=== PATIENT | male | born 1955 | race Two or more races ===

== ENCOUNTER 2020-05-22 06:53 | Outpatient (REF) | payer OTHER, SELFPAY ==
[2020-05-22 09:34] LABS: Alanine Aminotransferase 13 U/L (0-40); Alkaline Phosphatase 77 U/L (39-117); Anion Gap 13 (12-20); Aspartate Amino Transferase 16 U/L (5-37); Bilirubin Total 0.5 mg/dL (0.0-1.0); Blood Urea Nitrogen 16 mg/dL (9-16); Calcium 8.8 mg/dL (8.4-10.2); Carbon Dioxide 27 mmol/L (22-29); Chloride 103 mmol/L (96-108); Cholesterol 140 mg/dL; Estimated Glomerular Filt Rate > 60; Glucose Fasting 92 mg/dL (60-99); HDL Cholesterol 42 mg/dL; LDL Cholesterol Calculated 76 mg/dl; Potassium 4.1 mmol/l (3.3-5.1); Sodium 139 mmol/L (135-145); Total Protein 7.3 g/dL (6.5-8.0); Triglycerides 114 mg/dL
[2020-05-22 10:14] LABS: PSA,Total (Free>4and<10) 0.62 ng/mL (0.00-4.00)
== END 2020-05-22 06:54 | disposition home or self-care (01) ==
LOC: HO.LAB 06:53
PROVIDERS: Visit Provider Internal Medicine
DX: I10 Essential (primary) hypertension (principal); F52.4 Premature ejaculation
CPT/HCPCS: 80053; 80061; 84153

== ENCOUNTER → 2020-05-24 08:36 | Outpatient (BNVA) | payer OTHER, SELFPAY | PROVIDERS: PCP Internal Medicine; Referring Provider Internal Medicine; Visit Provider Nurse Practitioner | DX: K59.04 Chronic idiopathic constipation (principal); K58.0 Irritable bowel syndrome with diarrhea; K21.9 Gastro-esophageal reflux disease without esophagitis; K27.9 Peptic ulcer, site unspecified, unspecified as acute or chronic, without hemorrhage or perforation; Z79.899 Other long term (current) drug therapy; Z90.49 Acquired absence of other specified parts of digestive tract | CPT/HCPCS: 99212 ==

== ENCOUNTER → 2020-07-04 15:22 | Outpatient (BNVA) | payer OTHER, SELFPAY | PROVIDERS: PCP Internal Medicine; Visit Provider Student in an Organized Health Care Education/Training Program | DX: Z76.89 Persons encountering health services in other specified circumstances (principal) ==

== ENCOUNTER → 2020-07-25 13:34 | Outpatient (BNVA) | payer OTHER, SELFPAY | PROVIDERS: PCP Internal Medicine; Visit Provider Internal Medicine Cardiovascular Disease | DX: I48.0 Paroxysmal atrial fibrillation (principal); Z86.79 Personal history of other diseases of the circulatory system | CPT/HCPCS: 93005; 99212 ==

== ENCOUNTER → 2020-08-01 09:05 | Outpatient (BNVA) | payer OTHER, SELFPAY | PROVIDERS: PCP Internal Medicine; Visit Provider Nurse Practitioner ==

== ENCOUNTER 2020-10-02 09:25 | Outpatient (REF) | payer OTHER, SELFPAY | END 2020-10-02 09:26 | disposition home or self-care (01) | LOC: HO.LAB 09:25 | PROVIDERS: Visit Provider Internal Medicine | DX: Z20.822 Contact with and (suspected) exposure to COVID-19 (principal) | CPT/HCPCS: 36415; C9803; U0003; U0005 ==

== ENCOUNTER → 2020-10-31 09:43 | Outpatient (BNVA) | payer OTHER, SELFPAY | PROVIDERS: PCP Internal Medicine; Visit Provider Nurse Practitioner | DX: K58.9 Irritable bowel syndrome, unspecified (principal); K21.9 Gastro-esophageal reflux disease without esophagitis; K59.04 Chronic idiopathic constipation; K27.9 Peptic ulcer, site unspecified, unspecified as acute or chronic, without hemorrhage or perforation ==

== ENCOUNTER → 2020-11-29 10:20 | Outpatient (REF) | payer MEDICARE, MEDICAID, SELFPAY ==
--- NOTE | 2020-11-29 10:25 | CA_ITS ---
Transthoracic Echocardiogram Patient (Last, First, Middle): Vaughn Antonio, Gender: Male Date of : 1955 Age: 65 Procedure Date: 11/29/2020 Procedure Type: Transthoracic Echocardiogram Location: OP Height: 180.34 cm Weight: 156.95 kg BSA: 2.66 m2 Heart Rate: bpm BP: 130 / 71 mmHg Customer Engagement Representative: WALLACE Referring MD: Christiano Reyes MD Lan Analyst: Christiano Reyes MD Symptoms: I48.0 - Paroxysmal atrial fibrillation Study Quality: Fair ECG Rhythm: Sinus Conclusions: - 1. Normal LV systolic function with mild LVH with impaired relaxation filling pattern 2. Mildly dilated left atrium 3. Normal cardiac valvular Doppler 4. Normal RV systolic pressure 5. No pericardial effusion Findings Procedure Information Contrast agent, definity, is being given per protocol without apparent complications. Left Ventricle Normal left ventricular size and systolic function. There is mildly increased left ventricular wall thickness. The visually estimated ejection fraction is between 60-65%. Spectral Doppler is indicative of an impaired relaxation filling pattern. E/E prime ratio is between 8 and 15 consistent with indeterminate filling pressures. Right Ventricle Normal right ventricular cavity size and systolic function. Atria The left atrium is mildly dilated. Interatrial shunt cannot be excluded. The right atrium is normal in size. Aortic Valve The aortic valve structure and function is likely normal. There is no aortic valve stenosis. There is no aortic valve regurgitation. Mitral Valve Likely normal mitral valve structure and function. There is trace mitral valve regurgitation. There is no mitral valve stenosis. Pulmonic Valve The pulmonic valve was not well visualized. Tricuspid Valve Likely normal tricuspid valve structure and function. There is trace tricuspid valve regurgitation. The right ventricular systolic pressure is normal. The right ventricular systolic pressure is 32 mmHg. There is no evidence of pulmonary hypertension. Great Vessels All visible segments of the aorta are normal in size. The pulmonary artery was not well visualized. Venous The inferior vena cava is normal in size and collapses greater than 50% with inspiration. Pericardium/Pleural There is no evidence of pericardial effusion. Prior Study Comparison No significant change compared to prior study dated: 01/04/2020. Measurements 2D Linear Measurements IVSd: 1.23 0.6-0.9/0.6-1.0 cm LVIDd: 6.20 3.9-5.3/4.2-5.9 cm LVIDd Index: 2.33 2.4-3.2/2.2-3.1 cm/m2 LVIDs: 4.53 2.0-3.6 cm LVPWd: 1.12 0.7-1.1 cm Ao Root: 2.80 2.1-3.5 cm LA Diam: 4.10 2.7-3.8/3.0-4.0 cm LAIDs Index: 1.54 1.5-2.3 cm/m2 LV Mass: 402.17 67-162/88-224 g LV Mass Index: 151.19 43-95/49-115 g/m2 LVOT Diam: 2.20 3.0+(-)1.3 cm 2D Systolic Function EF 4C: 67.80 >55% EF 2C: 59.60 >55% EF BiP: 63.80 >55% Mitral Valve MV Pk E: 0.78 MV PK A: 0.93 MV Decel Time: 294.00 E/A: 0.80 E'Lateral: 5.66 E'Medial: 5.44 E/E' Med: 14.40 E/E' Lat: 13.80 PHT: 86.00 MVA PHT: 2.56 Decel [place]: 2.67 Aortic Valve AoV Pk Niko: 1.79 AoV Pk Grad: 13.00 LVOT LVOT Pk Niko: 1.12 LVOT Mn Niko: 0.75 LVOT VTI: 0.26 LVOT Pk Grad: 5.00 LVOT Mn Grad: 3.00 LVOT Diam: 2.20 LVOT Area: 3.80 Diastolic Function MV Pk E: 0.78 MV Pk A: 0.93 E/A: 0.80 E'Medial: 5.44 E/E' Med: 14.40 E' Laterial: 5.66 E/E' Lat: 13.80 Tricuspid Valve TR Pk Niko: 2.67 TR Pk Grad: 29.00 RA Press: 3.00 RVSP: 32.00 Great Vessels Aorta Ao Root-2D: 2.80 2.0-3.7 cm Ao Asc: 3.30 2.1-3.4 cm Updated in Other Vendor System with Status of Final Christiano Reyes MD electronically signed on 12/01/2020 12:45:08 PM with status of Final
== END ==
LOC: HO.CARD 10:20
PROVIDERS: Visit Provider Internal Medicine Cardiovascular Disease
DX: I10 Essential (primary) hypertension (principal); I48.0 Paroxysmal atrial fibrillation; Z86.79 Personal history of other diseases of the circulatory system
CPT/HCPCS: 93306; Q9957

== ENCOUNTER → 2021-01-11 10:41 | Outpatient (BNVA) | payer MEDICARE, MEDICAID, SELFPAY | PROVIDERS: PCP Internal Medicine; Visit Provider Student in an Organized Health Care Education/Training Program | DX: M89.49 Other hypertrophic osteoarthropathy, multiple sites (principal) | CPT/HCPCS: 99212 ==

== ENCOUNTER → 2021-02-06 08:46 | Outpatient (BNVA) | payer MEDICARE, MEDICAID, SELFPAY | PROVIDERS: PCP Internal Medicine; Referring Provider Internal Medicine; Visit Provider Internal Medicine Cardiovascular Disease | DX: I48.0 Paroxysmal atrial fibrillation (principal); Z86.79 Personal history of other diseases of the circulatory system | CPT/HCPCS: 99212 ==

== ENCOUNTER → 2021-02-13 11:05 | Outpatient (BNVA) | payer MEDICARE, MEDICAID, SELFPAY | PROVIDERS: PCP Internal Medicine; Visit Provider Nurse Practitioner Family | DX: Z13.89 Encounter for screening for other disorder (principal) | CPT/HCPCS: Q3014 ==

== ENCOUNTER → 2021-04-17 15:33 | Outpatient (BNVA) | payer MEDICARE, MEDICAID, SELFPAY | PROVIDERS: PCP Internal Medicine; Visit Provider Nurse Practitioner | DX: Z12.11 Encounter for screening for malignant neoplasm of colon (principal); K27.9 Peptic ulcer, site unspecified, unspecified as acute or chronic, without hemorrhage or perforation; K21.9 Gastro-esophageal reflux disease without esophagitis; K59.04 Chronic idiopathic constipation; I48.0 Paroxysmal atrial fibrillation; G47.33 Obstructive sleep apnea (adult) (pediatric); E66.01 Morbid (severe) obesity due to excess calories; Z79.01 Long term (current) use of anticoagulants | CPT/HCPCS: Q3014 ==

== ENCOUNTER 2021-05-25 13:30 | Outpatient (REF) | payer MEDICARE, MEDICAID, SELFPAY | END 2021-05-25 13:31 | disposition home or self-care (01) | LOC: HO.LAB 13:30 | PROVIDERS: Visit Provider Internal Medicine | DX: Z20.822 Contact with and (suspected) exposure to COVID-19 (principal) | CPT/HCPCS: C9803; U0003; U0005 ==

== ENCOUNTER 2021-08-02 09:35 | Outpatient (REF) | payer MEDICARE, MEDICAID, SELFPAY ==
[2021-08-02 11:53] LABS: Anion Gap 13 (12-20); Blood Urea Nitrogen 13 mg/dL (9-16); Calcium 9.6 mg/dL (8.4-10.2); Carbon Dioxide 23 mmol/L (22-29); Chloride 106 mmol/L (96-108); Estimated Glomerular Filt Rate 59; Glucose Random 154 mg/dL (60-115); Potassium 3.9 mmol/L (3.3-5.1); Sodium 138 mmol/L (135-145)
== END 2021-08-02 09:36 | disposition home or self-care (01) ==
LOC: HO.LAB 09:35
PROVIDERS: PCP Internal Medicine; Referring Provider Internal Medicine; Visit Provider Internal Medicine Cardiovascular Disease
DX: I48.0 Paroxysmal atrial fibrillation (principal); Z86.79 Personal history of other diseases of the circulatory system
CPT/HCPCS: 36415; 80048; 93005; 99212

== ENCOUNTER → 2021-10-23 09:16 | Outpatient (BNVA) | payer MEDICARE, MEDICAID, SELFPAY | PROVIDERS: PCP Internal Medicine; Visit Provider Nurse Practitioner Family | DX: G47.33 Obstructive sleep apnea (adult) (pediatric) (principal); Z99.89 Dependence on other enabling machines and devices | CPT/HCPCS: 99212 ==

== ENCOUNTER → 2021-11-22 10:07 | Outpatient (BNVA) | payer MEDICARE, MEDICAID, SELFPAY | PROVIDERS: PCP Internal Medicine; Referring Provider Internal Medicine; Visit Provider Nurse Practitioner | DX: Z12.11 Encounter for screening for malignant neoplasm of colon (principal); K21.9 Gastro-esophageal reflux disease without esophagitis; K59.04 Chronic idiopathic constipation | CPT/HCPCS: 99212 ==

== ENCOUNTER → 2022-01-11 08:39 | Outpatient (REF) | payer MEDICARE, MEDICAID, SELFPAY ==
--- NOTE | 2022-01-11 08:42 | CA_ITS ---
Transthoracic Echocardiogram Patient (Last, First, Middle): Vaughn Antonio, Gender: Male Date of : 1955 Age: 66 Procedure Date: 01/11/2022 Procedure Type: Transthoracic Echocardiogram Location: OP Height: 180.34 cm Weight: 156.49 kg BSA: 2.66 m2 Heart Rate: bpm BP: 139 / 75 mmHg International Marketing Specialist: TO Referring MD: Christiano Reyes MD Symptoms: Z86.79 - Personal history of other diseases of the circul... Study Quality: Technically Difficult/Contrast ECG Rhythm: Sinus Conclusions: - The left ventricular systolic function is normal. The calculated ejection fraction is 60% by biplane method. - No obvious valvular pathology seen on this study. Findings Procedure Information Contrast agent, definity, is being given per protocol without apparent complications. Left Ventricle Normal left ventricular cavity size. There is mildly increased left ventricular wall thickness. The left ventricular systolic function is normal. The calculated ejection fraction is 60% by biplane method. There is no evidence of regional wall motion abnormalities. Diastolic function is normal for age. Right Ventricle Normal right ventricular cavity size and systolic function. Atria The left atrium is mildly dilated. The right atrium is normal in size. Aortic Valve There is a normal trileaflet aortic valve. There is no aortic valve stenosis. There is no aortic valve regurgitation. Mitral Valve The mitral valve appears normal. There is mild mitral annular calcification. There is no mitral valve regurgitation. There is no mitral valve stenosis. Pulmonic Valve There is trace pulmonic valve regurgitation. Tricuspid Valve There is trace tricuspid valve regurgitation. The pulmonary artery systolic pressure is normal. Great Vessels The aortic annulus, sinuses of valsalva, and asc aorta are normal in size. Small plaque is seen in the sino tubular ridge. Venous The inferior vena cava was not well visualized. Pericardium/Pleural There is no evidence of pericardial effusion. Prior Study Comparison No significant change compared to prior study dated: 11/29/2020. Recommendations, Care & Conclusions No obvious valvular pathology seen on this study. Measurements 2D Linear Measurements IVSd: 1.17 0.6-0.9/0.6-1.0 cm LVIDd: 6.31 3.9-5.3/4.2-5.9 cm LVIDd Index: 2.37 2.4-3.2/2.2-3.1 cm/m2 LVIDs: 4.16 2.0-3.6 cm LVPWd: 1.15 0.7-1.1 cm LA Diam: 4.30 2.7-3.8/3.0-4.0 cm LAIDs Index: 1.62 1.5-2.3 cm/m2 LV Mass: 407.16 67-162/88-224 g LV Mass Index: 153.07 43-95/49-115 g/m2 LVOT Diam: 2.10 3.0+(-)1.3 cm 2D Systolic Function EF 4C: 57.90 >55% EF 2C: 62.00 >55% EF BiP: 59.80 >55% Mitral Valve MV Pk E: 0.89 MV PK A: 0.93 MV Decel Time: 269.00 E/A: 1.00 E'Lateral: 7.29 E'Medial: 5.11 E/E' Med: 17.40 E/E' Lat: 12.20 PHT: 79.00 MVA PHT: 2.78 Decel [place]: 3.31 Aortic Valve AoV Pk Niko: 1.94 AoV Mn Niko: 1.33 AoV VTI: 0.46 AoV Pk Grad: 15.00 Aov Mn Grad: 8.00 DARNELL Cont.VTI: 2.16 LVOT LVOT Pk Niko: 1.20 LVOT Mn Niko: 0.73 LVOT VTI: 0.29 LVOT Pk Grad: 6.00 LVOT Mn Grad: 3.00 LVOT Diam: 2.10 LVOT Area: 3.46 Diastolic Function MV Pk E: 0.89 MV Pk A: 0.93 E/A: 1.00 E'Medial: 5.11 E/E' Med: 17.40 E' Laterial: 7.29 E/E' Lat: 12.20 Right Ventricle TAPSE (mm): 28.70 TVS' Niko: 15.20 Tricuspid Valve TR Pk Niko: 2.85 TR Pk Grad: 33.00 Great Vessels Aorta Sinus of Valsalva: 3.28 2.0-3.[address] [place]: 2.28 1.7-3.4 cm Ao Asc: 3.60 2.1-3.4 cm Updated in Other Vendor System with Status of Final Gamal Elizabeth MD electronically signed on 01/13/2022 12:43:04 PM with status of Final
== END ==
LOC: HO.CARD 08:39
PROVIDERS: PCP Internal Medicine; Visit Provider Internal Medicine Cardiovascular Disease
DX: M89.49 Other hypertrophic osteoarthropathy, multiple sites (principal); M25.561 Pain in right knee; M25.562 Pain in left knee; M54.50 Low back pain, unspecified; Z79.899 Other long term (current) drug therapy; Z86.79 Personal history of other diseases of the circulatory system
CPT/HCPCS: 93306; 99212; Q9957

== ENCOUNTER → 2022-02-04 09:26 | Outpatient (BNVA) | payer MEDICARE, MEDICAID, SELFPAY | PROVIDERS: PCP Internal Medicine; Referring Provider Internal Medicine; Visit Provider Internal Medicine Cardiovascular Disease | DX: I48.0 Paroxysmal atrial fibrillation (principal); I10 Essential (primary) hypertension; Z86.79 Personal history of other diseases of the circulatory system; Z79.01 Long term (current) use of anticoagulants | CPT/HCPCS: 99212 ==

== ENCOUNTER 2022-03-21 06:40 | Outpatient (REF) | payer MEDICARE, MEDICAID, SELFPAY ==
[2022-03-21 06:56] LABS: MANUAL DIFF FLAG NO
[2022-03-21 07:41] LABS: Basophils Absolute Auto 0.1 X10*3/uL (0.0-0.2); Basophils Percent Auto 0.7 % (0-2); Eosinophils Absolute Auto 0.2 X10*3/uL (0.0-0.4); Eosinophils Percent Auto 1.9 % (0-4); Hematocrit 43.8 % (42.0-52.0); Hemoglobin 14.2 g/dl (14.0-18.0); Imm Gran Abs Auto 0.03 X10*3/uL (0.00-0.03); Imm Gran Pct Auto 0.3 % (0.0-0.4); Lymphocytes Absolute Auto 3.2 X10*3/uL (1.2-4.9); Lymphocytes Percent Auto 35.6 % (20-40); Mean Corpuscular HGB Conc 32.4 g/dl (31.0-36.0); Mean Corpuscular Hemoglobin 28.6 pg (27.0-33.0); Mean Corpuscular Volume 88.3 fL (80.0-98.0); Mean Platelet Volume 10.4 fL (9.4-12.4); Monocytes Absolute Auto 0.6 X10*3/uL (0.1-1.2); Monocytes Percent Auto 6.8 % (2-11); Neutrophils Absolute Auto 4.9 x10*3/uL (2.0-8.3); Neutrophils Percent Auto 54.7 % (45-73); Platelet Count 172 X10*3/uL (160-400); Red Blood Count 4.96 X10*6/uL (4.60-5.80); Red Cell Distribution Width 13.2 % (11.0-16.0); White Blood Count 8.9 X10*3/uL (4.8-10.8)
[2022-03-21 08:14] LABS: Alanine Aminotransferase 11 U/L (0-40); Albumin Level 4.1 g/dL (3.5-5.0); Alkaline Phosphatase 79 U/L (39-117); Anion Gap 16 (12-20); Aspartate Amino Transferase 15 U/L (5-37); Bilirubin Total 0.7 mg/dL (0.0-1.0); Blood Urea Nitrogen 11 mg/dL (9-16); Calcium 9.2 mg/dL (8.4-10.2); Carbon Dioxide 24 mmol/L (22-29); Chloride 104 mmol/L (96-108); Cholesterol 138 mg/dL; Estimated Glomerular Filt Rate > 60; Glucose Fasting 90 mg/dL (60-99); HDL Cholesterol 43 mg/dL; LDL Cholesterol Calculated 78 mg/dl; Potassium 4.1 mmol/L (3.3-5.1); Sodium 140 mmol/L (135-145); Total Protein 7.4 g/dL (6.5-8.0); Triglycerides 88 mg/dL
[2022-03-21 08:45] LABS: Thyroid Stimulating Hormone 2.42 uIU/mL (0.32-4.0); Vitamin D 25-OH Total 18.3 ng/mL (>30)
== END 2022-03-21 06:41 | disposition home or self-care (01) ==
LOC: HO.LAB 06:40
PROVIDERS: PCP Internal Medicine; Visit Provider Internal Medicine
DX: Z00.00 Encounter for general adult medical examination without abnormal findings (principal); E66.01 Morbid (severe) obesity due to excess calories; E55.9 Vitamin D deficiency, unspecified; M89.49 Other hypertrophic osteoarthropathy, multiple sites
CPT/HCPCS: 36415; 80053; 80061; 82306; 84443; 85025

== ENCOUNTER → 2022-04-23 09:10 | Outpatient (BNVA) | payer MEDICARE, MEDICAID, SELFPAY | PROVIDERS: PCP Internal Medicine; Visit Provider Nurse Practitioner Family | DX: G47.33 Obstructive sleep apnea (adult) (pediatric) (principal) | CPT/HCPCS: 99212 ==

== ENCOUNTER → 2022-06-12 09:52 | Outpatient (BNVA) | payer MEDICARE, MEDICAID, SELFPAY | PROVIDERS: PCP Internal Medicine; Visit Provider Nurse Practitioner | DX: K21.9 Gastro-esophageal reflux disease without esophagitis (principal); K58.9 Irritable bowel syndrome, unspecified; K27.9 Peptic ulcer, site unspecified, unspecified as acute or chronic, without hemorrhage or perforation | CPT/HCPCS: 99212 ==

== ENCOUNTER 2022-09-02 07:30 | Outpatient (REF) | payer OTHER, SELFPAY | END 2022-09-02 07:31 | disposition home or self-care (01) | LOC: HO.LAB 07:30 | PROVIDERS: PCP Internal Medicine; Visit Provider Internal Medicine | DX: Z13.89 Encounter for screening for other disorder (principal) ==

== ENCOUNTER 2022-09-04 07:42 | Outpatient (REF) | payer MEDICARE, SELFPAY ==
--- NOTE | ~2022-09-04 | US_ITS ---
EXAMINATION: US RETROPERITONEAL LIMITED (AORTA) CLINICAL INFORMATION: Personal history of nicotine dependence. COMPARISON: None TECHNIQUE: Varghese-scale, color Doppler and spectral Doppler evaluation of the abdominal aorta. FINDINGS: The aorta is normal. The measurements of the aorta in maximum AP and transverse dimensions respectively are as follows: Proximal: 2.7 x 3.0 cm. Mid: 2.2 x 3.0 cm. Distal: 2.4 x 3.1 cm. PSV: 68.1 cm/s. The measurements of the common iliac arteries in maximum AP and TRV dimensions are as follows: Right Common Iliac Artery: 1.6 x 1.7 cm. Left Common Iliac Artery: 1.4 x 1.6 cm. US/US abdominal aortic aneurysm IMPRESSION: There is mild aneurysmal dilatation of the abdominal aorta and bilateral iliac arteries. Continued ultrasound surveillance is recommended. Elective VASCULAR SURGERY evaluation and management is considered.
== END 2022-09-04 07:43 | disposition home or self-care (01) ==
LOC: HO.US 07:42
PROVIDERS: Visit Provider Internal Medicine
DX: Z87.891 Personal history of nicotine dependence (principal)
CPT/HCPCS: 76706

== ENCOUNTER 2022-09-04 07:52 | Outpatient (REF) | payer MEDICARE, SELFPAY ==
[2022-09-04 08:08] LABS: Appearance Urine Clear; Color Urine Yellow; Glucose Urine UA Negative (Negative); Leukocyte Esterase Urine Small (1+) (Negative); Nitrite Urine Negative (Negative); Specific Gravity - Urine 1.025 (1.005-1.025); UMIC TRIGGER UACC YES; Urine Blood Negative (Negative); Urine Ketones Negative (Negative); Urine Protein Negative (Neg-Trace)
[2022-09-04 08:13] LABS: Bacteria Urine None Seen (None Seen); Hyaline Casts Urine 0-2 /LPF (0-2); RBC Urine 0-2 /HPF (0-2); Squamous Epithelial Cell Urine 0-2 /HPF (0-2); UACC Culture Trigger YES; WBC Urine 21-50 /HPF (0-5)
== END 2022-09-04 07:53 | disposition home or self-care (01) ==
LOC: HO.LNP 07:52
PROVIDERS: Visit Provider Internal Medicine
DX: R30.0 Dysuria (principal)
CPT/HCPCS: 81001; 81003; 87086

== ENCOUNTER 2022-10-09 07:33 | Outpatient (REF) | payer OTHER, MEDICAID, SELFPAY ==
--- NOTE | ~2022-10-09 | XR_ITS ---
EXAMINATION: Knee x-ray CLINICAL INFORMATION: Bilateral knee pain COMPARISON: Previous exam February 2016 TECHNIQUE: 4 views of each knee FINDINGS: Right: Bone alignment is normal. No fracture or dislocation. Arthritis at the medial femoral tibial and patellofemoral joints with joint space narrowing and osteophyte formation. Lateral tilt of the patella on the sunrise view. Small joint effusion. Question ossified intra-articular loose body. Left: Bone alignment is normal. No fracture or dislocation. Arthritis at the patellofemoral and medial femoral tibial joints. Lateral tilt of the patella on the sunrise view. Small joint effusion. XR/XR knee LT 3V IMPRESSION: Bilateral degenerative changes, right greater than left.
--- NOTE | ~2022-10-09 | XR_ITS ---
EXAMINATION: Knee x-ray CLINICAL INFORMATION: Bilateral knee pain COMPARISON: Previous exam February 2016 TECHNIQUE: 4 views of each knee FINDINGS: Right: Bone alignment is normal. No fracture or dislocation. Arthritis at the medial femoral tibial and patellofemoral joints with joint space narrowing and osteophyte formation. Lateral tilt of the patella on the sunrise view. Small joint effusion. Question ossified intra-articular loose body. Left: Bone alignment is normal. No fracture or dislocation. Arthritis at the patellofemoral and medial femoral tibial joints. Lateral tilt of the patella on the sunrise view. Small joint effusion. XR/XR knee RT 3V IMPRESSION: Bilateral degenerative changes, right greater than left.
[2022-10-09 08:24] LABS: Appearance Urine Clear; Color Urine Yellow; Glucose Urine UA Negative (Negative); Leukocyte Esterase Urine Small (1+) (Negative); Nitrite Urine Negative (Negative); PH 5.5 (5.0-9.0); Specific Gravity - Urine 1.025 (1.005-1.025); UMIC TRIGGER UACC YES; Urine Blood Negative (Negative); Urine Ketones Negative (Negative); Urine Protein 30 (1+) mg/dL (Neg-Trace)
[2022-10-09 08:29] LABS: Bacteria Urine None Seen (None Seen); Hyaline Casts Urine 0-2 /LPF (0-2); RBC Urine 0-2 /HPF (0-2); UACC Culture Trigger YES
[2022-10-09 08:43] LABS: Alanine Aminotransferase 18 U/L (0-40); Albumin Level 4.2 g/dL (3.5-5.0); Alkaline Phosphatase 81 U/L (39-117); Anion Gap 16 (12-20); Aspartate Amino Transferase 16 U/L (5-37); Bilirubin Total 0.7 mg/dL (0.0-1.0); Blood Urea Nitrogen 26 mg/dL (9-16); Calcium 9.5 mg/dL (8.4-10.2); Carbon Dioxide 22 mmol/L (22-29); Chloride 107 mmol/L (96-108); Cholesterol 154 mg/dL; Estimated Glomerular Filt Rate 56; Glucose Fasting 117 mg/dL (60-99); HDL Cholesterol 45 mg/dL; LDL Cholesterol Calculated 82 mg/dl; Sodium 141 mmol/L (135-145); Total Protein 7.3 g/dL (6.5-8.0); Triglycerides 136 mg/dL
[2022-10-09 09:04] LABS: Folate 5.7 ng/mL (> or = 4.0); Vitamin B12 213 pg/mL (200-900); Vitamin D 25-OH Total 35.1 ng/mL (>30)
== END 2022-10-09 07:34 | disposition home or self-care (01) ==
LOC: HO.XRAY 07:33
PROVIDERS: Absent Provider Nurse Practitioner Family; PCP Internal Medicine; Visit Provider Internal Medicine
DX: E53.8 Deficiency of other specified B group vitamins (principal); I48.0 Paroxysmal atrial fibrillation; E55.9 Vitamin D deficiency, unspecified; E78.5 Hyperlipidemia, unspecified; M25.561 Pain in right knee; M25.562 Pain in left knee; K21.9 Gastro-esophageal reflux disease without esophagitis; K58.9 Irritable bowel syndrome, unspecified; R82.90 Unspecified abnormal findings in urine
CPT/HCPCS: 36415; 73562; 80053; 80061; 81001; 81003; 82306; 82607; 82746; 87086; 99212

== ENCOUNTER → 2022-10-22 13:04 | Outpatient (BNVA) | payer OTHER, MEDICAID, SELFPAY | PROVIDERS: PCP Internal Medicine; Visit Provider Surgery Vascular Surgery | DX: I71.40 Abdominal aortic aneurysm, without rupture, unspecified (principal) | CPT/HCPCS: 99212 ==

== ENCOUNTER → 2022-11-01 09:14 | Outpatient (BNVA) | payer MEDICARE, MEDICAID, SELFPAY | PROVIDERS: PCP Internal Medicine; Visit Provider Nurse Practitioner Family | DX: M17.0 Bilateral primary osteoarthritis of knee (principal); M54.50 Low back pain, unspecified; M25.511 Pain in right shoulder; M25.512 Pain in left shoulder; R20.0 Anesthesia of skin; R20.2 Paresthesia of skin | CPT/HCPCS: 99212 ==

== ENCOUNTER 2022-11-13 12:05 | Outpatient (REF) | payer OTHER, MEDICAID, SELFPAY ==
--- NOTE | 2022-11-13 09:45 | EMG_ITS ---
Please see scanned EMG / Nerve Conduction Report. MTDD
== END 2022-11-13 12:06 | disposition home or self-care (01) ==
LOC: HO.NEURO 12:05
PROVIDERS: PCP Internal Medicine; Visit Provider Nurse Practitioner Family
DX: R20.0 Anesthesia of skin (principal); R20.2 Paresthesia of skin
CPT/HCPCS: 95885; 95910

== ENCOUNTER 2023-01-24 09:22 | Outpatient (AMB) | payer OTHER, MEDICAID, SELFPAY ==
--- NOTE | 2023-01-24 09:42 | A.OFFVIS_ITS ---
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 States this started about 2-3 months and worsens at night time. Vaughn states he has on and off numbness through out the day. At times he has pain by his elbow and feels like a cold radiating pain down his arm. States he was seen by his neurologist who RX' him b/l hand wrist but was unable to obtain them due to miscommunication between providers. EMG done. 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 He complains of numbness in the median nerve distribution of his right hand, along with some numbness & coldness radiating down from his elbow. His symptoms are intermittent, but daily, and worse at night or in cold weather or air conditioning indoors. He says his numbness has been present for ~3 months. He also complains of pain in his right elbow. He follows with Rheumatology for generalized pain, but there is no diagnosis of inflammatory arthritis. He used to take Tramadol but stopped due to GI upset, and now he just uses Tylenol for pain relief. He says he was given bilateral cock-up splints to wear at night. He says he has an MRI scheduled on 01/27/23 to view his C-spine due to radic ulopathy. He has a Hx of aortic aneurysm & afib and is taking Xarelto [facility] Medical History Chronic idiopathic constipation History of cardiomyopathy HTN (hypertension) Mild asthma Obstructive sleep apnea Paroxysmal atrial fibrillation Physical exam Primary osteoarthritis involving multiple joints Shortness of breath Surgical History History of cholecystectomy History of esophagogastroduodenoscopy (EGD) Family History Mother Diabetes High blood pressure Heart attack Heart problem Father Diabetes Stomach problems Brother Diabetes High blood pressure Stomach problems Paternal Grandmother Lung cancer Sister Cancer Stomach problems Maternal Grandfather Heart problem Maternal Grandmother Heart problem Family/Other Substance use disorder Social History Household Members: Children Housing: Apartment Alcohol intake: former Patient Tobacco Use Status: Former Tobacco user Tobacco use type: Cigarette Cigarettes Per Day: 4 Years Smoked: 10 e-Cigarette/Vaping Use: Never Used Second Hand Smoke Exposure: No service: No Current occupational status: disabled Cognitive needs: Yes Hearing needs: No Vision needs: Yes Review of Systems Const All systems reviewed & are unremarkable except as noted in HPI and below Physical Exam Vital Signs: BMI result Body Mass Index 45.5 Const General: cooperative, healthy appearing and no acute distress Orientation/consciousness: patient oriented x3 HEENT Head: Yes normocephalic and Yes atraumatic Eyes EOM: EOMs intact bilaterally Resp Effort & Inspection: normal respiratory effort and able to speak in complete sentences Cardio Jugular venous distension: no JVD Skin General skin exam: turgor normal Rashes: no rashes Neuro General: patient oriented x3 Extrem Other: Evaluation of Right Upper Extremity: The patient is alert, oriented, and in no acute distress Neuro: Median, Ulnar, Radial nerves motor and sensory intact and sensation is normal to the tips of all digits today in clinic No thenar wasting but some early intrinsic wasting Good APB muscle belly firing and good finger cross Vascular: Cap refill brisk ROM: He can make a fist and extend all his digits Skin: No lacerations or abrasions. General: No Ecchymosis. No Erythema or evidence of infection. Generalized arthritic changes in his hand Nerve Conduction Study: Impression: Mild right carpal tunnel syndrome EMG of the right C5-T1 innervated muscles consistent with right C6 & C8-T1 radiculopathy Dr. Maurice 11/13/22 Psych Appearance: grossly normal Affect: normal affect Attitude: cooperative Assessment & Plan Assessment & Plan (1) Carpal tunnel syndrome of right wrist: Comment: EMG nerve conduction study 11/2022: Mild compression palsy of the right median nerve at the wrist consistent with mild carpal tunnel syndrome. Code(s): G56.01 - Carpal tunnel syndrome, right upper limb (2) Right cervical radiculopathy: Code(s): M54.12 - Radiculopathy, cervical region Plan Assessment & Plan: 1. Right Carpal tunnel syndrome, mild Symptoms intermittent, but daily, worse at night Possible double-crush injury with regards to cervical radiculopathy I educated him about this condition I discussed operative and non-operative treatment options The patient would like to proceed with surgery The risks and benefits of operative treatment were discussed with the patient and the patient wishes to proceed with surgery. These risks include, but are not limited to risk of damage to blood vessels, nerves, tendons, infection, recurrence, incomplete relief of preoperative symptoms, persistent pain, possible need for further surgery and the risks associated with regional blocks and anesthesia. The plan is to take the patient to the operating room sometime in the next few weeks for the following procedures: 1. Right carpal tunnel release, under local All of the preoperative paperwork including the consent was filled out today. All the patient's questions were answered. The patient understands that they will be contacted by our care team coordinator scheduler soon to schedule this procedure He denies Diabetes, asthma, heart, lung, kidney issues He is on Xarelto with a hx of aortic aneurysm and afib 2. Right-sided cervical radiculopathy Patient reports an MRI was ordered by Rheumatology and is scheduled for 01/27/23 I think he will likely need a referral to Pain Management for further work-up, but Rheumatology appears to be following this No intervention warranted at this time. Scribed for Maki Desai MD by Kaden Cary, medical dosimetrist, on 01/24/23 at 10:30 AM, EST. Coding Level of Care Code New Pt Level 4 (55042) Diagnoses Carpal tunnel syndrome of right wrist G56.01 Right cervical radiculopathy M54.12
[2023-01-24 09:43] VITALS: BMI 45.5
== END 2023-01-24 11:21 | disposition home or self-care (01) ==
PROVIDERS: PCP Internal Medicine; Visit Provider Orthopaedic Surgery
DX: G56.01 Carpal tunnel syndrome, right upper limb (principal); M54.12 Radiculopathy, cervical region
CPT/HCPCS: 99204

== ENCOUNTER → 2023-01-24 09:22 | Outpatient (BNVA) | payer OTHER, MEDICAID, SELFPAY | PROVIDERS: PCP Internal Medicine; Visit Provider Orthopaedic Surgery | DX: G56.01 Carpal tunnel syndrome, right upper limb (principal); M54.12 Radiculopathy, cervical region | CPT/HCPCS: 99202 ==

== ENCOUNTER → 2023-02-06 08:58 | Outpatient (REF) | payer MEDICARE, MEDICAID, SELFPAY | LOC: HO.CARD 08:58 | PROVIDERS: PCP Internal Medicine; Visit Provider Internal Medicine Cardiovascular Disease | DX: Z13.89 Encounter for screening for other disorder (principal) ==

== ENCOUNTER 2023-02-06 09:42 | Emergency (ER) | payer OTHER, MEDICAID, SELFPAY ==
[2023-02-06 09:47] VITALS: BP 141/76; PULSE 107; RESP 22; TEMP 36.8; O2SAT 97; BMI 48.6
--- NOTE | 2023-02-06 09:50 | ECG_ITS ---
Test Reason : cp Blood Pressure : / mmHG Vent. Rate : 117 BPM Atrial Rate : 000 BPM P-R Int : 000 ms QRS Dur : 100 ms QT Int : 312 ms P-R-T Axes : 000 044 244 degrees QTc Int : 435 ms Atrial fibrillation with rapid ventricular response T wave abnormality, consider inferior ischemia Abnormal ECG When compared with ECG of 23-DEC-2018 14:36, Atrial fibrillation has replaced Sinus rhythm Vent. rate has increased BY 41 BPM Referred By: Generic ED Physician Electronically Signed By:LETY MADDOX MD
--- NOTE | 2023-02-06 10:30 | ED_ITS ---
HPI - Arrhythmia/Palpitations General Chief Complaint: Arrhythmia/Palpitations Stated Complaint: Afib Time Seen by Provider: 02/06/23 10:02 Source: patient and other (Hydrotherapist, Dr. Reyes) Mode of arrival: wheelchair Limitations: no limitations History of Present Illness HPI narrative: 67-year-old male with a history of paroxysmal atrial fibrillation who was sent to emergency department from the cardiology lab for evaluation of atrial fibrillation with rapid ventricular rate of 150. The patient states that he was feeling well. He came to the hospital today for a routine echocardiogram. He denied chest pain, shortness of breath, dyspnea on exertion, palpitations. He states that he has not noticed any pain or swelling in his lower extremities. The patient had a echocardiogram our commodity merchant, Dr. Reyes and referred to the emergency department for rate control and further management. I did speak to Dr. Reyes in the emergency who recommended rate control with diltiazem as need, if the patient does not spontaneously cardiovert then he wants the patient admitted, kept NPO after midnight for observation and electric cardioversion in the morning. Related Data Home Medications Medication Instructions Recorded Confirmed CPAP (CPAP Machine/Device) #1 ea 10/31/20 11/05/22 Previous Rx's Medication Instructions Recorded azelastine 137 mcg (0.1 %) nasal 2 spray intranasal BID 30 days #30 02/13/21 spray aerosol mL fluticasone propionate 44 1 - 2 puff PO BID #31.8 caps 02/13/21 mcg/actuation HFA aerosol inhaler (Flovent HFA) trazodone 50 mg tablet 50 mg PO BEDTIME PRN sleep 90 days 06/04/21 #90 tabs blood pressure monitor (Blood #1 ea 05/09/22 Pressure Kit) losartan 100 mg tablet 100 mg PO DAILY 90 days #90 caps 06/13/22 metoprolol tartrate 50 mg tablet 50 mg PO BID 90 days #180 caps 06/13/22 rivaroxaban 20 mg tablet (Xarelto) 20 mg PO DAILY 90 days #90 caps 06/13/22 cholecalciferol (vitamin D3) 50 50 mcg PO DAILY 90 days #90 caps 09/10/22 mcg (2,000 unit) capsule famotidine 40 mg tablet (Pepcid) 40 mg PO BEDTIME 30 days #30 tabs 03/29/23 omeprazole 40 mg capsule,delayed 40 mg PO DAILY 30 days #30 caps 10/09/22 release sennosides 8.6 mg tablet (senna) 17.2 mg PO BEDTIME PRN for 10/09/22 constipation #60 tabs docusate sodium 100 mg capsule 100 mg PO DAILY PRN for 10/11/22 constipation #30 caps cock up slint #2 ea 11/01/22 rosuvastatin 5 mg tablet 5 mg PO DAILY 90 days #90 tabs 11/05/22 Allergies Allergy/AdvReac Type Severity Reaction Status Date / Time No Known Allergies Allergy Verified 01/24/23 09:49 Review of Systems Review of Systems: Yes all other systems are reviewed and are negative [facility] Past Medical History [facility] Narrative: Social history: Patient denies tobacco, alcohol and drug use Medical History Chronic idiopathic constipation History of cardiomyopathy HTN (hypertension) Mild asthma Obstructive sleep apnea Paroxysmal atrial fibrillation Physical exam Primary osteoarthritis involving multiple joints Shortness of breath Surgical History History of cholecystectomy History of esophagogastroduodenoscopy (EGD) Family History Family History Mother Diabetes High blood pressure Heart attack Heart problem Father Diabetes Stomach problems Brother Diabetes High blood pressure Stomach problems Paternal Grandmother Lung cancer Sister Cancer Stomach problems Maternal Grandfather Heart problem Maternal Grandmother Heart problem Family/Other Substance use disorder Social History Social History Household Members: Children Housing: Apartment Alcohol intake: never Patient Tobacco Use Status: Former Tobacco user Tobacco use type: Cigarette Cigarettes Per Day: 4 Years Smoked: 10 Smoked in Last 30 Days: No e-Cigarette/Vaping Use: Never Used Second Hand Smoke Exposure: No Use of substances other than those prescribed or required for medical reasons: No Advance Directives: No Advance Directives Information Provided: Yes service: No Current occupational status: disabled Cognitive needs: Yes Hearing needs: No Vision needs: Yes Physical Exam Vital Signs: Vital Signs: Last Vital Signs Temp 98.2 F 02/06/23 09:47 Pulse 94 02/06/23 14:02 Resp 22 H 02/06/23 14:02 BP 128/76 02/06/23 14:02 Pulse Ox 97 02/06/23 14:02 O2 Del Method Room Air 02/06/23 14:02 BMI result Body Mass Index 48.6 Const: General: cooperative and no acute distress Or ientation/consciousness: oriented to person and oriented to place Limitat ions: no limitations HEENT: Head: Yes normal to inspection, Yes normocephalic and Yes atraumatic Ears: external ears normal General nose exam: Normal external nose present Face and sinus: Yes normal facial exam Mouth: Normal oral and palatal mucosa present Throat: Yes posterior oropharynx normal Eyes: General: appearance normal, both eyes and all related structures Pupils: Equal, round and reactive pupils present Neck: Neck: Yes normal visual inspection, Yes no lymphadenopathy, Yes trachea midline and Yes supple Chest: Chest palpation & inspection: normal inspection of the chest and normal palpation of entire chest wall Resp: Effort & Inspection: normal respiratory effort and able to speak in complete sentences Auscultation: clear to auscultation bilaterally Cardio: Other: Irregularly irregular rhythm, normal S1-S2 GI: Inspection: Yes normal to inspection Palpation (GI): Soft to palpation, nontender and no guarding Auscultation: normal bowel sounds : General: Yes no CVA tenderness Back/Spine/Pelvis: Back: no CVA tenderness Skin: General skin exam: no rashes or lesions noted Neuro: General: oriented to person and oriented to place Cranial nerves: Yes CN's II-XII intact bilaterally and Yes Equal, round and reactive pupils present Cognition (Neuro): normal cognition Motor exam (neuro): 5/5 motor strength present throughout Extrem: General: Yes normal to inspection Psych: Appearance: grossly normal Speech and movement: Normal speech and movement present Affect: normal affect Attitude: cooperative Thought process: Normal thought process present Thought content: Normal thought co ntent present Medical Decision Making Medical Decision Making MDM Narrative: 67-year-old male with a history of hypertension, obstructive sleep apnea, asthma, GERD, irritable bowel syndrome, abdominal aortic aneurysm, paroxysmal atrial fibrillation on Xarelto who came to the hospital today for routine echoca rdiogram was found to be in atrial fibrillation with a rapid ventricular rate of 150. The commodity merchant, Dr. Reyes recommended that we control the patient's rate and if he does not spontaneously cardioverted to sinus rhythm the way admitted to the hospitalist service for cardioversion in the morning. I ordered the following evaluation on the patient: CBC, CMP, PT/INR, PTT, troponin, TSH 1433: Laboratory evaluation was unremarkable. Patient's rate has been controlled without any medications. Patient is still in atrial fibrillation on the monitor therefore I will discuss admission with the covering hospitalist. 1503: I did discuss this patient over tiger text with the covering hospitalist, Dr Samuels and the patient will be admitted to the hospital service. Differential Diagnosis Differential diagnosis includes was not limited to myocardial infarction, myocardial ischemia, hyperthyroidism, atrial fibrillation Admission/Observation Consideration of admission/observation: Escalation of care including admission/observation considered Consult Healthcare Provider Management of the patient was discussed with: Special Assets Officer (Hydrotherapist, Dr. Reyes) Lab Data MDM Lab Attestation statement: I reviewed the patient's lab results. My independent interpretation patient's laboratory evaluation is as follows: CBC was normal. Bicarb low 21, BUN elevated 21, glucose elevated 128, BNP was normal. Troponin was detectable but not elevated at 4.2. TSH was normal. 02/06/23 11:46 02/06/23 11:46 Labs: Lab Results 02/06/23 02/06/23 02/06/23 Range/Units 11:46 11:46 11:46 WBC 9.8 (4.8-10.8) X10*3/uL RBC 5.03 (4.60-5.80) X10*6/uL Hgb 14.9 (14.0-18.0) g/dl Hct 45.6 (42.0-52.0) % MCV 90.7 (80.0-98.0) fL MCH 29.6 (27.0-33.0) pg MCHC 32.7 (31.0-36.0) g/dl RDW 13.3 (11.0-16.0) % Plt Count 175 (160-400) X10*3/uL MPV 10.4 (9.4-12.4) fL Immature Gran % (Auto) 0.3 (0.0-0.4) % Neut % (Auto) 67.4 (45-73) % Lymph % (Auto) 23.1 (20-40) % [place] % (Auto) 7.7 (2-11) % Eos % (Auto) 1.0 (0-4) % Baso % (Auto) 0.5 (0-2) % Lymph # (Auto) 2.3 (1.2-4.9) X10*3/uL [place] # (Auto) 0.8 (0.1-1.2) X10*3/uL Eos # (Auto) 0.1 (0.0-0.4) X10*3/uL Baso # (Auto) 0.1 (0.0-0.2) X10*3/uL Abs Immat Gran (auto) 0.03 (0.00-0.03) X10*3/uL Absolute Neuts (auto) 6.6 (2.0-8.3) x10*3/uL Absolute Nucleated RBC 0.000 (0.0-0.012) X10*3/uL Nucleated RBC % (auto) 0.0 (0.0-0.2) /100WBC PT 18.0 H (11.1-13.3) SEC INR 1.5 H (0.9-1.1) APTT 31.4 (26.0-36.4) SEC Sodium 140 (135-145) mmol/L Potassium 3.8 (3.3-5.1) mmol/L Chloride 108 (96-108) mmol/L Carbon Dioxide 21 L (22-29) mmol/L Anion Gap 15 (12-20) BUN 21 H (9-16) mg/dL Creatinine 1.10 (0.5-1.4) mg/dL Estim Creat Clear Calc 99.8 Estimated GFR > 60 Random Glucose 128 H (60-115) mg/dL Calcium 9.6 (8.4-10.2) mg/dL Total Bilirubin 0.5 (0.0-1.0) mg/dL AST 13 (5-37) U/L ALT 13 (0-40) U/L Alkaline Phosphatase 68 (39-117) U/L Troponin I High Sens (<3.5-35.0) ng/L B-Natriuretic Peptide (<100) pg/mL Total Protein 7.1 (6.5-8.0) g/dL Albumin 3.9 (3.5-5.0) g/dL TSH 0.93 (0.32-4.0) uIU/mL 02/06/23 02/06/23 Range/Units 11:46 11:46 WBC (4.8-10.8) X10*3/uL RBC (4.60-5.80) X10*6/uL Hgb (14.0-18.0) g/dl Hct (42.0-52.0) % MCV (80.0-98.0) fL MCH (27.0-33.0) pg MCHC (31.0-36.0) g/dl RDW (11.0-16.0) % Plt Count (160-400) X10*3/uL MPV (9.4-12.4) fL Immature Gran % (Auto) (0.0-0.4) % Neut % (Auto) (45-73) % Lymph % (Auto) (20-40) % [place] % (Auto) (2-11) % Eos % (Auto) (0-4) % Baso % (Auto) (0-2) % Lymph # (Auto) (1.2-4.9) X10*3/uL [place] # (Auto) (0.1-1.2) X10*3/uL Eos # (Auto) (0.0-0.4) X10*3/uL Baso # (Auto) (0.0-0.2) X10*3/uL Abs Immat Gran (auto) (0.00-0.03) X10*3/uL Absolute Neuts (auto) (2.0-8.3) x10*3/uL Absolute Nucleated RBC (0.0-0.012) X10*3/uL Nucleated RBC % (auto) (0.0-0.2) /100WBC PT (11.1-13.3) SEC INR (0.9-1.1) APTT (26.0-36.4) SEC Sodium (135-145) mmol/L Potassium (3.3-5.1) mmol/L Chloride (96-108) mmol/L Carbon Dioxide (22-29) mmol/L Anion Gap (12-20) BUN (9-16) mg/dL Creatinine (0.5-1.4) mg/dL Estim Creat Clear Calc Estimated GFR Random Glucose (60-115) mg/dL Calcium (8.4-10.2) mg/dL Total Bilirubin (0.0-1.0) mg/dL AST (5-37) U/L ALT (0-40) U/L Alkaline Phosphatase (39-117) U/L Troponin I High Sens 4.2 (<3.5-35.0) ng/L B-Natriuretic Peptide 78 (<100) pg/mL Total Protein (6.5-8.0) g/dL Albumin (3.5-5.0) g/dL TSH (0.32-4.0) uIU/mL Independent Interpretation I performed an independent interpretation of an: EKG Interpretation: My independent interpretation patient's 12 EKG done at 0955 is as follows: Atrial fibrillation with a rapid ventricular response of 117, normal QRS and QTC duration, no ST segment elevation, no ST segment depression, no PVCs, compared to EKG dated 12/23/2018 the atrial fibrillation is new. Independent Historian Clinical information obtained from an independent historian. History obtained from or confirmed by: Other (Daughter) External Record Review External record reviewed: Office record Chronic Conditions Patient?s care impacted by: Hypertension Discharge Plan Discharge Patient Disposition: Admitted As Inpatient Prescriptions: No Action trazodone 50 mg tablet 50 mg PO BEDTIME PRN (Reason: sleep) 90 Days Qty: 90 1RF (DME) blood pressure monitor [Blood Pressure Kit] Kit See Rx Instructions .Route Qty: 1 0RF Rx Instructions: As directed metoprolol tartrate 50 mg tablet 50 mg PO BID 90 Days Qty: 180 3RF losartan 100 mg tablet 100 mg PO DAILY 90 Days Qty: 90 3RF Xarelto 20 mg tablet 20 mg PO DAILY 90 Days Qty: 90 3RF cholecalciferol (vitamin D3) 50 mcg (2,000 unit) capsule 50 mcg PO DAILY 90 Days Qty: 90 1RF docusate sodium 100 mg capsule 100 mg PO DAILY PRN (Reason: for constipation) Qty: 30 4RF rosuvastatin 5 mg tablet 5 mg PO DAILY 90 Days Qty: 90 1RF (DME) CPAP Machine/Device Device See Rx Instructions .ROUTE .MEDSUPPLY Qty: 1 Rx Instructions: As directed Flovent HFA 44 mcg/actuation HFA aerosol inhaler 1 - 2 puff PO BID Qty: 31.8 2RF azelastine 137 mcg (0.1 %) aerosol,spray 2 spray intranasal BID 30 Days Qty: 30 3RF Rx Instructions: administer into each nostril after Flonase. famotidine [Pepcid] 40 mg tablet 40 mg PO BEDTIME 30 Days Qty: 30 6RF omeprazole 40 mg capsule,delayed release(DR/EC) 40 mg PO DAILY 30 Days Qty: 30 6RF sennosides [senna] 8.6 mg tablet 17.2 mg PO BEDTIME PRN (Reason: for constipation) Qty: 60 3RF (DME) cock up slint See Rx Instructions .Route .MEDSUPPLY Qty: 2 0RF Rx Instructions: wear on each wrist at night
[2023-02-06 11:57] LABS: MANUAL DIFF FLAG NO
[2023-02-06 11:59] LABS: Basophils Absolute Auto 0.1 X10*3/uL (0.0-0.2); Basophils Percent Auto 0.5 % (0-2); Eosinophils Absolute Auto 0.1 X10*3/uL (0.0-0.4); Hematocrit 45.6 % (42.0-52.0); Hemoglobin 14.9 g/dl (14.0-18.0); Imm Gran Abs Auto 0.03 X10*3/uL (0.00-0.03); Imm Gran Pct Auto 0.3 % (0.0-0.4); Lymphocytes Absolute Auto 2.3 X10*3/uL (1.2-4.9); Lymphocytes Percent Auto 23.1 % (20-40); Mean Corpuscular HGB Conc 32.7 g/dl (31.0-36.0); Mean Corpuscular Hemoglobin 29.6 pg (27.0-33.0); Mean Corpuscular Volume 90.7 fL (80.0-98.0); Mean Platelet Volume 10.4 fL (9.4-12.4); Monocytes Absolute Auto 0.8 X10*3/uL (0.1-1.2); Monocytes Percent Auto 7.7 % (2-11); Neutrophils Absolute Auto 6.6 x10*3/uL (2.0-8.3); Neutrophils Percent Auto 67.4 % (45-73); Platelet Count 175 X10*3/uL (160-400); Red Blood Count 5.03 X10*6/uL (4.60-5.80); Red Cell Distribution Width 13.3 % (11.0-16.0); White Blood Count 9.8 X10*3/uL (4.8-10.8)
[2023-02-06 12:04] LABS: INTERNATIONAL NORM RATIO 1.5 (0.9-1.1)
[2023-02-06 12:07] LABS: Partial Thromboplastin Time 31.4 SEC (26.0-36.4)
[2023-02-06 12:20] LABS: B Type Natriuretic Peptide 78 pg/mL (<100)
[2023-02-06 12:22] LABS: Alanine Aminotransferase 13 U/L (0-40); Albumin Level 3.9 g/dL (3.5-5.0); Alkaline Phosphatase 68 U/L (39-117); Anion Gap 15 (12-20); Aspartate Amino Transferase 13 U/L (5-37); Bilirubin Total 0.5 mg/dL (0.0-1.0); Blood Urea Nitrogen 21 mg/dL (9-16); Calcium 9.6 mg/dL (8.4-10.2); Carbon Dioxide 21 mmol/L (22-29); Chloride 108 mmol/L (96-108); Creatinine Clr Calc Pharmacy 99.8; Estimated Glomerular Filt Rate > 60; Glucose Random 128 mg/dL (60-115); Potassium 3.8 mmol/L (3.3-5.1); Sodium 140 mmol/L (135-145); Total Protein 7.1 g/dL (6.5-8.0)
[2023-02-06 13:02] LABS: TSH reflex Free T4 0.93 uIU/mL (0.32-4.0)
[2023-02-06 13:11] LABS: Troponin-I High Sensitivity 4.2 ng/L (<3.5-35.0)
[2023-02-06 14:02] VITALS: BP 128/76; PULSE 94; RESP 22; O2SAT 97
[2023-02-06 15:29] LABS: COVID-19 Test Negative (Negative); IDNOW Serial# 9DB6401D
--- NOTE | 2023-02-06 15:33 | PHA.MEDREC ---
Pharmacy Consult ? Medication Reconciliation Pharmacy has completed the medication reconciliation. Patient and daughter confirmed all medicaitons. Karina Brothers, ArvinD
== END 2023-02-06 17:32 | disposition home or self-care (01) ==
PROVIDERS: Emergency Provider Emergency Medicine Emergency Medical Services; PCP Internal Medicine
DX: I49.9 Cardiac arrhythmia, unspecified (principal); R00.2 Palpitations; R06.02 Shortness of breath; Z79.899 Other long term (current) drug therapy; Z20.828 Contact with and (suspected) exposure to other viral communicable diseases; Z20.822 Contact with and (suspected) exposure to COVID-19
CPT/HCPCS: 80053; 83880; 84443; 84484; 85025; 85610; 85730; 87635; 93005; 99284; 99285

== ENCOUNTER 2023-02-12 10:50 | Day surgery (SDC) | payer OTHER, MEDICAID, SELFPAY ==
[2023-02-12 11:56] VITALS: BP 141/76; PULSE 78; RESP 18; TEMP 36.2; O2SAT 98; BMI 45.5
--- NOTE | 2023-02-12 12:06 | HO.ANESPROP2 ---
[facility] Active Problems Active Problems: All Active Problems (Updated 02/07/23 @ 00:00 by Phil Chapa) Right cervical radiculopathy (Acute) Carpal tunnel syndrome of right wrist (Acute) Numbness and tingling in both hands (Acute) Bilateral shoulder pain (Acute) Osteoarthritis of knees, bilateral (Acute) Dysuria (Acute) Abdominal aortic aneurysm (Acute) Former smoker (Acute) Right knee pain (Acute) Hypovitaminosis D (Acute) Physical exam (Acute) Chronic anticoagulation (Acute) Morbid obesity (Acute) Colon cancer screening (Acute) Shortness of breath (Acute) Paroxysmal atrial fibrillation (Acute) History of cardiomyopathy (Acute) HTN (hypertension) (Acute) Obstructive sleep apnea (Acute) Primary osteoarthritis involving multiple joints (Acute) Mild asthma (Acute) Peptic ulcer disease (Acute) IBS (irritable bowel syndrome) (Acute) GERD (gastroesophageal reflux disease) (Acute) Past Medical History Medical History Chronic idiopathic constipation History of cardiomyopathy HTN (hypertension) Mild asthma Obstructive sleep apnea Paroxysmal atrial fibrillation Physical exam Primary osteoarthritis involving multiple joints Shortness of breath Family History Family History Mother Diabetes High blood pressure Heart attack Heart problem Father Diabetes Stomach problems Brother Diabetes High blood pressure Stomach problems Paternal Grandmother Lung cancer Sister Cancer Stomach problems Maternal Grandfather Heart problem Maternal Grandmother Heart problem Family/Other Substance use disorder Family history of problems with anesthesia: No Surgical History Surgical History History of cholecystectomy History of esophagogastroduodenoscopy (EGD) History of Problems with Anesthesia: No Social History Social History Household Members: Children Housing: Apartment Alcohol intake: never Patient Tobacco Use Status: Former Tobacco user Tobacco use type: Cigarette Cigarettes Per Day: 4 Years Smoked: 10 e-Cigarette/Vaping Use: Never Used Second Hand Smoke Exposure: No service: No Current occupational status: disabled Cognitive needs: Yes Hearing needs: No Vision needs: Yes Meds Allergies Allergy/AdvReac Type Severity Reaction Status Date / Time No Known Allergies Allergy Verified 01/24/23 09:49 Active Medications: Current Medications Lactated Ringer's (Lr) 1,000 mls @ 100 mls/hr IVCONT .Q10H JUAN Home Medications Medication Instructions Recorded Confirmed Last Taken Type CPAP (CPAP Machine/Device) #1 ea 10/31/20 11/05/22 Unknown History famotidine 40 mg tablet (Pepcid) 40 mg PO DAILY 02/06/23 02/12/23 02/12/23 History fluticasone propionate 44 1 - 2 puff PO BID PRN Allergy 02/06/23 02/12/23 Unknown History mcg/actuation HFA aerosol inhaler Symptoms (Flovent HFA) metoprolol tartrate 50 mg tablet 50 mg PO BID@0900,1730 02/06/23 02/12/23 02/12/23 History rosuvastatin 5 mg tablet 5 mg PO DAILY@1730 02/06/23 02/12/23 02/12/23 History Exam Exam Date and Time: February 12, 2023 1206 Height,Weight and Vital Signs: Height 5 ft 11 in Weight 147.871 kg Last Vital Signs Temp 97.2 F 02/12/23 11:56 Pulse 78 02/12/23 11:56 Resp 18 02/12/23 11:56 BP 141/76 H 02/12/23 11:56 Pulse Ox 98 02/12/23 11:56 O2 Del Method Room Air 02/12/23 11:56 Airway Mallampati Class: III TM Dist: >3cm Neck ROM: Full Partial: Lower Heart: irreg Lungs: cta Assessment and Plan Assessment Anesthesia Assessment: Anesthesia Plan Discussed and Chart Reviewed Final Anesthetic Review Family History of Problems with Anesthesia: No History of Problems with Anesthesia: No NPO: Yes ASA Class: III Final Preanesthetic Review: No Changes in Pt Med Stat, Meds/Allgs Chart Reviewed and Consent Obtained/Reviewed Patient Risk: Intermediate Procedure Risk: Intermediate Anesthetic Plan Anesthetic Plan: MAC: Disposition: Standard PACU
[2023-02-12] MEDS: Lactated Ringers 1,000 ML 100 ML IVCONT (12:45)
--- NOTE | 2023-02-12 13:05 | MHC.SHP ---
Pre-Procedural Eval Section A Date of Service: 02/12/23 Section B Chief Complaint: Persistent atrial fibrillation Details of Present Illness: Patient present with recurrent atrial fibrillation recently noted by EKG. Patient denies any symptoms at onset atrial fibrillation. However heart rate was difficult control. He was seen in the emergency room and then discharged with increased rate control medication and brought to the hospital with plan for synchronized cardioversion to resume normal sinus rhythm. Patient has been taking his oral anticoagulation regularly. Relevant Family History (Specify if Yes): No Relevant Social History: Other (specify) Present Medications: see Short Stay Collaborative assessment Medical History: Significant History (Prior history of atrial fibrillation persistent with heart failure symptoms and cardiomyopathy improved with rhythm control) History of Previous Operations: Relevant previous surgery/procedure and date(s) (Cardioversion) Allergies: Allergies Allergy/AdvReac Type Severity Reaction Status Date / Time No Known Allergies Allergy Verified 01/24/23 09:49 Review of Systems Sugical H&P ROS: Negative: Constitution, Respiratory, Neurological, Psychiatric, Hem-Onc, Allergic/Immunologic, Gastrointestinal and Eyes/Ears/Nose/Throat and Yes, Specify: Cardiovascular (Shortness of breath) Exam Surgical H&P Exam: Normal: HEENT, Normal: Lungs, Normal: Extremities, Normal: Abdomen, Normal: Skin and Normal: Neurological and Significant Findings: Heart (Irregularly irregular rhythm) Plan Diagnosis/Plan: Unchanged I have reviewed the history and physical and performed a pertinent physical examination on my patient. No changes have occurred unless specified. Plan to proceed with synchronized cardioversion to his room sinus rhythm. Time Spent With Patient Time: Total time managing care of this patient today ____ minutes.
--- NOTE | 2023-02-12 13:29 | ECG_ITS ---
Test Reason : postop Blood Pressure : / mmHG Vent. Rate : 059 BPM Atrial Rate : 059 BPM P-R Int : 182 ms QRS Dur : 092 ms QT Int : 424 ms P-R-T Axes : 027 047 059 degrees QTc Int : 419 ms Sinus bradycardia with sinus arrhythmia Otherwise normal ECG When compared with ECG of 06-FEB-2023 09:55, Sinus rhythm has replaced Atrial fibrillation Vent. rate has decreased BY 58 BPM T wave inversion no longer evident in Inferior leads Nonspecific T wave abnormality no longer evident in Anterolateral leads Referred By: Christiano Reyes Electronically Signed By:LEONARD ELENA
[2023-02-12 13:38] VITALS: BP 119/67; PULSE 55; RESP 16; TEMP 36.4; O2SAT 98
--- NOTE | 2023-02-12 13:47 | P.PNCAR_ITS ---
Cardioversion Procedure Note Cardioversion Date of Procedure: Today Ordering Provider: Myself Performing Provider: Myself Indication for Procedure: Recurrent and persistent atrial fibrillation with difficult control rate Pre-Op Diagnosis: Same Post-Op Diagnosis: Normal sinus rhythm Performed with Transesophageal Echo: No History: See the preprocedural evaluation Consent: Verbal and Written consent was obtained from the patient before starting the procedure and confirming oral anticoagulation use. The patient was made aware of the risk of synchronized cardioversion including benefits and alternatives Procedure: After consent obtained, cardioversion pads were attached in anteroposterior co nfiguration and the patient was sedated by the anesthesia team. Once adequate sedation achieved, patient was delivered 200 joules of biphasic synchronized energy in anteroposterior configuration Complications: None Impression: Successful conversion to sinus rhythm Recommendations: 1. 12 lead EKG 2. Start Multaq 400 mg b.i.d. to maintain rhythm and reduce metoprolol to 25 mg b.i.d. 3. Continue full oral anticoagulation with Xarelto 4. Follow up in the clinic after Holter monitor
[2023-02-12 13:53] VITALS: BP 125/73; PULSE 71; RESP 16; O2SAT 97
[2023-02-12 14:08] VITALS: BP 107/70; PULSE 58; RESP 16; TEMP 36.4; O2SAT 97
== END 2023-02-12 14:30 | disposition home or self-care (01) ==
PROVIDERS: PCP Internal Medicine; Visit Provider Internal Medicine Cardiovascular Disease
PROC: 5A2204Z Restoration of Cardiac Rhythm, Single (ICD-10-PCS; principal; 2023-02-12 13:00)
DX: I48.19 Other persistent atrial fibrillation (principal); I10 Essential (primary) hypertension; J45.909 Unspecified asthma, uncomplicated; G47.33 Obstructive sleep apnea (adult) (pediatric); Z79.01 Long term (current) use of anticoagulants; Z79.51 Long term (current) use of inhaled steroids; Z79.899 Other long term (current) drug therapy; Z99.89 Dependence on other enabling machines and devices; Z87.891 Personal history of nicotine dependence
CPT/HCPCS: 92960; 93005

== ENCOUNTER → 2023-02-12 10:50 | Outpatient (BNV) | payer OTHER, MEDICAID, SELFPAY | PROVIDERS: PCP Internal Medicine; Visit Provider Internal Medicine Cardiovascular Disease | DX: I48.19 Other persistent atrial fibrillation (principal) | CPT/HCPCS: 92960 ==

== ENCOUNTER 2023-03-11 10:40 | Outpatient (AMB) | payer OTHER, MEDICAID, SELFPAY ==
--- NOTE | 2023-03-11 10:43 | A.OFFPC_ITS ---
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 Required: No Accompanied by: Self / Same As Patient Allergies No Known Allergies Allergy (Verified 03/11/23 11:03) Medication List - Last Reconciled 03/11/23 by Sulma Brock MD blood pressure monitor (Blood Pressure Kit) As directed cholecalciferol (vitamin D3) 50 mcg PO DAILY 90 days [cock up slint wear on each wrist at night ] CPAP (CPAP Machine/Device) As directed docusate sodium 100 mg PO DAILY PRN dronedarone (Multaq) 400 mg PO Q12H famotidine (Pepcid) 40 mg PO DAILY fluticasone propionate 44 mcg/actuation (Flovent HFA) 1 - 2 puffs PO BID PRN losartan 100 mg PO DAILY 90 days metoprolol tartrate 25 mg PO Q12H omeprazole 40 mg PO DAILY 30 days rivaroxaban (Xarelto) 20 mg PO DAILY 90 days rosuvastatin 5 mg PO DAILY@1730 90 days sennosides (senna) 17.2 mg (2 x 8.6 mg) PO BEDTIME PRN trazodone 50 mg PO BEDTIME PRN 90 days Tobacco use date assessed: 08/13/22 Fall risk assessment: No Falls in past year Last assessed Fall Risk: 03/11/23 Dental Screening Dental Screen Date: 03/11/23 Did you have a dental visit in the last 12 months?: No Did you have a dental problem in the last 6 months where you did not have access to dental care?: No Was dental information given to patient?: Patient has dentist HPI HPI Comments History of Present Illness Details This is a 67-year-old male with paroxysmal atrial fibrillation, hypertension, chronic idiopathic constipation, dyslipidemia and morbid obesity that comes today for follow-up on his conditions. Walks with a cane for gait stability. Had an episode of atrial fibrillation this month and was added Multaq. Follow by cardiology. Blood pressure stable. Constipation stable with medications as needed. Lipid panel will be order and is compliant with statins. He is morbidly obese with a BMI of 46.2 and declines weight loss surgery. Advised to do diet and exercise as tolerated to reach BMI goal less than 30. Use CPAP machine for his obstructive sleep apnea and feels markedly rested aft er. Complains of bilateral wrist pain and will benefit from a wrist brace. [facility] Medical History (Updated 03/11/23 @ 11:34 by Sulma Brock MD) Chronic idiopathic constipation History of cardiomyopathy HTN (hypertension) Mild asthma Obstructive sleep apnea Paroxysmal atrial fibrillation Physical exam Primary osteoarthritis involving multiple joints Shortness of breath Surgical History History of cardioversion History of cholecystectomy History of esophagogastroduodenoscopy (EGD) Family History Mother Diabetes High blood pressure Heart attack Heart problem Father Diabetes Stomach problems Brother Diabetes High blood pressure Stomach problems Paternal Grandmother Lung cancer Sister Cancer Stomach problems Maternal Grandfather Heart problem Maternal Grandmother Heart problem Family/Other Substance use disorder Social History Household Members: Children Housing: Apartment Alcohol intake: never Patient Tobacco Use Status: Former Tobacco user Tobacco use type: Cigarette Cigarettes Per Day: 4 Years Smoked: 10 e-Cigarette/Vaping Use: Never Used Second Hand Smoke Exposure: No service: No Current occupational status: disabled Cognitive needs: Yes Hearing needs: No Vision needs: Yes Questionnaire Thrive Questionnaire Date Thrive assessed: 08/13/22 CHALO-7 AMB Questionnaire CHALO-7 Date CHALO - 7 assessed: 08/13/22 Source: Developed by Drs. Trenton Saenz, Antonette Fraser, Malcolm Dias and colleagues, with an educational andi from [employer]. Review of Systems Const All systems reviewed & are unremarkable except as noted in HPI and below Eyes Reports no additional complaints, Denies change in vision and Denies other visual disturbances Card Denies chest pain at rest, Denies chest pain with activity, Denies edema, Denies irregular heart rhythm, Denies claudication, Denies dyspnea, Denies dyspnea on exertion, Denies orthopnea, Denies paroxysmal nocturnal dyspnea and Denies slow heart rate Resp Denies cough, Denies dyspnea and Denies dyspnea on exertion GI Denies abdominal pain, Denies change in bowel habits, Denies excessive flatus, Denies nausea and Denies vomiting Denies urinary hesitancy, Denies urinary incontinence and Denies urinary urgency Musc Denies abnormal gait, Denies atrophy, Denies deformity and Denies limited range of motion Skin/Breast Denies bleeding lesions, Denies changing lesions and Denies rash Neuro Denies abnormal gait and Denies lack of coordination Physical exam (Primary Care) Vital Signs: Last Vital Signs BP 134/80 03/11/23 10:44 BMI result Body Mass Index 46.2 Tobacco/Smoking Status: Tobacco use Status Tobacco use date assessed 08/13/22 03/11/23 10:51 Patient Tobacco Use Status Former Tobacco user 03/11/23 10:51 Tobacco use type Cigarette 03/11/23 10:51 e-Cigarette/Vaping Use Never Used 03/11/23 10:51 Thrive Assessment: Date of Thrive Assessment Date Thrive assessed 08/13/22 03/11/23 10:51 Const Limitations: ambulation with cane Eyes General: appearance normal, both eyes and all related structures Eyelids: Yes eyelids normal Conjunctivae: conjunctivae normal Neck Neck: Yes normal visual inspection and Yes supple Resp Effort & Inspection: normal respiratory effort Auscultation: clear to auscultation bilaterally Cardio Jugular venous distension: no JVD Rate: regular rate Rhythm: regular rhythm Heart sounds: S1 normal heart sound present and S2 normal heart sound present Extrem General: Yes full ROM Assessment and Plan Assessment & Plan (1) Paroxysmal atrial fibrillation: Code(s): I48.0 - Paroxysmal atrial fibrillation Plan: Continue metoprolol, Xarelto and Multaq. Follow-up with Cardiology. The goal is heart rate control. (2) Morbid obesity: Code(s): E66.01 - Morbid (severe) obesity due to excess calories Plan: Patient declines weight loss surgery. BMI goal is less than 30. Advised to follow diet and exercise. (3) Dyslipidemia: Code(s): E78.5 - Hyperlipidemia, unspecified Plan: Continue statins. Repeat lipid panel. (4) Chronic idiopathic constipation: Code(s): K59.04 - Chronic idiopathic constipation Plan: Continue docusate and MiraLax as needed. (5) HTN (hypertension): Code(s): I10 - Essential (primary) hypertension Qualifiers: Hypertension type: essential hypertension Qualified Code(s): I10 - Essential (primary) hypertension Plan: Continue losartan. Blood pressure goal is equal or less than 130/80. Orders: Orders Comprehensive [place]. Panel Fast 4 Months I48.0 - Paroxysmal atrial fibrillation Lipid Panel 4 Months E78.5 - Hyperlipidemia, unspecified Vitamin D 25-OH Total 4 Months E55.9 - Vitamin D deficiency, unspecified Medications: New arm brace (Wrist Support Large-XLarge) As directed 2 ea 0RF R20.0 - Anesthesia of skin, R20.2 - Paresthesia of skin Discontinued rosuvastatin 5 mg PO DAILY 90 days 90 tabs 1RF fluticasone propionate 44 mcg/actuation 1 - 2 puffs PO BID 31.8 caps 2RF metoprolol tartrate 50 mg PO BID 90 days 180 caps 3RF famotidine 40 mg PO BEDTIME 30 days 30 tabs 6RF K21.9 - Gastro-esophageal reflux disease without esophagitis Coding Level of Care Code Est Pt Level 4 (84984) Diagnoses Paroxysmal atrial fibrillation I48.0 Morbid obesity E66.01 Dyslipidemia E78.5 Chronic idiopathic constipation K59.04 HTN (hypertension) I10 Hypertension type: essential hypertension Time Spent (min) 25
[2023-03-11 10:44] VITALS: BP 134/80; BMI 46.2
== END 2023-03-11 11:11 | disposition home or self-care (01) ==
PROVIDERS: PCP Internal Medicine; Visit Provider Internal Medicine
DX: I48.0 Paroxysmal atrial fibrillation (principal); E66.01 Morbid (severe) obesity due to excess calories; I10 Essential (primary) hypertension; Z68.42 Body mass index [BMI] 45.0-49.9, adult; E78.5 Hyperlipidemia, unspecified; K59.04 Chronic idiopathic constipation
CPT/HCPCS: 99214

== ENCOUNTER → 2023-04-11 09:41 | Outpatient (REF) | payer OTHER, MEDICAID, SELFPAY ==
--- NOTE | 2023-04-11 09:43 | CA_ITS ---
Transthoracic Echocardiogram Patient (Last, First, Middle): Vaughn Antonio, Gender: Male Date of : 1955 Age: 67 Procedure Date: 04/11/2023 Procedure Type: Transthoracic Echocardiogram Location: OP Height: 177.8 cm Weight: 156.49 kg BSA: 2.63 m2 Heart Rate: 52 bpm BP: 128 / 72 mmHg Business Division Chair: SHAILESH Referring MD: Christiano Reyes MD Buckle Gluer: Christiano Reyes MD Symptoms: I48.0 - Paroxysmal atrial fibrillation Study Quality: Adequate w contrast ECG Rhythm: Sinus Bradycardia Conclusions: - 1. Normal LV ejection fraction with mild LVH with LVEF of 55 60% with suggestion of elevated filling pressures 2. Normal cardiac valvular Doppler 3. Normal RV systolic pressure 4. No gross pericardial effusion Findings Procedure Information Contrast agent, definity, is being given per protocol without apparent complications. Left Ventricle Normal left ventricular size and systolic function. There is mildly increased left ventricular wall thickness. The visually estimated ejection fraction is between 55-60%. Spectral Doppler is indicative of an impaired relaxation filling pattern. Elevated filling pressures. E/E prime ratio is >15, consistent with elevated filling pressures. Right Ventricle The right ventricle was not well visualized. Atria The left atrium is likely dilated. Interatrial shunt cannot be excluded. The right atrium was not well visualized. Aortic Valve The aortic valve was not well visualized. There is no aortic valve stenosis. There is no aortic valve regurgitation. Mitral Valve Likely normal mitral valve structure and function. There is trace mitral valve regurgitation. There is no mitral valve stenosis. Pulmonic Valve The pulmonic valve was not well visualized. Tricuspid Valve Likely normal tricuspid valve structure and function. There is trace tricuspid valve regurgitation. The right ventricular systolic pressure is normal. The right ventricular systolic pressure is 23 mmHg. Normal right atrial pressure. There is no evidence of pulmonary hypertension. Great Vessels All visible segments of the aorta are normal in size. The pulmonary artery was not well visualized. There is no dilatation of the ascending aorta. Venous The inferior vena cava is normal in size and collapses greater than 50% with inspiration. Pericardium/Pleural There is no evidence of pericardial effusion. Prior Study Comparison No significant change compared to prior study dated: 01/11/2022. Measurements 2D Linear Measurements IVSd: 1.30 0.6-0.9/0.6-1.0 cm LVIDd: 5.40 3.9-5.3/4.2-5.9 cm LVIDd Index: 2.05 2.4-3.2/2.2-3.1 cm/m2 LVIDs: 3.90 2.0-3.6 cm LVPWd: 1.10 0.7-1.1 cm LA Diam: 3.90 2.7-3.8/3.0-4.0 cm LAIDs Index: 1.48 1.5-2.3 cm/m2 LV Mass: 329.77 67-162/88-224 g LV Mass Index: 125.39 43-95/49-115 g/m2 LVOT Diam: 2.20 3.0+(-)1.3 cm 2D Systolic Function EF 4C: 61.70 >55% EF 2C: 53.60 >55% EF BiP: 56.70 >55% Mitral Valve MV Pk E: 0.71 MV PK A: 0.82 MV Decel Time: 234.00 E/A: 0.90 E'Lateral: 4.22 E'Medial: 4.35 E/E' Med: 16.30 E/E' Lat: 16.80 PHT: 68.00 MVA PHT: 3.24 Decel Nicholas: 3.03 Aortic Valve AoV Pk Niko: 1.58 AoV Pk Grad: 10.00 DARNELL: 2.35 LVOT LVOT Pk Niko: 0.97 LVOT Mn Niko: 0.62 LVOT VTI: 0.18 LVOT Pk Grad: 4.00 LVOT Mn Grad: 2.00 LVOT Diam: 2.20 LVOT Area: 3.80 Diastolic Function MV Pk E: 0.71 MV Pk A: 0.82 E/A: 0.90 E'Medial: 4.35 E/E' Med: 16.30 E' Laterial: 4.22 E/E' Lat: 16.80 Right Ventricle TAPSE (mm): 18.30 TVS' Niko: 12.30 Tricuspid Valve TR Pk Niko: 2.22 TR Pk Grad: 20.00 RA Press: 3.00 RVSP: 23.00 Great Vessels Aorta Sinus of Valsalva: 3.10 2.0-3.5 cm Ao Asc: 3.20 2.1-3.4 cm Pulmonary Valve PV Pk Niko: 1.10 Peak PV Grad: 5.00 Updated in Other Vendor System with Status of Final Christiano Reyes MD electronically signed on 04/11/2023 2:57:07 PM with status of Final
== END ==
LOC: HO.CARD 09:41
PROVIDERS: PCP Internal Medicine; Visit Provider Internal Medicine Cardiovascular Disease
DX: I48.0 Paroxysmal atrial fibrillation (principal)
CPT/HCPCS: 93306; 93356; Q9957

== ENCOUNTER → 2023-04-11 09:43 | Outpatient (BNV) | payer OTHER, MEDICAID, SELFPAY | PROVIDERS: PCP Internal Medicine; Visit Provider Internal Medicine Cardiovascular Disease | DX: I48.0 Paroxysmal atrial fibrillation (principal) | CPT/HCPCS: 93306 ==

== ENCOUNTER 2023-08-06 10:31 | Outpatient (AMB) | payer OTHER, MEDICAID, SELFPAY ==
--- NOTE | 2023-08-06 10:55 | A.OFFVIS_ITS ---
Intake Vital Signs 08/06/23 11:45 Height 5 ft 11 in Weight 331 lb BMI 46.2 BP 124/78 Blood Pressure Location Lt brachial Position Sitting Respiration 17 Pulse 68 Pulse Source Palpation Intake Visit Reasons: 1 yr follow up appt - Conf Intake Note: Pt presents to the office for a one year follow up for LETICIA. Route Salesperson Required: No Allergies No Known Allergies Allergy (Verified 08/06/23 11:44) HPI HPI Comments History of Present Illness Details 66-yr-old male presents for follow-up vi sit. Pt reports he has not received supplies for year. His insurance changed and need to change his home care company. Patient is using his CPAP nightly with good effect.? He is able to sleep better with CPAP. Pt reports daytime tiredness has improved. CPAP compliance report reveals CPAP- 15 cmH2O; overall usage of 100 % with usage > 4 hours of 100 %; average usage on days used 7 hours 27 minutes; and residual AHI of 1.1/hr. ? [facility] Medical History (Updated 08/07/23 @ 10:42 by [facility] Physical exam Shortness of breath History of cardiomyopathy Obstructive sleep apnea HTN (hypertension) Paroxysmal atrial fibrillation Primary osteoarthritis involving multiple joints Mild asthma Chronic idiopathic constipation Surgical History History of cardioversion History of esophagogastroduodenoscopy (EGD) History of cholecystectomy Family History Mother Diabetes High blood pressure Heart attack Heart problem Father Diabetes Stomach problems Brother Diabetes High blood pressure Stomach problems Paternal Grandmother Lung cancer Sister Cancer Stomach problems Maternal Grandfather Heart problem Maternal Grandmother Heart problem Family/Other Substance use disorder Social History Household Members: Children Housing: Apartment Alcohol intake: never Patient Tobacco Use Status: Former Tobacco user Tobacco use type: Cigarette Cigarettes Per Day: 4 Years Smoked: 10 e-Cigarette/Vaping Use: Never Used Second Hand Smoke Exposure: No service: No Current occupational status: disabled Cognitive needs: Yes Hearing needs: No Vision needs: Yes Review of Systems Const All systems reviewed & are unremarkable except as noted in HPI and below Physical Exam Vital Signs: Last Vital Signs Pulse 68 08/06/23 11:45 Resp 17 08/06/23 11:45 BP 124/78 08/06/23 11:45 BMI result Body Mass Index 46.2 Const General: no acute distress Orientation/consciousness: patient oriented x3 HEENT Head: Yes normocephalic Resp Effort & Inspection: normal respiratory effort and able to speak in complete sentences Auscultation: clear to auscultation bilaterally Cardio Rate: regular rate Rhythm: regular rhythm Neuro General: patient oriented x3 Psych Mental Status: mental status grossly normal Speech and movement: Clear speech present Attitude: cooperative Assessment & Plan Assessment & Plan (1) Obstructive sleep apnea: Code(s): G47.33 - Obstructive sleep apnea (adult) (pediatric) Plan Continue CPAP 15 cmH2O nightly > 4 hours, as pt is tolerating CPAP better and is having good clinical effect from use. Clean CPAP machine and supplies routinely. Change CPAP supplies routinely. New CPAP supply prescription will send to [facility]. Pt to contact us or respiratory company with any questions or concerns. Coding Level of Care Code Est Pt Level 3 (54414) Diagnoses Obstructive sleep apnea G47.33
[2023-08-06 11:45] VITALS: BP 124/78; PULSE 68; RESP 17; BMI 46.2
== END 2023-08-06 12:01 | disposition home or self-care (01) ==
PROVIDERS: Visit Provider Nurse Practitioner Family
DX: G47.33 Obstructive sleep apnea (adult) (pediatric) (principal)
CPT/HCPCS: 99213

== ENCOUNTER → 2023-08-06 10:31 | Outpatient (BNVA) | payer OTHER, MEDICAID, SELFPAY | PROVIDERS: Visit Provider Nurse Practitioner Family ==

== ENCOUNTER 2023-08-07 09:27 | Outpatient (AMB) | payer OTHER, MEDICAID, SELFPAY ==
--- NOTE | 2023-08-07 09:30 | MHC.OFFVIS ---
Intake Vital Signs 08/07/23 09:32 Height 5 ft 11 in Weight 331 lb 12.731 oz BMI 46.3 BP 122/74 Blood Pressure Location Lt brachial Position Sitting Pulse 64 Pulse Source Pulse Oximeter Temp 97.7 F Temp Source Skin Pulse Oximetry (%) 97 Oxygen Delivery Method Room Air Intake Visit Reasons: osteoarthritis Intake Note: Patient presents today to follow up on OA. Needs new wrist brace scripts to be sent to [facility] Engineering Operations Leader Required: Yes Engineering Operations Leader Language: Homemaking Rehabilitation Consultant Name: Jair [id number] Information Interpreted: non-clinical & clinical Accompanied by: Self / Same As Patient Allergies No Known Allergies Allergy (Verified 08/06/23 11:44) HPI HPI Comments History of Present Illness Details Mr. Mendes is a 67yoM presents for follow-up of osteoarthritis. Last visit October 2022. He is here to see about getting the cock-up splints for the CTS. They were denied by his insurance. Prior visit: October 2022 He reports pain in his shoulders, elbows, wrists, hands and knees. He would like to address his right shoulder, elbow and hand pain. He states his shoulder pain started 3 months ago. He denies injury. He states that his pain is strong and is present with rest. He is taking tylenol with little effect. He was previously taking tramadol but it upset his stomach. He states that his fingers are numb on both hands at this time. He denies history of carpal tunnel. Pain throughout bilateral wrist and hands. Present [id number] splints and EMG nerve conduction study Pain with flexion extension unable to complete internal rotation. Tenderness over the AC joint-bilateral shoulder x-rays and physical therapy continue Tylenol Widespread diffuse tenderness to palpation shoulders arms wrists hands knees shins feet. Knees with OA on recent x-ray Continues to have low back pain unable to perform flexion or extension. Declines referral to pain management this time. Unable to take NSAIDs, tramadol caused GI upset. BP elevated in clinic today follow-up with PCP Previous serology negative GEOVANNY, negative Lyme, negative rheumatoid factor He reports continued low back pain. He states that he had an MRI of his low back years ago that showed bulging discs. He previously followed with pain management? for his back pain, a spinal stimulator was recommended however patient has declined this intervention. He states that he completed PT and had cortisone injections with [facility], but continued to have pain. He was advised to continue his medications and lose weight. Patient is on Xarelto for afib and follows with cardiology, unable to take NSAIDs due to Xarelto. [facility] Medical History (Updated 08/07/23 @ 10:42 by [facility] Physical exam Shortness of breath History of cardiomyopathy Obstructive sleep apnea HTN (hypertension) Paroxysmal atrial fibrillation Primary osteoarthritis involving multiple joints Mild asthma Chronic idiopathic constipation Surgical History History of cardioversion History of esophagogastroduodenoscopy (EGD) History of cholecystectomy Family History Mother Diabetes High blood pressure Heart attack Heart problem Father Diabetes Stomach problems Brother Diabetes High blood pressure Stomach problems Paternal Grandmother Lung cancer Sister Cancer Stomach problems Maternal Grandfather Heart problem Maternal Grandmother Heart problem Family/Other Substance use disorder Social History Household Members: Children Housing: Apartment Alcohol intake: never Patient Tobacco Use Status: Former Tobacco user Tobacco use type: Cigarette Cigarettes Per Day: 4 Years Smoked: 10 e-Cigarette/Vaping Use: Never Used Second Hand Smoke Exposure: No service: No Current occupational status: disabled Cognitive needs: Yes Hearing needs: No Vision needs: Yes Review of Systems Const All systems reviewed & are unremarkable except as noted in HPI and below Physical Exam Vital Signs: Last Vital Signs Temp 97.7 F 08/07/23 09:32 Pulse 64 08/07/23 09:32 BP 122/74 08/07/23 09:32 Pulse Ox 97 08/07/23 09:32 Oxygen Delivery Method Room Air 08/07/23 09:32 BMI result Body Mass Index 46.3 APPEARANCE: Patient in no acute distress. Obese. EYES: no redness, eyelids normal THROAT: Oral mucosa moist, no ulcerations HEART: Regular rhythm, S1-S2 heard, no murmurs, rubs or gallops. LUNG: Clear to auscultation, respiratory rate regular and non-labored. EXTREMITIES: No edema, no calf tenderness, normal peripheral pulses. NEURO: Oriented and alert x3. No focal weakness. Gait antalgic. SKIN: No inflammatory or neoplastic lesions. Normal color and turgor JOINT EXAM:?? Hands:? Normal range of motion without swelling, increased warmth or erythema. Widespread diffuse tenderness to palpation throughout the hands. Able to make a full fist and has a good drencher strength. Positive phalens test, tingling reported throughout both hands and all fingers. Wrists:? Normal range of motion without swelling, increased warmth or erythema. Widespread diffuse tenderness to palpation throughout the wrists. Elbows: Normal pain-free range of motion without swelling, increased warmth or erythema. Widespread diffuse tenderness to palpation throughout the elbows. Shoulders:?LEFT: Pain with flexion and abduction at 90 degrees. Unable to perform internal rotation. Tenderness to palpation over the AC joint. No weakness, swelling, increased warmth or erythema. RIGHT: Pain with flexion and abduction at 90 degrees. Unable to perform internal rotation. Tenderness to palpation over the AC joint. No weakness, swelling, increased warmth or erythema. Knees: LEFT: Tenderness to palpation along the medial joint line,lateral joint line, infrapatellar and prepatellar areas.? Pain with flexion and extension. No erythema, warmth or swelling noted. Widespread diffuse pain down the ames. RIGHT: Tenderness to palpation along the medial joint line, lateral joint line, infrapatellar and prepatellar areas. Pain with flexion and extension. No erythema, warmth or swelling noted. Widespread diffuse pain down the ames. Ankles: Normal pain-free range of motion without tenderness, swelling, increased warmth or erythema. Feet: Normal pain-free range of motion without swelling, increased warmth or erythema. Widespread diffuse tenderness throughout both feet. Assessment & Plan Assessment & Plan (1) Osteoarthritis of knees, bilateral: Code(s): M17.0 - Bilateral primary osteoarthritis of knee Qualifiers: Osteoarthritis type: primary Qualified Code(s): M17.0 - Bilateral primary osteoarthritis of knee Plan: Patient with pain in bilateral knees. On exam he has tenderness to palpation of the medial joint line, lateral joint line, infrapatellar and prepatellar areas bilaterally and pain with flexion and extension. X-rays with degenerative changes. Discussed referral to Orthopedics which he declines at this time. (2) Bilateral shoulder pain: Code(s): M25.511 - Pain in right shoulder; M25.512 - Pain in left shoulder Qualifiers: Chronicity: chronic Qualified Code(s): M25.511 - Pain in right shoulder; M25.512 - Pain in left shoulder; G89.29 - Other chronic pain Plan: Will update bilateral shoudler x-rays. (3) Numbness and tingling in both hands: Code(s): R20.0 - Anesthesia of skin; R20.2 - Paresthesia of skin Plan: Will trial cock-up splints at night. EMG nerve conduction study ordered. (4) Carpal tunnel syndrome of right wrist: Comment: EMG nerve conduction study 11/2022: Mild compression palsy of the right median nerve at the wrist consistent with mild carpal tunnel syndrome. Code(s): G56.01 - Carpal tunnel syndrome, right upper limb Plan #CTS/Numbness and Tingling: Gave patient RX for cock up splints. Everything else remains the same. He continues with tylenol. Prior Visit: Patient with wide spread diffuse pain throughout bilateral wrists, hands, shoulders, back, knees, ankles and feet. Numbness reported throughout both hands, positive Phalens test. Will trial cock up splints to be worn at night. EMG nerve conduction study ordered for further evaluation. Patient with bilateral shoulder pain with flexion and abduction, unable to complete internal rotation. Will obtain bilateral shoulder x-rays for further evaluation, referral placed to PT. Continues to have bilateral knee pain, recent x-rays with degenerative changes, recommended weight loss. Continues to have low back pain unable to perform flexion or extension due to pain, declines referral to pain management this time. Unable to take NSAIDs, tramadol caused GI upset. Continue tylenol. I will reach out with xray results and discuss treatment options and follow up at that time. 20 minutes spent reviewing chart, evaluating patient and documenting. Medications: Refilled [cock up slint] wear on each wrist at night 2 ea 0RF R20.0 - Anesthesia of skin, R20.2 - Paresthesia of skin Coding Level of Care Code Est Pt Level 2 (59229) Diagnoses Primary osteoarthritis of both knees M17.0 Osteoarthritis type: primary Chronic pain of both shoulders M25.511; M25.512; G89.29 Chronicity: chronic Numbness and tingling in both hands R20.0; R20.2 Carpal tunnel syndrome of right wrist G56.01
[2023-08-07 09:32] VITALS: BP 122/74; PULSE 64; TEMP 36.5; O2SAT 97; BMI 46.3
== END 2023-08-07 10:08 | disposition home or self-care (01) ==
PROVIDERS: PCP Internal Medicine; Visit Provider Nurse Practitioner Family
DX: M17.0 Bilateral primary osteoarthritis of knee (principal); M25.511 Pain in right shoulder; M25.512 Pain in left shoulder; G89.29 Other chronic pain; R20.0 Anesthesia of skin; R20.2 Paresthesia of skin; G56.01 Carpal tunnel syndrome, right upper limb
CPT/HCPCS: 99212

== ENCOUNTER → 2023-08-07 09:27 | Outpatient (BNVA) | payer OTHER, MEDICAID, SELFPAY | PROVIDERS: PCP Internal Medicine; Visit Provider Nurse Practitioner Family ==

== ENCOUNTER 2023-09-11 10:42 | Outpatient (AMB) | payer OTHER, MEDICAID, SELFPAY ==
--- NOTE | 2023-09-11 10:48 | A.OFFVIS_ITS ---
Intake Vital Signs 09/11/23 10:58 Height 5 ft 11 in Weight 335 lb 1.642 oz BMI 46.7 BP 131/70 Blood Pressure Location Lt brachial Position Sitting Pulse 55 Intake Visit Reasons: pt req appointment Intake Note: Vaughn presents in the office today in follow up of GERD and CIC. 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 Denies other GI symptoms today. Sales Operations Lead Required: Yes Sales Operations Lead Name: Daughter Accompanied by: Daughter Allergies No Known Allergies Allergy (Verified 09/11/23 11:02) HPI pt req appointment HPI Details Assessment & Plan (1) GERD (gastroesophageal reflux diseas e): Code(s): K21.9 - Gastro-esophageal reflux disease without esophagitis Qualifiers: Esophagitis presence: esophagitis presence not specified Qualified Code(s): K21.9 - Gastro-esophageal reflux disease without esophagitis Plan: Marshallese #Megan, Live He is taking the omeprazole before eating and the famotidine are controlling his GERD. BUT, his insurance is not covering his Creon (actually, $46 copay is too high for him). BUT he is not having any diarrhea now or bloating. The only new condition is a neuroma of the left hip area. This is causing him pain and gait problems, but the tx approach for now is to watch and wait given his multiple cardiac and respiratory comorbid surgical risks. He does COlogurard with this PCP and the last was last year. ROV 6 mos. (2) IBS (irritable bowel syndrome): Code(s): K58.9 - Irritable bowel syndrome without diarrhea (3) Colon cancer screening: Comment: Negative Cologuard in 2021 repeat in 3 years Code(s): Z12.11 - Encounter for screening for malignant neoplasm of colon Medications: Refilled famotidine (Pepcid ) 40 mg PO BEDTIME 30 days 30 tabs 6R F K21.9 - Gastro-eso phageal reflux dis ease without esoph agitis omeprazole 40 mg PO DAILY 30 days 30 caps 6RF sennosides (senna) 17.2 mg (2 x 8.6 m g) PO BEDTIME PRN 60 tabs 3RF for co nstipation Discontinued smumts-hkjbqwos-gm ylase 24,000-76,00 0 -120,000 unit (Bailey segal) administe r with meals and/o r snacks Discon tinued Reason: In surance Denied 1 cap PO .qid ac 30 days 120 caps 6 RF K58.9 - Irritable bowel syndrome wit hout diarrhea TODAY'S VISIT Marshallese #declines He says that his rheum d/c'd 2 meds that he felt were effecting his stomach, TRAMADOL and baclofen. Now his dyspepsia is much better with his GI meds/regimen. He is moving his bowels well as well. He has some breakthrough in the AM before eating, but this settles with eating. I also give him famotidne for this as well prn. He continues on his omeprazole and senna. ROV 6 mos. PFS Medical History Physical exam Shortness of breath History of cardiomyopathy Obstructive sleep apnea HTN (hypertension) Paroxysmal atrial fibrillation Primary osteoarthritis involving multiple joints Mild asthma Chronic idiopathic constipation Surgical History History of cardioversion History of esophagogastroduodenoscopy (EGD) History of cholecystectomy Family History Mother Diabetes High blood pressure Heart attack Heart problem Father Diabetes Stomach problems Brother Diabetes High blood pressure Stomach problems Paternal Grandmother Lung cancer Sister Cancer Stomach problems Maternal Grandfather Heart problem Maternal Grandmother Heart problem Family/Other Substance use disorder Social History Household Members: Children Housing: Apartment Alcohol intake: never Patient Tobacco Use Status: Former Tobacco user Tobacco use type: Cigarette Cigarettes Per Day: 4 Years Smoked: 10 e-Cigarette/Vaping Use: Never Used Second Hand Smoke Exposure: No service: No Current occupational status: disabled Cognitive needs: Yes Hearing needs: No Vision needs: Yes Review of Systems Const Denies fatigue, Denies fever(s), Denies night sweats, Denies poor appetite and Denies weight loss Eyes Details: glasses Reports requires corrective lenses ENT Reports Normal hearing present, Denies dental pain, Denies dysphagia, Denies hearing loss, Denies mouth pain, Denies odynophagia, Denies throat swelling, Denies tongue swelling and Reports other (Dentition adequate) Card Reports no additional complaints Resp Reports no additional complaints GI Details: Denies abdominal pain, Denies melena, Denies bloating, Denies hematochezia, Reports constipation, Denies GI cramping, Denies dysphagia, Denies excessive flatus, Denies early satiety, Reports dyspepsia, Reports heartburn, Denies diarrhea, Denies nausea, Denies odynophagia, Denies vomiting and Denies hematemesis Skin/Breast Denies pruritus, Denies lesions, Denies rash and Denies jaundice Neuro Reports Normal hearing present and Denies Abnormal speech present Endo Denies fatigue Aller/Immun Denies throat swelling and Denies tongue swelling Physical Exam Vital Signs: Last Vital Signs Pulse 55 09/11/23 10:58 BP 131/70 09/11/23 10:58 BMI result Body Mass Index 46.7 Const General: cooperative, no acute distress, well developed and well groomed Nutritional Appearance: well nourished and obese morbidly obese Orientation/consciousness: oriented to person, oriented to place and oriented to time Limitations: No language barrier and ambulation with cane HEENT Head: Yes normocephalic and Yes atraumatic Eyes General: appearance normal, both eyes and all related structures Pupils: Equal, round and reactive pupils present Neck Neck: Yes normal visual inspection and Yes no lymphadenopathy Thyroid: Thyroid normal Resp Effort & Inspection: normal respiratory effort and able to speak in complete sentences Auscultation: clear to auscultation bilaterally Cardio Rate: regular rate Rhythm: regular rhythm Heart sounds: Normal, physiologic split S2 sound present Peripheral pulses: radial pulses present and posterior tibial pulses present GI Inspection: No distended, Yes Abdominal panniculus present and Yes obesity Palpation (GI): Soft to palpation, nontender, no guarding, not rigid and No hepatosplenomegaly present Percussion: Yes normal to percussion Auscultation: normal bowel sounds Rectal Exam - Male: Yes deferred Skin General skin exam: no rashes or lesions noted, turgor normal, skin not dry, no jaundice, No spider nevi and no striae Rashes: no rashes Nails: normal Neuro General: oriented to person, oriented to place and oriented to time Cranial nerves: Yes Equal, round and reactive pupils present and Yes Normal hearing present Speech: No Abnormal speech present Extrem General: Yes normal to inspection, No clubbing, No cyanosis and No edema Psych Appearance: grossly normal and well kempt Mental Status: mental status grossly normal Speech and movement: Normal speech and movement present Affect: normal affect Attitude: cooperative Thought process: Normal thought process present and not confabulating Thought content: Normal thought content present Insight: Fair insight present (Psych) and Limited insight present (Psych) Judgement: Fair judgement present (Psych) and Limited judgement present (Psych) Assessment & Plan Assessment & Plan (1) Chronic idiopathic constipation: Code(s): K59.04 - Chronic idiopathic constipation (2) GERD (gastroesophageal reflux disease): Code(s): K21.9 - Gastro-esophageal reflux disease without esophagitis Qualifiers: Esophagitis presence: esophagitis presence not specified Qualified Code(s): K21.9 - Gastro-esophageal reflux disease without esophagitis (3) IBS (irritable bowel syndrome): Code(s): K58.9 - Irritable bowel syndrome without diarrhea (4) Peptic ulcer disease: Comment: Discovered on 2018 no H pylori patient appears to have severe chronic gastritis Code(s): K27.9 - Peptic ulcer, site unspecified, unspecified as acute or chronic, without hemorrhage or perforation Plan Marshallese #declines He says that his rheum d/c'd 2 meds that he felt were effecting his stomach, TRAMADOL and baclofen. Now his dyspepsia is much better with his GI meds/regimen. He is moving his bowels well as well. He has some breakthrough in the AM before eating, but this settles with eating. I also give him famotidne for this as well prn. He continues on his omeprazole and senna. ROV 6 mos. Medications: New famotidine (Pepcid) 40 mg PO DAILY 30 tabs 6RF Refilled omeprazole 40 mg PO DAILY 30 caps 6RF sennosides (senna) 17.2 mg (2 x 8.6 mg) PO BEDTIME PRN 60 tabs 3RF for constipation docusate sodium 100 mg PO DAILY PRN 30 caps 4RF for constipation Coding Level of Care Code Est Pt Level 3 (08406) Diagnoses Chronic idiopathic constipation K59.04 Gastroesophageal reflux disease, unspecified whether esophagitis present K21.9 Esophagitis presence: esophagitis presence not specified IBS (irritable bowel syndrome) K58.9 Peptic ulcer disease K27.9
[2023-09-11 10:58] VITALS: BP 131/70; PULSE 55; BMI 46.7
== END 2023-09-11 11:47 | disposition home or self-care (01) ==
PROVIDERS: PCP Internal Medicine; Visit Provider Nurse Practitioner
DX: K59.04 Chronic idiopathic constipation (principal); K21.9 Gastro-esophageal reflux disease without esophagitis; K58.9 Irritable bowel syndrome, unspecified; K27.9 Peptic ulcer, site unspecified, unspecified as acute or chronic, without hemorrhage or perforation
CPT/HCPCS: 99213

== ENCOUNTER → 2023-09-11 10:42 | Outpatient (BNVA) | payer OTHER, MEDICAID, SELFPAY | PROVIDERS: PCP Internal Medicine; Visit Provider Nurse Practitioner ==

== ENCOUNTER 2023-10-13 07:02 | Outpatient (REF) | payer OTHER, SELFPAY ==
[2023-10-13 08:38] LABS: Alanine Aminotransferase 14 U/L (0-40); Albumin Level 4.2 g/dL (3.5-5.0); Alkaline Phosphatase 62 U/L (39-117); Anion Gap 13 (12-20); Aspartate Amino Transferase 16 U/L (5-37); Bilirubin Total 0.7 mg/dL (0.0-1.0); Blood Urea Nitrogen 13 mg/dL (9-16); Calcium 9.6 mg/dL (8.4-10.2); Carbon Dioxide 26 mmol/L (22-29); Chloride 104 mmol/L (96-108); Cholesterol 114 mg/dL (<200); Estimated Glomerular Filt Rate 59; Glucose Fasting 98 mg/dL (60-99); HDL Cholesterol 51 mg/dL (>40); LDL Cholesterol Calculated 50 mg/dL (<100); Sodium 139 mmol/L (135-145); Total Protein 7.7 g/dL (6.5-8.0); Triglycerides 69 mg/dL (<150)
[2023-10-13 08:54] LABS: Vitamin D 25-OH Total 42.9 ng/mL (>30)
== END 2023-10-13 07:03 | disposition home or self-care (01) ==
LOC: HO.LAB 07:02
PROVIDERS: PCP Internal Medicine; Visit Provider Internal Medicine
DX: I48.0 Paroxysmal atrial fibrillation (principal); E78.5 Hyperlipidemia, unspecified; E55.9 Vitamin D deficiency, unspecified
CPT/HCPCS: 36415; 80053; 80061; 82306

== ENCOUNTER 2023-10-14 07:57 | Outpatient (REF) | payer OTHER, SELFPAY ==
--- NOTE | ~2023-10-14 | US_ITS ---
EXAMINATION: US RETROPERITONEAL LIMITED (AORTA) CLINICAL INFORMATION: Abdominal aortic aneurysm, without rupture, unspecified.. COMPARISON: Ultrasound aorta 09/04/2022. TECHNIQUE: Varghese-scale, color Doppler and spectral Doppler evaluation of the abdominal aorta. FINDINGS: Atherosclerotic plaque in the abdominal aorta. The measurements of the aorta in maximum AP and transverse dimensions respectively are as follows: Proximal: 2.9 x 2.9 cm. Mid: 2.1 x 2.6 cm. Distal: 2.3 x 3.0 cm. PSV: 91.5 cm/s. The measurements of the common iliac arteries in maximum AP and TRV dimensions are as follows: Right Common Iliac Artery: 1.3 x 2.0 cm. Left Common Iliac Artery: 1.2 x 1.8 cm. US/US abdominal aortic aneurysm IMPRESSION: Infrarenal abdominal aortic aneurysm measuring 3 x 2.3 cm, unchanged. Recommend followup every 3 years. Reference: J Am Shivam Radiol 2013; 10 (10): 789-794.
== END 2023-10-14 07:58 | disposition home or self-care (01) ==
LOC: HO.US 07:57
PROVIDERS: PCP Internal Medicine; Visit Provider Surgery Vascular Surgery
DX: I71.40 Abdominal aortic aneurysm, without rupture, unspecified (principal)
CPT/HCPCS: 76706

== ENCOUNTER 2023-10-23 09:35 | Outpatient (AMB) | payer OTHER, MEDICAID, SELFPAY ==
--- NOTE | 2023-10-23 09:44 | MHC.OFFVIS ---
Intake Vital Signs 10/23/23 09:45 Height 5 ft 11 in Weight 335 lb BMI 46.7 Intake Visit Reasons: 1 year follow up AAA s/p AAA US 10/14/23 Intake Note: 1 yr follow up AAA US 10/14/23, no complaints Accompanied by: Daughter Allergies No Known Allergies Allergy (Verified 10/23/23 09:48) HPI 1 year follow up AAA s/p AAA US 10/14/23 HPI Details Very pleasant 60-year-old gentleman presents for routine surveillance follow-up for his abdominal aortic aneurysm. Reports no interval issues. He reports that he is asymptomatic. Now reports for follow-up evaluation with ultrasound [facility] Medical History Physical exam Shortness of breath History of cardiomyopathy Obstructive sleep apnea HTN (hypertension) Paroxysmal atrial fibrillation Primary osteoarthritis involving multiple joints Mild asthma Chronic idiopathic constipation Surgical History History of cardioversion History of esophagogastroduodenoscopy (EGD) History of cholecystectomy Family History Mother Diabetes High blood pressure Heart attack Heart problem Father Diabetes Stomach problems Brother Diabetes High blood pressure Stomach problems Paternal Grandmother Lung cancer Sister Cancer Stomach problems Maternal Grandfather Heart problem Maternal Grandmother Heart problem Family/Other Substance use disorder Social History Household Members: Children Housing: Apartment Alcohol intake: never Patient Tobacco Use Status: Former Tobacco user Tobacco use type: Cigarette Cigarettes Per Day: 4 Years Smoked: 10 e-Cigarette/Vaping Use: Never Used Second Hand Smoke Exposure: No service: No Current occupational status: disabled Cognitive needs: Yes Hearing needs: No Vision needs: Yes Review of Systems Const All systems reviewed & are unremarkable except as noted in HPI and below Reports no additional complaints ENT Reports Normal hearing present Card Denies chest pain, Denies chest pain at rest, Denies chest pain with activity and Denies pedal edema Resp Denies cough GI Denies abdominal pain Musc Denies abnormal gait, Denies muscle cramps and Denies radiating pain into limb Skin/Breast Denies skin ulcer and Denies wounds Neuro Reports Normal hearing present and Denies abnormal gait Psych Reports no additional complaints Physical Exam Vital Signs: BMI result Body Mass Index 46.7 Const General: cooperative, healthy appearing and comfortable Orientation/consciousness: oriented to person, oriented to place and oriented to time HEENT Head: Yes normal to inspection Neck Neck: Yes normal visual inspection Carotids: no bruits Chest Chest palpation & inspection: normal inspection of the chest Resp Effort & Inspection: normal respiratory effort and able to speak in complete sentences Auscultation: clear to auscultation bilaterally, no crackles, no rales, no rhonchi and no wheezes Cardio Rate: regular rate Rhythm: regular rhythm Heart sounds: S1 normal heart sound present and S2 normal heart sound present Bruits: no carotid bruits Peripheral pulses: Peripheral pulses 2+ throughout GI Inspection: Yes normal to inspection Skin Wounds: no wounds Hair: normal Neuro General: oriented to person, oriented to place and oriented to time Cranial nerves: Yes CN's II-XII intact bilaterally and Yes Normal hearing present Cognition (Neuro): normal cognition Motor exam (neuro): 5/5 motor strength present throughout Extrem Other: venous exam: No significant superficial varicosities or spider telangiectasias, minimal edema General: No clubbing, No cyanosis and No edema Psych Appearance: grossly normal Mental Status: mental status grossly normal Speech and movement: Normal speech and movement present Results Reviewed Results Reviewed: Ultrasound dated 10/14/2023 demonstrates aneurysm measuring 3 x 2.3 which is unchanged from prior studies. Written report and images were reviewed. Assessment & Plan Assessment & Plan (1) Abdominal aortic aneurysm: Code(s): I71.40 - Abdominal aortic aneurysm, without rupture, unspecified Qualifiers: Abdominal aorta location: infrarenal aorta Presence of rupture: without rupture Qualified Code(s): I71.43 - Infrarenal abdominal aortic aneurysm, without rupture Plan: In short patient has radiologic evidence of a AAA on on ultrasound of about 3 cm. We have discussed the pathophysiology of aortic aneurysms and the risk of ruptures. We have discussed rupture risk based on size. In addition we have discussed conservative measures and risk factor modification for prevention of increase in size of the aneurysm. The patient should have a surveillance ultrasound performed in approximately 5 years' time. It has been stable on 2 consecutive ultrasounds. Will follow up with us on an as-needed basis. Thank you for allowing us to assist in his care. If there are any questions or concerns please do not hesitate to contact us. Coding Level of Care Code Est Pt Level 4 (17733) Diagnoses Infrarenal abdominal aortic aneurysm (AAA) without rupture I71.43 Abdominal aorta location: infrarenal aorta Presence of rupture: without rupture
[2023-10-23 09:45] VITALS: BMI 46.7
== END 2023-10-23 10:03 | disposition home or self-care (01) ==
PROVIDERS: PCP Internal Medicine; Visit Provider Surgery Vascular Surgery
DX: I71.43 Infrarenal abdominal aortic aneurysm, without rupture (principal)
CPT/HCPCS: 99214

== ENCOUNTER → 2023-10-23 09:35 | Outpatient (BNVA) | payer OTHER, MEDICAID, SELFPAY | PROVIDERS: PCP Internal Medicine; Visit Provider Surgery Vascular Surgery ==

== ENCOUNTER 2023-10-29 07:24 | Outpatient (AMB) | payer OTHER, MEDICAID, SELFPAY ==
--- NOTE | 2023-10-29 07:42 | A.OFFPC_ITS ---
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 Required: No Accompanied by: Self / Same As Patient Allergies No Known Allergies Allergy (Verified 10/29/23 08:12) Medication List - Last Reconciled 10/29/23 by Sulma Brock MD arm brace (Wrist Support Large-XLarge) As directed blood pressure monitor (Blood Pressure Kit) As directed cholecalciferol (vitamin D3) 50 mcg PO DAILY 90 days [cock up slint wear on each wrist at night ] CPAP (CPAP Machine/Device) As directed docusate sodium 100 mg PO DAILY PRN dronedarone (Multaq) 400 mg PO Q12H famotidine (Pepcid) 40 mg PO DAILY fluticasone propionate 44 mcg/actuation (Flovent HFA) 1 - 2 puffs PO BID PRN losartan 100 mg PO DAILY metoprolol tartrate 25 mg PO Q12H omeprazole 40 mg PO DAILY rivaroxaban (Xarelto) 20 mg PO DAILY 90 days rosuvastatin 5 mg PO DAILY@1730 90 days sennosides (senna) 17.2 mg (2 x 8.6 mg) PO BEDTIME PRN trazodone 50 mg PO BEDTIME PRN 90 days Tobacco use date assessed: 10/29/23 Fall risk assessment: No Falls in past year Last assessed Fall Risk: 10/29/23 Dental Screening Dental Screen Date: 10/29/23 Did you have a dental visit in the last 12 months?: No Did you have a dental problem in the last 6 months where you did not have access to dental care?: No Was dental information given to patient?: Patient has dentist HPI HPI Comments History of Present Illness Details This is a 68-year-old male with hypertension, paroxysmal atrial fibrillation, morbid obesity, dyslipidemia, abdominal aortic aneurysm and obstructive sleep apnea on CPAP that comes today for follow-up on his conditions. Blood pressure stable. On chronic anticoagulation for atrial fibrillation and denies any active bleeding. The goal is heart rate control. He does follows with cardiology for his atrial fibrillation. He is morbidly obese with a BMI of 46.4 and is thinking about considering weight loss surgery but have not decided yet. Cholesterol well control with statins. Recent ultrasound shows abdominal aortic aneurysm that was evaluated by vascular surgery and next ultrasound should be in 3 years. He is compliant with CPAP machine for his obstructive sleep apnea which is follow by sleep medicine and feels more rested. Walks with a cane for gait stability due to chronic knee pain. Needs a live-in aide. [facility] Medical History (Updated 10/29/23 @ 09:07 by Sulma Brock MD) Physical exam Shortness of breath History of cardiomyopathy Obstructive sleep apnea HTN (hypertension) Paroxysmal atrial fibrillation Primary osteoarthritis involving multiple joints Mild asthma Chronic idiopathic constipation Surgical History History of cardioversion History of esophagogastroduodenoscopy (EGD) History of cholecystectomy Family History Mother Diabetes High blood pressure Heart attack Heart problem Father Diabetes Stomach problems Brother Diabetes High blood pressure Stomach problems Paternal Grandmother Lung cancer Sister Cancer Stomach problems Maternal Grandfather Heart problem Maternal Grandmother Heart problem Family/Other Substance use disorder Social History Household Members: Children Housing: Apartment Alcohol intake: never Patient Tobacco Use Status: Former Tobacco user Tobacco use type: Cigarette Cigarettes Per Day: 4 Years Smoked: 10 e-Cigarette/Vaping Use: Never Used Second Hand Smoke Exposure: No service: No Current occupational status: disabled Cognitive needs: Yes Hearing needs: No Vision needs: Yes Questionnaire PHQ-9 Over the last 2 weeks, how often have you been bothered by any of the following problems? 1. Little interest or pleasure in doing things: not at all 2. Feeling down, depressed, or hopeless: not at all 3. Trouble falling or staying asleep, or sleeping too much: not at all 4. Feeling tired or having little energy: not at all 5. Poor appetite or overeating: not at all 6. Feeling bad about yourself - or that you are a failure or have let yourself or your family down: not at all 7. Trouble concentrating on things, such as reading the newspaper or watching television: not at all 8. Moving or speaking so slowly that other people could have noticed. Or the opposite - being so fidgety or restless that you have been moving around a lot more than usual: not at all 9. Thoughts that you would be better off or of hurting yourself in some way: not at all Total score: 0 Depression Screening Interpretation: Negative Depression Screening Done: Yes 91459 - PHQ-9 Billing: Yes Source: Developed by Drs. Trenton Saenz, Antonette Fraser, Malcolm Dias and colleagues, with an educational andi from [employer]. Thrive Questionnaire Date Thrive assessed: 10/29/23 I am a: Patient What is your living situation today?: I have a steady place to live Within the past 12 months, did the food you bought not last and you didn't have the money to get more?: Never true Within the past 12 months, did you worry whether your food would run out before you got money to buy more?: Never true Do you have trouble paying for medicines?: No Do you have trouble getting transportation to medical appointments?: No Do you have trouble paying your heating and electricity bill?: No Do you have trouble taking care of your child, family member or friend?: No Do you have trouble with day-to-day activities such as bathing, preparing meals, shopping, managing finances, etc.?: No Are you currently unemployed and looking for a job?: No Are you interested in more education?: No Please select the resources that you would like help with: None Currently or been in a relationship where the following occur: no concerns reported THRIVE Score: 0 AUDIT C Alcohol Use Questionnaire (AUDIT-C) 1. How often do you have a drink containing alcohol?: Never Total Score: 0 Score Reviewed/Action Taken: No CHALO-7 AMB Questionnaire CHALO-7 Date CHALO - 7 assessed: 10/29/23 Feeling nervous, anxious, or on edge: 0 = Not at all Not being able to stop or control worryin = Not at all Worrying too much about different things: 0 = Not at all Trouble relaxin = Not at all Being so restless that it is hard to sit still: 0 = Not at all Becoming easily annoyed or irritable: 0 = Not at all Feeling afraid as if something awful might happen: 0 = Not at all Total CHALO-7 score (0-4 normal; 5-9 mild; 10-14 moderate; 15-21 severe): 0 Source: Developed by Drs. Trenton Saenz, Antonette Fraser, Malcolm Dias and colleagues, with an educational andi from [employer]. CHALO-7 Assessment Billing CHALO-7 Assessment Tool: CHALO-7 Assessment 12733 Review of Systems Const All systems reviewed & are unremarkable except as noted in HPI and below Eyes Reports no additional complaints, Denies change in vision and Denies other visual disturbances Card Denies chest pain at rest, Denies chest pain with activity, Denies edema, Denies irregular heart rhythm, Denies claudication, Denies dyspnea, Denies dyspnea on exertion, Denies orthopnea, Denies paroxysmal nocturnal dyspnea and Denies slow heart rate Resp Denies cough, Denies dyspnea and Denies dyspnea on exertion Physical exam (Primary Care) Vital Signs: Last Vital Signs BP 118/74 10/29/23 07:44 BMI result Body Mass Index 46.4 Tobacco/Smoking Status: Tobacco use Status Tobacco use date assessed 10/29/23 10/29/23 07:49 Patient Tobacco Use Status Former Tobacco user 10/29/23 07:49 Tobacco use type Cigarette 10/29/23 07:49 e-Cigarette/Vaping Use Never Used 10/29/23 07:49 PHQ-9: PHQ-9 Score PHQ-9: Total score 0 10/29/23 08:12 Depression Screening Interpretation: Negative Thrive Assessment: Date of Thrive Assessment Date Thrive assessed 10/29/23 10/29/23 07:49 Currently or been in a relationship where the following occur: no concerns reported Resp Effort & Inspection: normal respiratory effort Auscultation: clear to auscultation bilaterally Cardio Jugular venous distension: no JVD Rate: regular rate Rhythm: regular rhythm Heart sounds: S1 normal heart sound present and S2 normal heart sound present Extrem General: Yes full ROM Assessment and Plan Assessment & Plan (1) Abdominal aortic aneurysm: Code(s): I71.40 - Abdominal aortic aneurysm, without rupture, unspecified Qualifiers: Abdominal aorta location: infrarenal aorta Presence of rupture: without rupture Qualified Code(s): I71.43 - Infrarenal abdominal aortic aneurysm, without rupture Plan: Follow-up ultrasound is in 3 years. (2) Dyslipidemia: Code(s): E78.5 - Hyperlipidemia, unspecified Plan: Continue statins. Advised to follow a low-cholesterol diet. (3) Morbid obesity: Code(s): E66.01 - Morbid (severe) obesity due to excess calories Plan: Start diet and exercise. BMI goal is less than 30. Consider weight loss surgery. (4) Paroxysmal atrial fibrillation: Code(s): I48.0 - Paroxysmal atrial fibrillation Plan: Continue Xarelto. The goal is heart rate control. Has follow-up with Cardiology. (5) Essential hypertension: Code(s): I10 - Essential (primary) hypertension Plan: Continue losartan. Blood pressure goal is equal or less than 130/80. (6) Obstructive sleep apnea: Code(s): G47.33 - Obstructive sleep apnea (adult) (pediatric) Plan: Continue CPAP machine use. Follow-up with sleep Medicine. Medications: New fluticasone furoate 50 mcg/actuation (Arnuity Ellipta) 1 inh inhalation Q24H 30 days 30 ea 6RF Coding Level of Care Code Est Pt Level 4 (34992) Diagnoses Infrarenal abdominal aortic aneurysm (AAA) without rupture I71.43 Abdominal aorta location: infrarenal aorta Presence of rupture: without rupture Dyslipidemia E78.5 Morbid obesity E66.01 Paroxysmal atrial fibrillation I48.0 Essential hypertension I10 Obstructive sleep apnea G47.33 Additional Codes CHALO-7 Assessment Billing - CHALO-7 Assessment Tool: CHALO-7 Assessment 85076 ([id number]) Time Spent (min) 25
[2023-10-29 07:44] VITALS: BP 118/74; BMI 46.4
== END 2023-10-29 08:21 | disposition home or self-care (01) ==
PROVIDERS: PCP Internal Medicine; Visit Provider Internal Medicine
DX: I48.0 Paroxysmal atrial fibrillation (principal); I71.43 Infrarenal abdominal aortic aneurysm, without rupture; E66.01 Morbid (severe) obesity due to excess calories; Z68.42 Body mass index [BMI] 45.0-49.9, adult; I10 Essential (primary) hypertension; E78.5 Hyperlipidemia, unspecified; G47.33 Obstructive sleep apnea (adult) (pediatric)
CPT/HCPCS: 99214

== ENCOUNTER 2023-11-10 09:18 | Outpatient (AMB) | payer OTHER, MEDICAID, SELFPAY ==
--- NOTE | 2023-11-10 09:51 | A.OFFPC_ITS ---
Vital Signs 11/10/23 09:52 Height 5 ft 11 in Weight 331 lb BMI 46.2 BP 138/80 Blood Pressure Location Lt brachial Position Sitting Intake Visit Reasons: Annual Exam Intake Note: Patient here for an annual physical exam Key Cutter Required: No Accompanied by: Self / Same As Patient Allergies No Known Allergies Allergy (Verified 11/10/23 10:18) Medication List - Last Reconciled 11/10/23 by Sulma Brock MD arm brace (Wrist Support Large-XLarge) As directed blood pressure monitor (Blood Pressure Kit) As directed cholecalciferol (vitamin D3) 50 mcg PO DAILY 90 days [cock up slint wear on each wrist at night ] CPAP (CPAP Machine/Device) As directed docusate sodium 100 mg PO DAILY PRN dronedarone (Multaq) 400 mg PO Q12H famotidine (Pepcid) 40 mg PO DAILY fluticasone furoate 50 mcg/actuation (Arnuity Ellipta) 1 inh inhalation Q24H 30 days losartan 100 mg PO DAILY metoprolol tartrate 25 mg PO Q12H omeprazole 40 mg PO DAILY rivaroxaban (Xarelto) 20 mg PO DAILY 90 days rosuvastatin 5 mg PO DAILY@1730 90 days sennosides (senna) 17.2 mg (2 x 8.6 mg) PO BEDTIME PRN trazodone 50 mg PO BEDTIME PRN 90 days Tobacco use date assessed: 10/29/23 Fall risk assessment: No Falls in past year Last assessed Fall Risk: 11/10/23 Dental Screening Dental Screen Date: 10/29/23 HPI HPI Comments History of Present Illness Details This is a 68-year-old male with morbid obesity, paroxysmal atrial fibrillation and abdominal aortic aneurysm that comes for his physical exam. He is morbidly obese with a BMI of 46.2 and would like weight management referral for possible weight loss surgery. Atrial fibrillation is follow by cardiology and is on chronic anticoagulation. Has an abdominal aortic aneurysm follow by vascular surgery in which ultrasound will be repeated in 3 years. Walks with a cane for gait stability. Last Cologuard was October 2021 and was negative and next Cologuard should be 2024. [facility] Medical History Physical exam Shortness of breath History of cardiomyopathy Obstructive sleep apnea HTN (hypertension) Paroxysmal atrial fibrillation Primary osteoarthritis involving multiple joints Mild asthma Chronic idiopathic constipation Surgical History History of cardioversion History of esophagogastroduodenoscopy (EGD) History of cholecystectomy Family History Mother Diabetes High blood pressure Heart attack Heart problem Father Diabetes Stomach problems Brother Diabetes High blood pressure Stomach problems Paternal Grandmother Lung cancer Sister Cancer Stomach problems Maternal Grandfather Heart problem Maternal Grandmother Heart problem Family/Other Substance use disorder Social History Household Members: Children Housing: Apartment Alcohol intake: never Patient Tobacco Use Status: Former Tobacco user Tobacco use type: Cigarette Cigarettes Per Day: 4 Years Smoked: 10 e-Cigarette/Vaping Use: Never Used Second Hand Smoke Exposure: No service: No Current occupational status: disabled Cognitive needs: Yes Hearing needs: No Vision needs: Yes Questionnaire Thrive Questionnaire Date Thrive assessed: 10/29/23 CHALO-7 AMB Questionnaire CHALO-7 Date CHALO - 7 assessed: 10/29/23 Source: Developed by Drs. Trenton Saenz, Antonette Fraser, Malcolm Dias and colleagues, with an educational andi from [employer]. Review of Systems Const All systems reviewed & are unremarkable except as noted in HPI and below Eyes Reports no additional complaints, Denies change in vision and Denies other visual disturbances Card Denies chest pain at rest, Denies chest pain with activity, Denies edema, Denies irregular heart rhythm, Denies claudication, Denies dyspnea, Denies dyspnea on exertion, Denies orthopnea, Denies paroxysmal nocturnal dyspnea and Denies slow heart rate Resp Denies cough, Denies dyspnea and Denies dyspnea on exertion GI Denies abdominal pain, Denies change in bowel habits, Denies excessive flatus, Denies nausea and Denies vomiting Denies urinary hesitancy, Denies urinary incontinence and Denies urinary urgency Physical exam (Primary Care) Vital Signs: Last Vital Signs BP 138/80 11/10/23 09:52 BMI result Body Mass Index 46.2 BMI Assessment/Plan discussion: High BMI High, discussed plan: lifestyle, weight reduction, dietary and physical activity Tobacco/Smoking Status: Tobacco use Status Tobacco use date assessed 10/29/23 11/10/23 09:56 Patient Tobacco Use Status Former Tobacco user 11/10/23 09:56 Tobacco use type Cigarette 11/10/23 09:56 e-Cigarette/Vaping Use Never Used 11/10/23 09:56 Thrive Assessment: Date of Thrive Assessment Date Thrive assessed 10/29/23 11/10/23 09:56 Const Orientation/consciousness: patient oriented x3 Limitations: ambulation with cane HENMT Head: Yes normal to inspection, Yes normocephalic and Yes atraumatic Ears: external ears normal Eyes General: appearance normal, both eyes and all related structures Eyelids: Yes eyelids normal Conjunctivae: conjunctivae normal Neck Neck: Yes normal visual inspection and Yes supple Resp Effort & Inspection: normal respiratory effort Auscultation: clear to auscultation bilaterally Cardio Jugular venous distension: no JVD Rate: regular rate Rhythm: regular rhythm Heart sounds: S1 normal heart sound present and S2 normal heart sound present GI Inspection: Yes normal to inspection Palpation (GI): Soft to palpation and nontender Auscultation: normal bowel sounds Skin General skin exam: no rashes or lesions noted Neuro General: patient oriented x3 and no focal motor deficits Extrem General: Yes full ROM Psych Appearance: grossly normal Assessment and Plan Assessment & Plan (1) Physical exam: Code(s): Z00.00 - Encounter for general adult medical examination without abnormal findings Plan: Repeat in a year. (2) Morbid obesity: Code(s): E66.01 - Morbid (severe) obesity due to excess calories Plan: Referred to weight management. BMI goal is less than 30. (3) Paroxysmal atrial fibrillation: Code(s): I48.0 - Paroxysmal atrial fibrillation Plan: Continue metoprolol, Multaq and Xarelto. The goal is heart rate control. Follow-up with Cardiology. (4) Abdominal aortic aneurysm: Code(s): I71.40 - Abdominal aortic aneurysm, without rupture, unspecified Qualifiers: Abdominal aorta location: infrarenal aorta Presence of rupture: without rupture Qualified Code(s): I71.43 - Infrarenal abdominal aortic aneurysm, without rupture Plan: Repeat ultrasound in 3 years. Follow-up with vascular surgery. Orders: Orders Lipid Panel 4 Months E78.5 - Hyperlipidemia, unspecified Comprehensive [address]. Panel Fast 4 Months I10 - Essential (primary) hypertension Referrals Medical Weight Management Referral E66.01 - Morbid (severe) obesity due to excess calories Medications: Refilled losartan 100 mg PO DAILY 90 tabs 3RF metoprolol tartrate 25 mg PO Q12H 60 tabs 5RF Coding Level of Care Code Est Pt Prev Care >65y(67062) Diagnoses Physical exam Z00.00 Morbid obesity E66.01 Paroxysmal atrial fibrillation I48.0 Infrarenal abdominal aortic aneurysm (AAA) without rupture I71.43 Abdominal aorta location: infrarenal aorta Presence of rupture: without rupture Time Spent (min) 36
[2023-11-10 09:52] VITALS: BP 138/80; BMI 46.2
== END 2023-11-10 10:34 | disposition home or self-care (01) ==
PROVIDERS: Visit Provider Internal Medicine
DX: Z00.00 Encounter for general adult medical examination without abnormal findings (principal); E66.01 Morbid (severe) obesity due to excess calories; Z68.42 Body mass index [BMI] 45.0-49.9, adult; I48.0 Paroxysmal atrial fibrillation; I71.43 Infrarenal abdominal aortic aneurysm, without rupture
CPT/HCPCS: 99397

== ENCOUNTER → 2023-11-25 09:35 | Outpatient (BNVA) | payer OTHER, MEDICAID, SELFPAY | PROVIDERS: PCP Internal Medicine; Visit Provider Physician Assistant Surgical ==

== ENCOUNTER → 2024-03-05 09:04 | Outpatient (BNVA) | payer OTHER, MEDICAID, SELFPAY | PROVIDERS: PCP Internal Medicine; Visit Provider Surgery ==

== ENCOUNTER 2024-03-11 10:47 | Outpatient (AMB) | payer OTHER, MEDICAID, SELFPAY ==
[2024-03-11 10:59] VITALS: BP 133/78; BMI 50.1
--- NOTE | 2024-03-11 10:59 | A.OFFVIS_ITS ---
Vital Signs 03/11/24 10:59 Height 5 ft 9 in Intake Visit Reasons: 6 months follow up GERD, IBS Intake Note: Vaughn returns to in office follow up of GERD and IBS. CC: Allergies No Known Allergies Allergy (Verified 03/11/24 11:00) COUNTS INCLUDE 234 BEDS AT THE [facility] Medical History Physical exam Shortness of breath History of cardiomyopathy Obstructive sleep apnea HTN (hypertension) Paroxysmal atrial fibrillation Primary osteoarthritis involving multiple joints Mild asthma Chronic idiopathic constipation Surgical History History of cardioversion History of esophagogastroduodenoscopy (EGD) History of cholecystectomy Family History Mother Diabetes High blood pressure Heart attack Heart problem Father Diabetes Stomach problems Brother Diabetes High blood pressure Stomach problems Paternal Grandmother Lung cancer Sister Cancer Stomach problems Maternal Grandfather Heart problem Maternal Grandmother Heart problem Family/Other Substance use disorder Social History Household Members: Children Housing: Apartment Alcohol intake: never Patient Tobacco Use Status: Former Tobacco user Tobacco use type: Cigarette Cigarettes Per Day: 4 Years Smoked: 10 e-Cigarette/Vaping Use: Never Used Second Hand Smoke Exposure: No service: No Current occupational status: disabled Cognitive needs: Yes Hearing needs: No Vision needs: Yes Coding
--- NOTE | 2024-03-11 10:59 | MHC.OFFVIS ---
Vital Signs 03/11/24 10:59 Height 5 ft 9 in Weight 339 lb 8.19 oz BMI 50.1 BP 133/78 Blood Pressure Location Rt brachial Position Sitting Intake Visit Reasons: 6 month follow up GERD, SENNA Intake Note: Patient in office today in follow up of [facility]. CC: He states that he has been stable with medications. Per patient he will be starting to get ready for bariatric surgery per his doctor's advise. Dietitian Helper Required: Yes Dietitian Helper Name: daughter Accompanied by: Daughter Allergies No Known Allergies Allergy (Verified 03/11/24 11:13) HPI HPI 6 month follow up GERD, SENNA: Details: Assessment & Plan (1) Chronic idiopathic constipation: Code(s): K59.04 - Chronic idiopathic constipation (2) GERD (gastroesophageal reflux disease): Code(s): K21.9 - Gastro-esophageal reflux disease without esophagitis Qualifiers: Esophagitis presence: esophagitis presence not specified Qualified Code(s): K21.9 - Gastro-esophageal reflux disease without esophagitis (3) IBS (irritable bowel syndrome): Code(s): K58.9 - Irritable bowel syndrome without diarrhea (4) Peptic ulcer disease: Comment: Discovered on 2018 no H pylori patient appears to have severe chronic gastritis Code(s): K27.9 - Peptic ulcer, site unspecified, unspecified as acute or chronic, without hemorrhage or perforation Plan [place] #declines He says that his rheum d/c'd 2 meds that he felt were effecting his stomach, TRAMADOL and baclofen. Now his dyspepsia is much better with his GI meds/regimen. He is moving his bowels well as well. He has some breakthrough in the AM before eating, but this settles with eating. I also give him famotidne for this as well prn. He continues on his omeprazole and senna. ROV 6 mos. Medications: New famotidine (Pepcid) 40 mg PO DAILY 30 tabs 6RF Refilled omeprazole 40 mg PO DAILY 30 caps 6RF sennosides (senna) 17.2 mg (2 x 8.6 mg) PO BEDTIME PRN 60 tabs 3RF for constipation docusate sodium 100 mg PO DAILY PRN 30 caps 4RF for constipation TODAY'S VISIT [place] #dtr translates per pt request. He did receive the famotidine and is taking it, but they discovered that the Multaq that he takes for rhythm control is what is upsetting his stomach. He is trying to lose weight as he is becoming a part of the bariatric program so he is only eating very like things like jello or a small yogurt and I think he needs more in his stomach to offset the GI effects. We discussed maybe trying peanut butter on a piece of bread or toast. Otherwise he is satisfied with his GI regimen. He continues now on omeprazole in the morning and famotidine at night along with senna and Colace. ROV 6 mos. PFSH Medical History Numbness and tingling in both hands Bilateral shoulder pain Former smoker History of cardiomyopathy Peptic ulcer disease Shortness of breath Physical exam Obstructive sleep apnea HTN (hypertension) Paroxysmal atrial fibrillation Primary osteoarthritis involving multiple joints Mild asthma Chronic idiopathic constipation Surgical History History of cardioversion History of esophagogastroduodenoscopy (EGD) History of cholecystectomy Family History Mother Diabetes High blood pressure Heart attack Heart problem Father Diabetes Stomach problems Brother Diabetes High blood pressure Stomach problems Paternal Grandmother Lung cancer Sister Cancer Stomach problems Maternal Grandfather Heart problem Maternal Grandmother Heart problem Family/Other Substance use disorder Social History Household Members: Children Housing: Apartment Alcohol intake: never Patient Tobacco Use Status: Former Tobacco user Tobacco use type: Cigarette Cigarettes Per Day: 4 Years Smoked: 10 e-Cigarette/Vaping Use: Never Used Second Hand Smoke Exposure: No service: No Current occupational status: disabled Cognitive needs: Yes Hearing needs: No Vision needs: Yes Review of Systems Const Denies fatigue, Denies fever(s), Denies night sweats, Denies poor appetite and Denies weight loss Eyes Details: glasses Reports requires corrective lenses ENT Reports Normal hearing present, Denies dental pain, Denies dysphagia, Denies hearing loss, Denies mouth pain, Denies odynophagia, Denies throat swelling, Denies tongue swelling and Reports other (Dentition adequate) Card Reports no additional complaints Resp Reports no additional complaints GI Details: Denies abdominal pain, Denies melena, Denies bloating, Denies hematochezia, Reports constipation, Denies GI cramping, Denies dysphagia, Denies excessive flatus, Denies early satiety, Reports heartburn, Denies diarrhea, Denies nausea, Denies odynophagia, Denies vomiting and Denies hematemesis Skin/Breast Denies pruritus, Denies lesions, Denies rash and Denies jaundice Neuro Reports Normal hearing present and Denies Abnormal speech present Endo Denies fatigue Aller/Immun Denies throat swelling and Denies tongue swelling Physical Exam Vital Signs: Last Vital Signs BP 133/78 03/11/24 10:59 BMI result Body Mass Index 50.1 Const General: cooperative, no acute distress, well developed and well groomed Nutritional Appearance: well nourished and obese morbidly obese Orientation/consciousness: oriented to person, oriented to place and oriented to time Limitations: language barrier and ambulation with cane HEENT Head: Yes normocephalic and Yes atraumatic Eyes General: appearance normal, both eyes and all related structures Pupils: Equal, round and reactive pupils present Neck Neck: Yes normal visual inspection and Yes no lymphadenopathy Thyroid: Thyroid normal Resp Effort & Inspection: normal respiratory effort and able to speak in complete sentences Auscultation: clear to auscultation bilaterally Cardio Rate: regular rate Rhythm: regular rhythm Heart sounds: Normal, physiologic split S2 sound present Peripheral pulses: radial pulses present and posterior tibial pulses present GI Inspection: No distended, Yes Abdominal panniculus present and Yes obesity Palpation (GI): Soft to palpation, nontender, no guarding, not rigid and No hepatosplenomegaly present Percussion: Yes normal to percussion Auscultation: normal bowel sounds Rectal Exam - Male: Yes deferred Skin General skin exam: no rashes or lesions noted, turgor normal, skin not dry, no jaundice, No spider nevi and no striae Rashes: no rashes Nails: normal Neuro General: oriented to person, oriented to place and oriented to time Cranial nerves: Yes Equal, round and reactive pupils present and Yes Normal hearing present Speech: No Abnormal speech present Extrem General: Yes normal to inspection, No clubbing, No cyanosis and No edema Psych Appearance: grossly normal and well kempt Mental Status: mental status grossly normal Speech and movement: Normal speech and movement present Affect: normal affect Attitude: cooperative Thought process: Normal thought process present and not confabulating Thought content: Normal thought content present Insight: Limited insight present (Psych) Judgement: Limited judgement present (Psych) Assessment & Plan Assessment & Plan (1) Chronic idiopathic constipation: Code(s): K59.04 - Chronic idiopathic constipation Category: Medical (2) GERD (gastroesophageal reflux disease): Code(s): K21.9 - Gastro-esophageal reflux disease without esophagitis Category: Medical Qualifiers: Esophagitis presence: esophagitis presence not specified Qualified Code(s): K21.9 - Gastro-esophageal reflux disease without esophagitis (3) IBS (irritable bowel syndrome): Code(s): K58.9 - Irritable bowel syndrome without diarrhea Category: Medical Plan [place] #dtr translates per pt request. He did receive the famotidine and is taking it, but they discovered that the Multaq that he takes for rhythm control is what is upsetting his stomach. He is trying to lose weight as he is becoming a part of the bariatric program so he is only eating very like things like jello or a small yogurt and I think he needs more in his stomach to offset the GI effects. We discussed maybe trying peanut butter on a piece of bread or toast. Otherwise he is satisfied with his GI regimen. He continues now on omeprazole in the morning and famotidine at night along with senna and Colace. ROV 6 mos. Coding Level of Care Code Est Pt Level 3 (44933) Diagnoses Chronic idiopathic constipation K59.04 Gastroesophageal reflux disease, unspecified whether esophagitis present K21.9 Esophagitis presence: esophagitis presence not specified IBS (irritable bowel syndrome) K58.9
== END 2024-03-11 11:35 | disposition home or self-care (01) ==
PROVIDERS: PCP Internal Medicine; Visit Provider Nurse Practitioner
DX: K59.04 Chronic idiopathic constipation (principal); K21.9 Gastro-esophageal reflux disease without esophagitis; K58.9 Irritable bowel syndrome, unspecified
CPT/HCPCS: 99213

== ENCOUNTER → 2024-03-11 10:47 | Outpatient (BNVA) | payer OTHER, MEDICAID, SELFPAY | PROVIDERS: PCP Internal Medicine; Visit Provider Nurse Practitioner ==

== ENCOUNTER 2024-03-22 10:02 | Outpatient (AMB) | payer OTHER, MEDICAID, SELFPAY ==
[2024-03-22 10:30] VITALS: BP 126/82; BMI 49.2
--- NOTE | 2024-03-22 10:30 | MHC.PC.OV ---
Vital Signs 03/22/24 10:30 Height 5 ft 9 in Weight 333 lb BMI 49.2 BP 126/82 Blood Pressure Location Lt brachial Position Sitting Intake Visit Reasons: afib Assistant In Nursing Required: No Accompanied by: Self / Same As Patient Allergies No Known Allergies Allergy (Verified 03/22/24 10:52) Medication List - Last Reconciled 03/22/24 by Sulma Brock MD arm brace (Wrist Support Large-XLarge) As directed blood pressure monitor (Blood Pressure Kit) As directed cholecalciferol (vitamin D3) 50 mcg PO DAILY 90 days [cock up slint wear on each wrist at night ] CPAP (CPAP Machine/Device) As directed docusate sodium 100 mg PO DAILY PRN dronedarone (Multaq) 400 mg PO Q12H famotidine 40 mg PO DAILY fluticasone furoate 50 mcg/actuation (Arnuity Ellipta) 1 inh inhalation Q24H 30 days losartan 100 mg PO DAILY metoprolol tartrate 25 mg PO Q12H omeprazole 40 mg PO DAILY rivaroxaban (Xarelto) 20 mg PO DAILY 90 days rosuvastatin 5 mg PO DAILY@1730 90 days sennosides (senna) 17.2 mg (2 x 8.6 mg) PO DAILY PRN trazodone 50 mg PO BEDTIME PRN 90 days Tobacco use date assessed: 10/29/23 Fall risk assessment: No Falls in past year Last assessed Fall Risk: 03/22/24 Dental Screening Dental Screen Date: 03/22/24 Did you have a dental visit in the last 12 months?: No Did you have a dental problem in the last 6 months where you did not have access to dental care?: No Was dental information given to patient?: Patient has dentist HPI HPI Comments History of Present Illness Details This is a 68-year-old male with paroxysmal atrial fibrillation, morbid obesity, dyslipidemia and chronic idiopathic constipation that comes today for follow-up on his conditions. Atrial fibrillation is on chronic anticoagulation and this is follow by cardiology. Denies any chest pain, shortness of breath or palpitations. He is morbidly obese with a BMI of 49.2 and is enroll in weight management for weight loss surgery. Cholesterol stable with statins. Constipation well controlled with docusate as needed and follow by Gastroenterology. Walks with a cane for gait stability. [facility] Medical History Numbness and tingling in both hands Bilateral shoulder pain Former smoker History of cardiomyopathy Peptic ulcer disease Shortness of breath Physical exam Obstructive sleep apnea HTN (hypertension) Paroxysmal atrial fibrillation Primary osteoarthritis involving multiple joints Mild asthma Chronic idiopathic constipation Surgical History History of cardioversion History of esophagogastroduodenoscopy (EGD) History of cholecystectomy Family History Mother Diabetes High blood pressure Heart attack Heart problem Father Diabetes Stomach problems Brother Diabetes High blood pressure Stomach problems Paternal Grandmother Lung cancer Sister Cancer Stomach problems Maternal Grandfather Heart problem Maternal Grandmother Heart problem Family/Other Substance use disorder Social History Household Members: Children Housing: Apartment Alcohol intake: never Patient Tobacco Use Status: Former Tobacco user Tobacco use type: Cigarette Cigarettes Per Day: 4 Years Smoked: 10 e-Cigarette/Vaping Use: Never Used Second Hand Smoke Exposure: No service: No Current occupational status: disabled Cognitive needs: Yes Hearing needs: No Vision needs: Yes Questionnaire Thrive Questionnaire Date Thrive assessed: 10/29/23 CHALO-7 AMB Questionnaire CHALO-7 Date CHALO - 7 assessed: 10/29/23 Source: Developed by Drs. Trenotn Saenz, Antonette Fraser, Malcolm Dias and colleagues, with an educational andi from [employer]. Review of Systems Const All systems reviewed & are unremarkable except as noted in HPI and below Card Denies chest pain at rest, Denies chest pain with activity, Denies edema, Denies irregular heart rhythm, Denies claudication, Denies orthopnea, Denies paroxysmal nocturnal dyspnea and Denies slow heart rate Denies urinary hesitancy, Denies urinary incontinence and Denies urinary urgency Musc Denies atrophy, Denies deformity and Denies limited range of motion Physical exam (Primary Care) Vital Signs: Last Vital Signs BP 126/82 03/22/24 10:30 BMI result Body Mass Index 49.2 BMI Assessment/Plan discussion: High BMI High, discussed plan: lifestyle, weight reduction, dietary and physical activity Tobacco/Smoking Status: Tobacco use Status Tobacco use date assessed 10/29/23 03/22/24 10:35 Patient Tobacco Use Status Former Tobacco user 03/22/24 10:35 Tobacco use type Cigarette 03/22/24 10:35 e-Cigarette/Vaping Use Never Used 03/22/24 10:35 Thrive Assessment: Date of Thrive Assessment Date Thrive assessed 10/29/23 03/22/24 10:35 Const Limitations: ambulation with cane Resp Effort & Inspection: normal respiratory effort Auscultation: clear to auscultation bilaterally Cardio Jugular venous distension: no JVD Rate: regular rate Rhythm: regular rhythm Heart sounds: S1 normal heart sound present and S2 normal heart sound present Extrem General: Yes full ROM Assessment and Plan Assessment & Plan (1) Dyslipidemia: Code(s): E78.5 - Hyperlipidemia, unspecified Plan: Continue statins. (2) Chronic idiopathic constipation: Code(s): K59.04 - Chronic idiopathic constipation Plan: Continue docusate as needed (3) Paroxysmal atrial fibrillation: Code(s): I48.0 - Paroxysmal atrial fibrillation Plan: Continue Multaq and Doacs. (4) Abdominal aortic aneurysm: Code(s): I71.40 - Abdominal aortic aneurysm, without rupture, unspecified Qualifiers: Abdominal aorta location: infrarenal aorta Presence of rupture: without rupture Qualified Code(s): I71.43 - Infrarenal abdominal aortic aneurysm, without rupture Plan: Follow with vascular surgery (5) Morbid obesity: Code(s): E66.01 - Morbid (severe) obesity due to excess calories Plan: Follow-up with weight management. BMI goal is less than 30. Orders: Orders Lipid Panel Today E78.5 - Hyperlipidemia, unspecified Complete Blood Count Auto Diff Today D64.9 - Anemia, unspecified Vitamin D 25-OH Total Today E55.9 - Vitamin D deficiency, unspecified Comprehensive Faison. Panel Fast Today I10 - Essential (primary) hypertension Coding Level of Care Code Est Pt Level 4 (01764) Complex EM visit Add On G2211 Diagnoses Dyslipidemia E78.5 Chronic idiopathic constipation K59.04 Paroxysmal atrial fibrillation I48.0 Infrarenal abdominal aortic aneurysm (AAA) without rupture I71.43 Abdominal aorta location: infrarenal aorta Presence of rupture: without rupture Morbid obesity E66.01 Time Spent (min) 23
== END 2024-03-22 11:06 | disposition home or self-care (01) ==
PROVIDERS: PCP Internal Medicine; Visit Provider Internal Medicine
DX: I48.0 Paroxysmal atrial fibrillation (principal); I71.43 Infrarenal abdominal aortic aneurysm, without rupture; E66.01 Morbid (severe) obesity due to excess calories; Z68.42 Body mass index [BMI] 45.0-49.9, adult; K59.04 Chronic idiopathic constipation; E78.5 Hyperlipidemia, unspecified
CPT/HCPCS: 99214; G2211

== ENCOUNTER 2024-04-09 09:41 | Outpatient (AMB) | payer OTHER, MEDICAID, SELFPAY ==
--- NOTE | 2024-04-09 09:54 | A.OFFVIS_ITS ---
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 SWL (Per ) Sterile Processing Technologist Required: Yes Sterile Processing Technologist Services: Sterile Processing Technologist Present Sterile Processing Technologist Name: office cmi Allergies No Known Allergies Allergy (Verified 04/09/24 10:02) Medication List - Last Reconciled 04/09/24 by AKILAH Nicole arm brace (Wrist Support Large-XLarge) As directed blood pressure monitor (Blood Pressure Kit) As directed cholecalciferol (vitamin D3) 50 mcg PO DAILY 90 days [cock up slint wear on each wrist at night ] CPAP (CPAP Machine/Device) As directed docusate sodium 100 mg PO DAILY PRN dronedarone (Multaq) 400 mg PO Q12H famotidine 40 mg PO DAILY fluticasone furoate 50 mcg/actuation (Arnuity Ellipta) 1 inh inhalation Q24H 30 days losartan 100 mg PO DAILY metoprolol tartrate 25 mg PO Q12H omeprazole 40 mg PO DAILY rivaroxaban (Xarelto) 20 mg PO DAILY 90 days rosuvastatin 5 mg PO DAILY@1730 90 days sennosides (senna) 17.2 mg (2 x 8.6 mg) PO DAILY PRN trazodone 50 mg PO BEDTIME PRN 90 days HPI Comments Details: Pt is here to start the [facility] Weight Management surgical weight loss program. He heard about our program from his family and PCP. His goal is to lose weight and achieve a healthy lifestyle as well as to improve, if not resolve, obesity related medical conditions, including hypertension, hyperlipidemia, sleep apnea. He reports first being concerned about his weight 5-6 years ago, highest weight to date was 450. Current weight is 336.4 pounds with a BMI of 49.7. He has tried multiple methods of weight loss including fad diets without permanent results. He lives with his daughter. He does not work. He follows with cardiology Manuelito Gomez for AF He wakes at:?5 am, and goes to bed at?10 pm. Dinner is at 4 pm. Breakfast: coffee decaf, toast, cheese AM snack: skip Lunch: skip PM snack: granola bar Dinner: meat and rice and salad After dinner: PB and Jelly Other snacks: cookies and ice cream Liquids: 32-48 Alcohol/marijuana/tobacco intake: none Exercise: none GERD score: 15 CARLOS score: 4 ESS score: 20 QOL score: 137 [facility] Medical History Numbness and tingling in both hands Bilateral shoulder pain Former smoker History of cardiomyopathy Peptic ulcer disease Shortness of breath Physical exam Obstructive sleep apnea HTN (hypertension) Paroxysmal atrial fibrillation Primary osteoarthritis involving multiple joints Mild asthma Chronic idiopathic constipation Surgical History History of cardioversion History of esophagogastroduodenoscopy (EGD) History of cholecystectomy Family History Mother Diabetes High blood pressure Heart attack Heart problem Father Diabetes Stomach problems Brother Diabetes High blood pressure Stomach problems Paternal Grandmother Lung cancer Sister Cancer Stomach problems Maternal Grandfather Heart problem Maternal Grandmother Heart problem Family/Other Substance use disorder Social History Household Members: Children Housing: Apartment Alcohol intake: never Patient Tobacco Use Status: Former Tobacco user Tobacco use type: Cigarette Cigarettes Per Day: 4 Years Smoked: 10 e-Cigarette/Vaping Use: Never Used Second Hand Smoke Exposure: No service: No Current occupational status: disabled Cognitive needs: Yes Hearing needs: No Vision needs: Yes Physical Exam Vital Signs: Last Vital Signs Temp 96.8 F 04/09/24 10:05 Pulse 58 04/09/24 10:05 BP 157/72 H 04/09/24 10:05 Pulse Ox 95 04/09/24 10:05 Oxygen Delivery Method Room Air 04/09/24 10:05 BMI result Body Mass Index 49.7 Const General: cooperative, healthy appearing and no acute distress Orientation/consciousness: patient oriented x3 HEENT Head: Yes normal to inspection Ears: hearing grossly normal bilaterally General nose exam: Normal external nose present Face and sinus: Yes normal facial exam Eyes General: appearance normal, both eyes and all related structures Resp Effort & Inspection: normal respiratory effort Auscultation: clear to auscultation bilaterally Cardio Rate: regular rate Rhythm: regular rhythm Heart sounds: S1 normal heart sound present and S2 normal heart sound present GI Inspection: Yes normal to inspection, No distended and Yes obesity Palpation (GI): Soft to palpation, nontender and no guarding Auscultation: normal bowel sounds Skin General skin exam: no rashes or lesions noted Neuro General: patient oriented x3 Extrem General: Yes edema Psych Appearance: grossly normal Mental Status: mental status grossly normal Speech and movement: Normal speech and movement present Affect: normal affect Attitude: cooperative Assessment & Plan Assessment & Plan (1) Morbid obesity: Code(s): E66.01 - Morbid (severe) obesity due to excess calories Category: Medical Plan: This is a?68 yo male who will start our SWL program to prepare for bariatric surgery.? Blood work, CXR, ECG, Abd US and UGI have been ordered. She is being scheduled for initial consultations. She will start SWL classes and watch the first three videos before her next appointment. 1. You have been given a paper with a link to our software ashley ([employer]) to generate an individualized nutritional and exercise plan specific for you. Please send me a screenshot of the plans you will generate Meal to include lean meat (beef, fish, pork, turkey, chicken), or cape verdean yogurt, or egg whites, or beans with a salad with olive oil and fruits (berries, pears, apples, kiwi). Avoid salt, breads, potatoes, rice, pasta, desserts. 2. If you choose shakes, each shake would be drunk slowly, like coffee over a period of 2 hours. 3. If you choose bars, cut each bar in 4 pieces and eat each piece in 30 min to make each bar last 2 hours. 4. I emphasized the importance of measuring accurately the food portion and measure it when serving the food on a plate 5. The meal portions include a specific number of forks of meat (protein) and salad. You always eat the meat portion but you can replace up to half of salad/vegetables portion with rice, potatoes or pasta, or a fruit ?if you like. The less you do it the better weight loss will be. 6. One full-size fork is what can be scooped on the fork without falling aside and not what can be bit with the fork. Use regular forks like those you find in a typical restaurant. 7.? Please send me weight measurements from your body composition scale as soon as possible and then once a week. Always include your diet and exercise plan. The best time to weigh yourself is first thing in the morning after going to the bathroom. 8. The best choice for exercise would be treadmill or staionary bike. Please join [employer] with the discount paper I gave you. Alternatively start walking outside daily, tracking calories with a goal of 300 calories per day, daily. You can download the ashley [employer] which can track your time, distance and calories while walking outside. You press start in the ashley when you start and then stop when you are finished. 9.?Goal is to lose at least 1.5-2 lbs per week, and about 10% before surgery, which is about 33 pounds 10. Please follow the diet plan exactly without any change. If you don't like something about the plan or you feel hungry you need to communicate with me so I can help you revise the plan. My cell phone number to communicate with me by text is [phone] Patient is morbidly obese and is not considered stable at this time.?I spent a total of 70 minutes reviewing/updating records, examining the patient and counseling the patient on weight management as detailed above. Orders: Orders Comprehensive Met. Panel Today E55.9 - Vitamin D deficiency, unspecified, E66.01 - Morbid (severe) obesity due to excess calories, E78.5 - Hyperlipidemia, unspecified, I10 - Essential (primary) hypertension C Reactive Protein Today E55.9 - Vitamin D deficiency, unspecified, E66.01 - Morbid (severe) obesity due to excess calories, E78.5 - Hyperlipidemia, unspecified, I10 - Essential (primary) hypertension TSH reflex Free T4 Today E55.9 - Vitamin D deficiency, unspecified, E66.01 - Morbid (severe) obesity due to excess calories, E78.5 - Hyperlipidemia, unspecified, I10 - Essential (primary) hypertension Ferritin Today E55.9 - Vitamin D deficiency, unspecified, E66.01 - Morbid (severe) obesity due to excess calories, E78.5 - Hyperlipidemia, unspecified, I10 - Essential (primary) hypertension US abdomen comp w elastography Today E55.9 - Vitamin D deficiency, unspecified, E66.01 - Morbid (severe) obesity due to excess calories, E78.5 - Hyperlipidemia, unspecified, I10 - Essential (primary) hypertension XR chest 2V Today E55.9 - Vitamin D deficiency, unspecified, E66.01 - Morbid (severe) obesity due to excess calories, E78.5 - Hyperlipidemia, unspecified, I10 - Essential (primary) hypertension Insulin Today E55.9 - Vitamin D deficiency, unspecified, E66.01 - Morbid (severe) obesity due to excess calories, E78.5 - Hyperlipidemia, unspecified, I10 - Essential (primary) hypertension Hemoglobin A1c Today E55.9 - Vitamin D deficiency, unspecified, E66.01 - Morbid (severe) obesity due to excess calories, E78.5 - Hyperlipidemia, unspecified, I10 - Essential (primary) hypertension Complete Blood Count Auto Diff Today E55.9 - Vitamin D deficiency, unspecified, E66.01 - Morbid (severe) obesity due to excess calories, E78.5 - Hyperlipidemia, unspecified, I10 - Essential (primary) hypertension Lipid Panel Today E55.9 - Vitamin D deficiency, unspecified, E66.01 - Morbid (severe) obesity due to excess calories, E78.5 - Hyperlipidemia, unspecified, I10 - Essential (primary) hypertension IRON PROFILE Today E55.9 - Vitamin D deficiency, unspecified, E66.01 - Morbid (severe) obesity due to excess calories, E78.5 - Hyperlipidemia, unspecified, I10 - Essential (primary) hypertension Vitamin B12 and Folate Today E55.9 - Vitamin D deficiency, unspecified, E66.01 - Morbid (severe) obesity due to excess calories, E78.5 - Hyperlipidemia, unspecified, I10 - Essential (primary) hypertension Zinc Today E55.9 - Vitamin D deficiency, unspecified, E66.01 - Morbid (severe) obesity due to excess calories, E78.5 - Hyperlipidemia, unspecified, I10 - Essential (primary) hypertension Vitamin B1 Today E55.9 - Vitamin D deficiency, unspecified, E66.01 - Morbid (severe) obesity due to excess calories, E78.5 - Hyperlipidemia, unspecified, I10 - Essential (primary) hypertension Vitamin A Today E55.9 - Vitamin D deficiency, unspecified, E66.01 - Morbid (severe) obesity due to excess calories, E78.5 - Hyperlipidemia, unspecified, I10 - Essential (primary) hypertension Vitamin D 25-OH Total Today E55.9 - Vitamin D deficiency, unspecified, E66.01 - Morbid (severe) obesity due to excess calories, E78.5 - Hyperlipidemia, unspecified, I10 - Essential (primary) hypertension ECG 12 lead EKG Today E55.9 - Vitamin D deficiency, unspecified, E66.01 - Morbid (severe) obesity due to excess calories, E78.5 - Hyperlipidemia, unspecified, I10 - Essential (primary) hypertension FL upper GI w air Today E55.9 - Vitamin D deficiency, unspecified, E66.01 - Morbid (severe) obesity due to excess calories, E78.5 - Hyperlipidemia, unspecified, I10 - Essential (primary) hypertension Referrals Behavioral Health Referral E55.9 - Vitamin D deficiency, unspecified, E66.01 - Morbid (severe) obesity due to excess calories, E78.5 - Hyperlipidemia, unspecified, I10 - Essential (primary) hypertension
[2024-04-09 10:05] VITALS: BP 157/72; PULSE 58; TEMP 36; O2SAT 95; BMI 49.7
== END 2024-04-09 10:52 | disposition home or self-care (01) ==
PROVIDERS: PCP Internal Medicine; Visit Provider Physician Assistant Surgical
DX: E66.01 Morbid (severe) obesity due to excess calories (principal); Z68.42 Body mass index [BMI] 45.0-49.9, adult
CPT/HCPCS: 99205

== ENCOUNTER → 2024-04-09 09:41 | Outpatient (BNVA) | payer OTHER, MEDICAID, SELFPAY | PROVIDERS: PCP Internal Medicine; Visit Provider Physician Assistant Surgical ==

== ENCOUNTER 2024-04-23 10:17 | Outpatient (REF) | payer OTHER, MEDICAID, SELFPAY ==
--- NOTE | ~2024-04-23 | XR_ITS ---
EXAMINATION: XR CHEST 2 VIEWS CLINICAL INFORMATION: Morbid (severe) obesity due to excess calories E66.01. Patient states he is going through weight management program. COMPARISON: XR Chest 09/24/2018 TECHNIQUE: 2 views of the chest were obtained. FINDINGS: No significant abnormality is noted involving the heart, lungs, mediastinum, bony thorax or soft tissues. Degenerative changes in the thoracic spine XR/XR chest 2V IMPRESSION: Unremarkable examination. Electronically signed by: Too Schrader MD 06/29/2024 11:02 AM [facility]
--- NOTE | ~2024-04-23 | US_ITS ---
EXAMINATION: US COMPLETE ABDOMEN WITH LIVER ELASTOGRAPHY CLINICAL INFORMATION: Morbid obesity. COMPARISON: CT abdomen pelvis 09/24/2018, ultrasound abdomen 07/27/2018. TECHNIQUE: Real-time imaging of the abdominal viscera. Noninvasive ultrasound liver fibrosis assessment is performed using Bibi ElastPQ point quantification shear wave elastography (pSWE) with a C5-2 MHz transducer. Multiple elastography samples are obtained. FINDINGS: PANCREAS: The visualized portions of the pancreas are unremarkable but a majority of the gland is obscured by bowel gas. I ABDOMINAL AORTA: The proximal, middle, and distal aortic segments are normal in caliber. INFERIOR VENA CAVA: Visualized portions are normal. LIVER: There is a large 5.9 x 4.6 x 6.1 cm mass seen in the right lobe of the liver which can be seen on the prior CT scan measuring about the same size with peripheral enhancement consistent with a hemangioma. This mass is echogenic with some hypoechoic areas centrally.. The liver demonstrates normal size but with increased echogenicity The right lobe measures 13.2 cm in length. The left lobe measures 9.3 cm in length. Portal flow is towards the liver (hepatopetal). Shear wave liver elastography median stiffness is 1.62 m/s (reference: normal median stiffness is 1.3 m/s or less). IQR/median stiffness to assess sampling precision is 0.19 (reference: good quality data set is IQR/median stiffness of 0.15 or less). GALLBLADDER: Status post cholecystectomy COMMON BILE DUCT: Normal in caliber measuring 0.4 cm in diameter. RIGHT KIDNEY: Normal. No hydronephrosis. No renal calculi or focal parenchymal lesions. The kidney measures 10.2 cm in maximum dimension. LEFT KIDNEY: Normal. No hydronephrosis. No renal calculi or focal parenchymal lesions. The kidney measures 10.2 cm in maximum dimension. SPLEEN: Normal. The spleen measures 9.9 cm in maximum dimension. FREE FLUID: None. US/US abdomen comp w elastography IMPRESSION: 1. There is hepatic steatosis 2. Mass in right lobe of liver has features consistent with a cavernous hemangioma and seen similar to the CT scan on 09/24/2018. Findings are consistent with a cavernous hemangioma. If absolute certainty is needed, MRI could always be performed. 2. Liver elastography: In the absence of other known clinical signs, measurements rule out compensated advanced chronic liver disease. If there are known clinical signs, further testing may be needed for confirmation. REFERENCE: Society of Radiologists in Ultrasound Liver Stiffness Thresholds (2020): LIVER STIFFNESS THRESHOLDS: *Liver Stiffness equal or less than 1.3 m/s: High probability of being normal. *Liver Stiffness less than 1.7 m/s: In the absence of other known clinical signs, rules out compensated advanced chronic liver disease. *Liver Stiffness 1.7-2.1 m/s: Suggestive of compensated advanced chronic liver disease but need further test for confirmation. *Liver Stiffness over 2.1 m/s: Rules in compensated advanced chronic liver disease. *Liver Stiffness over 2.4 m/s: Suggestive of clinically significant portal hypertension. QUALITY OF DATA SET: *IQR/Median value equal or less than 0.15 implies a quality data set. *IQR/Median value over 0.15 implies a poor quality data set. SIGNIFICANT CHANGE FROM PRIOR EXAM: Significant change if liver stiffness measurement is 10% or greater from prior exam. OTHER CONSIDERATIONS: The stage of liver fibrosis may be overestimated in the setting of acute hepatitis, liver inflammation, elevated liver function tests, hepatic vascular congestion, obstructive cholestasis, non-fasting state, and infiltrative diseases such as amyloidosis and lymphoma. In some patients with NAFLD, the liver stiffness thresholds for compensated advanced chronic liver disease may be lower. In causes other than viral hepatitis and NAFLD, liver stiffness thresholds are not well established. Electronically signed by: Chance Segovia MD 06/18/2024 01:02 PM [facility] [place]
== END 2024-04-23 10:18 | disposition home or self-care (01) ==
LOC: HO.US 10:17
PROVIDERS: PCP Internal Medicine; Visit Provider Physician Assistant Surgical
DX: E66.01 Morbid (severe) obesity due to excess calories (principal); E55.9 Vitamin D deficiency, unspecified; I10 Essential (primary) hypertension; E78.5 Hyperlipidemia, unspecified
CPT/HCPCS: 71046; 76700; 76981

== ENCOUNTER → 2024-04-29 08:25 | Outpatient (REF) | payer MEDICARE, SELFPAY ==
--- NOTE | 2024-04-29 08:33 | ECG_ITS ---
Test Reason : OBS Blood Pressure : / mmHG Vent. Rate : 049 BPM Atrial Rate : 049 BPM P-R Int : 174 ms QRS Dur : 106 ms QT Int : 466 ms P-R-T Axes : 022 043 019 degrees QTc Int : 420 ms Sinus bradycardia Incomplete left bundle branch block Borderline ECG When compared with ECG of 12-FEB-2023 13:42, T wave amplitude has increased in Anterior leads Referred By: Janes Bradley Electronically Signed By:LEONARD ELENA
[2024-04-29 09:00] LABS: MANUAL DIFF FLAG NO
[2024-04-29 09:13] LABS: Basophils Absolute Auto 0.1 X10*3/uL (0.0-0.2); Basophils Percent Auto 0.8 % (0-2); Eosinophils Absolute Auto 0.1 X10*3/uL (0.0-0.4); Eosinophils Percent Auto 1.8 % (0-4); Hematocrit 44.2 % (42.0-52.0); Hemoglobin 14.5 g/dl (14.0-18.0); Imm Gran Abs Auto 0.02 X10*3/uL (0.00-0.03); Imm Gran Pct Auto 0.3 % (0.0-0.4); Lymphocytes Absolute Auto 1.7 X10*3/uL (1.2-4.9); Lymphocytes Percent Auto 27.6 % (20-40); Mean Corpuscular HGB Conc 32.8 g/dl (31.0-36.0); Mean Corpuscular Hemoglobin 29.4 pg (27.0-33.0); Mean Corpuscular Volume 89.7 fL (80.0-98.0); Monocytes Absolute Auto 0.5 X10*3/uL (0.1-1.2); Monocytes Percent Auto 8.5 % (2-11); Neutrophils Absolute Auto 3.7 x10*3/uL (2.0-8.3); Platelet Count 158 X10*3/uL (160-400); Red Blood Count 4.93 X10*6/uL (4.60-5.80); Red Cell Distribution Width 13.2 % (11.0-16.0); White Blood Count 6.1 X10*3/uL (4.8-10.8)
[2024-04-29 09:31] LABS: Estimated Average Glucose 117 mg/dL; Hemoglobin A1C 142.1734 umol/L; Hemoglobin A1c % 5.7 % (<6.0); Total Hemoglobin (HGBA1C) 3673.1151 umol/L
[2024-04-29 09:46] LABS: Alanine Aminotransferase 13 U/L (0-40); Albumin Level 4.4 g/dL (3.5-5.0); Alkaline Phosphatase 57 U/L (39-117); Anion Gap 13 (12-20); Aspartate Amino Transferase 21 U/L (5-37); Bilirubin Total 0.7 mg/dL (0.0-1.0); Blood Urea Nitrogen 19 mg/dL (9-16); C Reactive Protein < 0.10 mg/dL (< or = 0.50); Carbon Dioxide 25 mmol/L (22-29); Chloride 102 mmol/L (96-108); Cholesterol 96 mg/dL (<200); Estimated Glomerular Filt Rate 47; Glucose Random 93 mg/dL (60-115); HDL Cholesterol 39 mg/dL (>40); Iron 68 mcg/dL (45-160); LDL Cholesterol Calculated 43 mg/dL (<100); Percent Iron Saturation 23 % (15-50); Potassium 4.7 mmol/L (3.3-5.1); Sodium 135 mmol/L (135-145); Total Iron Binding Capacity 295 mcg/dL (228-428); Total Protein 7.8 g/dL (6.5-8.0); Triglycerides 71 mg/dL (<150); Unsaturated Iron Binding 227 ug/dL
[2024-04-29 10:04] LABS: Ferritin 98 ng/mL (20-250); Insulin 9 uU/mL (2-29); TSH reflex Free T4 1.13 uIU/mL (0.32-4.0); Vitamin D 25-OH Total 54.3 ng/mL (>30)
[2024-04-29 10:10] LABS: Vitamin B12 205 pg/mL (200-900)
[2024-05-03 09:58] LABS: Zinc 59 mcg/dL (60-130)
[2024-05-05 15:29] LABS: Vitamin B1 11 nmol/L (8-30)
[2024-05-05 23:43] LABS: Vitamin A 33 mcg/dL (38-98)
== END ==
LOC: HO.CARD 08:25
PROVIDERS: PCP Internal Medicine; Visit Provider Physician Assistant Surgical
DX: Z13.1 Encounter for screening for diabetes mellitus (principal); I10 Essential (primary) hypertension; E66.01 Morbid (severe) obesity due to excess calories; E55.9 Vitamin D deficiency, unspecified; E78.5 Hyperlipidemia, unspecified
CPT/HCPCS: 36415; 80053; 80061; 82306; 82607; 82728; 82746; 83036; 83525; 83540; 84425; 84443; 84590; 84630; 85025; 86140; 93005

== ENCOUNTER → 2024-04-29 08:33 | Outpatient (BNV) | payer MEDICARE, SELFPAY | PROVIDERS: PCP Internal Medicine; Visit Provider Internal Medicine | DX: R00.1 Bradycardia, unspecified (principal); I44.7 Left bundle-branch block, unspecified | CPT/HCPCS: 93010 ==

== ENCOUNTER → 2024-04-30 11:35 | Outpatient (AMB) | payer MEDICARE, SELFPAY ==
--- NOTE | 2024-04-30 11:25 | A.OFFWM_ITS ---
Intake Intake Visit Reasons: (TV) BH Intake Allergies No Known Allergies Allergy (Verified 05/07/24 10:31) [facility] Medical History Numbness and tingling in both hands Bilateral shoulder pain Former smoker History of cardiomyopathy Peptic ulcer disease Shortness of breath Physical exam Obstructive sleep apnea HTN (hypertension) Paroxysmal atrial fibrillation Primary osteoarthritis involving multiple joints Mild asthma Chronic idiopathic constipation Surgical History History of cardioversion History of esophagogastroduodenoscopy (EGD) History of cholecystectomy Family History Mother Diabetes High blood pressure Heart attack Heart problem Father Diabetes Stomach problems Brother Diabetes High blood pressure Stomach problems Paternal Grandmother Lung cancer Sister Cancer Stomach problems Maternal Grandfather Heart problem Maternal Grandmother Heart problem Family/Other Substance use disorder Social History Household Members: Children Housing: Apartment Alcohol intake: never Patient Tobacco Use Status: Former Tobacco user Tobacco use type: Cigarette Cigarettes Per Day: 4 Years Smoked: 10 e-Cigarette/Vaping Use: Never Used Second Hand Smoke Exposure: No service: No Current occupational status: disabled Cognitive needs: Yes Hearing needs: No Vision needs: Yes Behavioral Health Assessment Weight Management Therapy Therapy Notes Details PT is a years old F/M, who presents for a visit to complete BH assessment as part of surgical weight loss program. PT reports he's interested in bariatric surgery as a strategy to loss weight and improve his lifestyle and ehalth. He has multiple obesity-related issues such as sleep apnea, HBP, pain due to arthritis that could improve or resolve if he is at a healthy weight. Presenting Concerns Referral Source P Provider, PT saw MB 04/09/2024 and initial weight was 336Lbs. Reason for referral Completion of behavioral health assessment as part of process for weight-loss surgery. Precipitating Event Obesity. Living Situation Current Living Situation Rent (Section 8) At risk of losing current housing? No Satisfied with current living situation? Yes Comments Pt lives with his 34 y/o daughter and 2 grandkids. Food/Weight/Diet Expectations of change Meal plan: hasn't started the full meal plan. Struggling as he's getting used to bars and small portions. Exercise: none History/Relationship with food PT reports he has not scheduled meals, as he doesn't have a big appetite. He tends to eat when hungry and was having 2 meals at day, and for dinner was snack-style, having ice-cream every night. Breakfast: Coffee with cream, a toast with butter and cheese, other times 2 HB eggs with a toast. Lunch: @3/4 rice, beans, meat, or potatoes with red meat. PT reports normal portions. Dinner: a granola bar or a yogurt. Snack: Ice-cream around 9pm. History/Relationship with weight He was a very active person, started gainign weight after physical activity changed History/Relationship with dieting Diets, eliminating certain foods Social History Family history and relationship PT is over 10 years ago. He has 9 adult children, and 6 grandkids. He has 8 siblings alive, parents . PT reports he has good family relationships. Parental/Familial control and recovery special tactics obligations None. Developmental history and status None reported. Social support Daughter who had bariatric surgery, ex-partner also had it. His children. Community support Providers. Druze/Spirituality Jain. Cultural/Ethnic information PT was born and raised in Living [place] the [place] ago. Moved to [place] initially and them relocated to [place]. PT is mainly Maldivian- speaking. Legal Involvement and History Current or historical involvement with the legal system? none reported. Education Highest grade completed HS from a technical/vocational school. Preferred learning style Auditory and Visual (Reading) Currently enrolled in educational program? No Interested in further educational program? 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 Employment Employment Status Other (Stop working at age 48, since then he's receiving disability and social security. ) Wants help to find employment? No Meaningful activities Listen and learn about music, reading. Financial Situation Describe current financial situation Comfortable Financial assistance? Food [place], SSI and Disability Service Service? No Mental Health and Addiction Treatment Current/Past substance abuse? No Comments Alcohol: None Cigarettes/Tobacco: None Cannabis/Edibles: None Current/Past addictive behavior concerns? No Psychiatric history PT attended counseling and psychiatric treatment at [facility] over 20 years ago due to anxiety and used psych meds at that time, Prozac, Ambien, Quetiapine. Denies ever been hospitalized for mental health or been in crisis. PT also denies history of SI/SA and/or other safety concerns around self-harm or other- harm. Medical and Physical Health Summary Additional Medical History not covered in history None else reported Sexual History concerns None reported Physical exam in the last year? Yes Pain Screening Current pain? Yes Pain in the last few months? Yes Comments Pain due to arthitis. Medications Is the patient compliant with medications? Yes (his daughter is his LINUX SOLARIS ADMINISTRATOR and reminds him to take them daily.) Does the patient have Harris Guardian in place? Not applicable Does the patient use complimentary health approaches? No Trauma/Abuse History History of trauma? No Questionnaires PHQ-9 Over the last 2 weeks, how often have you been bothered by any of the following problems? 1. Little interest or pleasure in doing things: nearly every day 2. Feeling down, depressed, or hopeless: several days 3. Trouble falling or staying asleep, or sleeping too much: nearly every day 4. Feeling tired or having little energy: nearly every day 5. Poor appetite or overeating: more than half the days 6. Feeling bad about yourself - or that you are a failure or have let yourself or your family down: nearly every day 7. Trouble concentrating on things, such as reading the newspaper or watching television: more than half the days 8. Moving or speaking so slowly that other people could have noticed. Or the opposite - being so fidgety or restless that you have been moving around a lot more than usual: not at all 9. Thoughts that you would be better off or of hurting yourself in some way: not at all Total score: 17 Depression Screening Interpretation: Positive (Scores from new PT pack on 04/13/2024) Depression Screening Done: Yes Source: Developed by Drs. Trenton Saenz, Antonette Fraser, Malcolm Dias and colleagues, with an educational andi from [employer]. Binge Eating Scale Group 1 A. I don't feel self-conscious about my wt. or body size when I'm with others. B. I feel concerned about how I look to others, but it normally does not make me fell disappointed with myself C. I do get self-conscious about my appearance and wt. which makes me feel disappointed in myself. D. I feel very self-conscious about my wt. and frequently I feel intense shame and disgust for myself. I try to avoid social contacts because of my self- consciousness. Response Group 1: D Group 2 A. I don't have any difficulty eating slowly in the proper manner. B. Although I seem to gobble down foods, I don't end up feeling stuffed because of eating to much. C. At times, I tend to eat quickly and then, I feel uncomfortably full afterwards. D. I have the habit of bolting down my food, without really chewing it. When this happens I usually feel uncomfortably stuffed because I've eaten to much. Response Group 2: B Group 3 A. I feel capable to control my eating urges when I want to. B. I feel like I have failed to control my eating more than the average person. C. I feel utterly helpless when it comes to feeling in control of my eating urges. D. Because I feel so helpless about controlling my eating I have become very desperate about trying to get control. Response Group 3: D Group 4 A. I don't have the habit of eating when I'm bored. B. I sometimes eat when I'm bored, but often I'm able to get busy and get my mind off food. C. I have a regular habit of eating when I'm bored, but occasionally, I can use some other activity to get my mind off eating. D. I have a strong habit of eating when I'm bored. Nothing seems to help me breath the habit. Response Group 4: A Group 5 A. I'm usually physically hungry when I eat something. B. Occasionally, I eat something on impulse even though I really am not hungry. C. I have the regular habit of eating foods, that I might not really enjoy, to satisfy a hungry feeling even though physically, I don't need the food. D. Although I'm not physically hungry, I get a hungry feeling in my mouth that only seems to be satisfied when I eat a food, like sandwich, that fills my mouth. Sometimes, when I eat the food to satisfy my mouth hunger, I then spit the food out so I won't gain weight. Response Group 5: A Group 6 A. I don't feel any guilt or self-hate after I overeat. B. After I overeat, occasionally I feel guilt or self-hate. C. Almost all the time I experience strong guilt or self-hate after I overeat. Response Group 6: A Group 7 A. I don't lose total control of my eating when dieting even after periods when I overeat. B. Sometimes when I eat a forbidden food on a diet, I feel like I blew it and eat even more. C. Frequently, I have the habit of saying to myself, I've blown it now, why not go all the way, when I overeat on a diet. When that happens I eat more. D. I have a regular habit of starting a strict diets for myself but I break the diets by going on an eating binge. My life seems to be either a feast or famine. Response Group 7: A Group 8 A. I rarely eat so much food that I feel uncomfortably stuffed afterwards. B. Usually about once a month, I each such a quantity of food, I end up feeling very stuffed. C. I have regular periods during the month when I eat large amounts of food, either at mealtime or at snacks. D. I eat so much food that I regularly feel quite uncomfortable after eating and sometimes a bit nauseous. Response Group 8: A Group 9 A. My level of calorie intake does not go up very high or go down very low on a regular basis. B. Sometimes after I overeat, I will try to reduce my caloric intake to almost nothing to compensate for the excess calories I've eaten. C. I have a regular habit of overeating during the night. It seems that my routine is not to be hungry in the morning but overeat in the evening. D. In my adult years, I have had week-long periods where I practically starve myself. This follows periods when I overeat. It seems I live a life of either feast or famine. Response Group 9: B Group 10 A. I usually am able to stop eating when I want to. I know when enough is enough. B. Every so often, I experience a compulsion to eat which I can't seem to control. C. Frequently, I experience strong urges to eat which I seem unable to control, but at other times I can control my eating urges. D. I feel incapable of controlling urges to eat. I have a fear of not being able to stop eating voluntarily. Response Group 10: A Group 11 A. I don't have any problem stopping eating when I feel full. B. I usually can stop eating when I feel full but occasionally overeat leaving me feeling uncomfortably stuffed. C. I have a problem stopping eating once I start and usually I feel uncomfortably stuffed after I eat a meal. D. Because I have a problem not being able to stop eating when I want, I sometimes have to induce vomiting to relieve my stuffed feeling. Response Group 11: A Group 12 A. I seem to eat just as much when I'm with others, Family social gatherings as when I'm by myself. B. Sometimes, when I'm with other persons, I don't eat as much as I want to eat because I'm self-conscious about my eating. C. Frequently, I eat only a small amount of food when others are present, bec ause I'm very embarrassed about my eating. D. I feel so ashamed about overeating that I pick times to overeat when I know no one will see me. I feel like a closet eater. Response Group 12: A Group 13 A. I eat three meals a day with only an occasional between meal snack. B. I eat 3 meals a day, but I also normally snack between meals. C. When I am snacking heavily, I get in the habit of skipping regular meals. D. There are regular periods when I seem to be continually eating, with no planned meals. Response Group 13: A Group 14 A. I don't think much about trying to control unwanted eating urges. B. At least some of the time, I feel my thoughts are pre-occupied with trying to control my eating urges. C. I feel that frequently I spend much time thinking about how much I ate or about trying not to eat anymore. D. It seems to me that most of my waking hours are pre-occupied by thoughts about eating or not eating. I feel like I'm constantly struggling not to eat. Response Group 14: A Group 15 A. I don't think about food a great deal. B. I have strong craving for food but they last only for brief periods of time. C. I have days when I can't seem to think about anything else but food. D. Most of my days seem to be pre-occupied with thoughts about food. I feel like I live to eat. Response Group 15: B Group 16 A. I usually know whether or not I'm physically hungry. I take the right portion of food to satisfy me. B. Occasionally, I feel uncertain about knowing whether or not I'm physically hungry. A these times it's hard to know how much food I should take to satisfy me. C. Even though I might know how many calories I should eat, I don't have any idea what is a normal amount of food for me. Response Group 16: B Binge Eating Score: 10 Score less than 17 Minimal Risk Score between 18-26 Moderate Risk Score between 27-46 High Risk Assessment & Plan Assessment & Plan (1) Adjustment disorder with anxious mood in remission: Code(s): F43.22 - Adjustment disorder with anxiety (2) Problems related to inappropriate diet and eating habits: Code(s): Z72.4 - Inappropriate diet and eating habits Plan The assessment is not complete yet, so the patient has not been cleared. The patient will follow up with me again on 05/19/2024 via Telehealth to continue the assessment. The PHQ-9 will be administered again, and the BES will be reviewed with the client. Telehealth Telehealth Telehealth Platform: [facility] Location of provider rendering services: other Location of patient: address on file Patient Identification confirmed using: Name, : Yes Telehealth method: voice only Patient verbally consented to treatment: Yes Patient verbally consented to billing insurance company: Yes Patient informed of any privacy concerns related to visit: Yes Minutes spent on Phone/Video with Pt.: 45 Coding Level of Care Code New Pt Tele Psy Diag Genoal ([id number]) Patient Type New Diagnoses Adjustment disorder with anxious mood in remission F43.22 Problems related to inappropriate diet and eating habits Z72.4 Time Spent (min) 45 Comment Start time: 11:15am, End time: 12pm.
== END ==
LOC: HO.HBST 11:35
PROVIDERS: PCP Internal Medicine; Visit Provider Counselor Mental Health
DX: F43.22 Adjustment disorder with anxiety (principal); Z72.4 Inappropriate diet and eating habits
CPT/HCPCS: 90791

== ENCOUNTER → 2024-04-30 11:35 | Outpatient (BNVA) | payer MEDICARE, SELFPAY | PROVIDERS: PCP Internal Medicine; Visit Provider Counselor Mental Health ==

== ENCOUNTER 2024-05-07 10:19 | Outpatient (AMB) | payer OTHER, MEDICAID, SELFPAY ==
--- NOTE | 2024-05-07 10:29 | MHC.OFFVISWM ---
VS Expanded 05/07/24 10:41 BP 161/70 H Blood Pressure Location Rt brachial Blood Pressure Position Sitting Pulse 62 Pulse Source Pulse Oximeter Temp 99.3 F Temperature Source Temporal Artery Scan Pulse Oximetry 96 Oxygen Delivery Method Room Air Height 5 ft 9 in Weight 323 lb 9.6 oz BMI 47.8 Body Fat % 44.8 Body Fat Mass 144.8 Fat Free Mass 178.6 Visceral Fat Rating 34.0 Body Water % 38.6 Body Water Mass 124.8 Muscle Mass/Score 169.8 Basal Metabolic Rate/Score 2,533 Intake Visit Reasons: (OV) F/U SWL Rf Design Engineer Required: Yes Rf Design Engineer Services: Rf Design Engineer Present Rf Design Engineer Name: hospital clinician oncology Allergies No Known Allergies Allergy (Verified 05/07/24 10:31) Medication List - Last Reconciled 05/07/24 by AKILAH Nicole arm brace (Wrist Support Large-XLarge) As directed blood pressure monitor (Blood Pressure Kit) As directed cholecalciferol (vitamin D3) 50 mcg PO DAILY 90 days [cock up slint wear on each wrist at night ] CPAP (CPAP Machine/Device) As directed docusate sodium 100 mg PO DAILY PRN dronedarone (Multaq) 400 mg PO Q12H famotidine 40 mg PO DAILY fluticasone furoate 50 mcg/actuation (Arnuity Ellipta) 1 inh inhalation Q24H 30 days losartan 100 mg PO DAILY metoprolol tartrate 25 mg PO Q12H omeprazole 40 mg PO DAILY rivaroxaban (Xarelto) 20 mg PO DAILY 90 days rosuvastatin 5 mg PO DAILY@1730 90 days sennosides (senna) 17.2 mg (2 x 8.6 mg) PO DAILY PRN trazodone 50 mg PO BEDTIME PRN 90 days vitamin A palmitate 3,000 mcg PO DAILY 90 days HPI Comments Details: Patient is a 68-year-old male who returns to the office today in follow-up. He was initially seen in the surgical weight loss preoperative clinic on 04/09/2024 with a weight of 336.4 lb and a BMI of 49.7. Weight today is 323.6 lb with a BMI of 47.8. This corresponds to 12.8 lb weight loss or 3.8% total body weight loss. He states that he walked for 3 days in a row, 10 minutes per day but then had significant right knee pain and was unable to do any exercise for a week. He tried to use the right BMI ashley but encountered in error. He is on Xarelto through cardiology for his history of AFib. He does not wish to have the upper endoscopy at this time as he is not sure that this program as the right fit for him. He is going to try for 1 more month. If in fact he does want to continue, we will have his upper endoscopy rescheduled. Meal plan: meal bar 2 rtd constantino can't remember meal, not measuring by forks exercise: walk 10 min 3 x since last visit. [facility] Medical History Numbness and tingling in both hands Bilateral shoulder pain Former smoker History of cardiomyopathy Peptic ulcer disease Shortness of breath Physical exam Obstructive sleep apnea HTN (hypertension) Paroxysmal atrial fibrillation Primary osteoarthritis involving multiple joints Mild asthma Chronic idiopathic constipation Surgical History History of cardioversion History of esophagogastroduodenoscopy (EGD) History of cholecystectomy Family History Mother Diabetes High blood pressure Heart attack Heart problem Father Diabetes Stomach problems Brother Diabetes High blood pressure Stomach problems Paternal Grandmother Lung cancer Sister Cancer Stomach problems Maternal Grandfather Heart problem Maternal Grandmother Heart problem Family/Other Substance use disorder Social History Household Members: Children Housing: Apartment Alcohol intake: never Patient Tobacco Use Status: Former Tobacco user Tobacco use type: Cigarette Cigarettes Per Day: 4 Years Smoked: 10 e-Cigarette/Vaping Use: Never Used Second Hand Smoke Exposure: No service: No Current occupational status: disabled Cognitive needs: Yes Hearing needs: No Vision needs: Yes Physical Exam Const General: healthy appearing and no acute distress Resp Effort & Inspection: normal respiratory effort Auscultation: clear to auscultation bilaterally Cardio Rate: regular rate Rhythm: regular rhythm GI Auscultation: normal bowel sounds Extrem General: Yes normal to inspection Assessment & Plan Assessment & Plan (1) Morbid obesity: Code(s): E66.01 - Morbid (severe) obesity due to excess calories Category: Medical Plan: Discussed the importance of following the meal plan and retrial the ashley. discussed the importance of consistent exercise, at his initial visit, I gave him a paper for discount to the [facility] and he was encouraged to joined. Discussed the opportunity to use the pool to have less weight on his arthritic knees and he states that he will try to join the gym. Discussed the importance of texting weekly. He does not wish to proceed with upper GI on 05/13/2024 at this time. We will have him return to the clinic in approximately 1 month with the understanding that if this is the right fit for him in his he able to consistently follow the meal plan and initiate an exercise plan, we will proceed and reschedule the upper GI, if this is not the right fit for him then we will part ways. He was very appreciative of all the information and will try to adjust accordingly.
[2024-05-07 10:41] VITALS: BP 161/70; PULSE 62; TEMP 37.4; O2SAT 96; BMI 47.8
== END 2024-05-07 10:59 | disposition home or self-care (01) ==
PROVIDERS: PCP Internal Medicine; Visit Provider Physician Assistant Surgical
DX: E66.01 Morbid (severe) obesity due to excess calories (principal)
CPT/HCPCS: 99213

== ENCOUNTER → 2024-05-07 10:19 | Outpatient (BNVA) | payer OTHER, MEDICAID, SELFPAY | PROVIDERS: PCP Internal Medicine; Visit Provider Physician Assistant Surgical ==

== ENCOUNTER 2024-08-04 11:13 | Outpatient (AMB) | payer OTHER, MEDICAID, SELFPAY ==
--- NOTE | 2024-08-04 11:14 | A.OFFVIS_ITS ---
Intake Visit Reasons: 1 yr f/u [phone] Intake Note: Patient presents for follow up Allergies No Known Allergies Allergy (Verified 08/04/24 11:15) Medication List - Last Reconciled 08/04/24 by MICHAEL Adam acetaminophen ER 650 mg PO Q12H PRN 30 days arm brace (Wrist Support Large-XLarge) As directed blood pressure monitor (Blood Pressure Kit) As directed cholecalciferol (vitamin D3) 50 mcg PO DAILY 90 days [cock up slint wear on each wrist at night ] CPAP (CPAP Machine/Device) As directed docusate sodium 100 mg PO DAILY PRN dronedarone (Multaq) 400 mg PO Q12H famotidine 40 mg PO DAILY fluticasone furoate 50 mcg/actuation (Arnuity Ellipta) 1 inh inhalation Q24H 30 days hospital bed As directed losartan 100 mg PO DAILY metoprolol tartrate 25 mg PO Q12H omeprazole 40 mg PO DAILY [recliner As directed] rivaroxaban (Xarelto) 20 mg PO DAILY 90 days rosuvastatin 5 mg PO DAILY@1730 90 days sennosides (senna) 17.2 mg (2 x 8.6 mg) PO DAILY PRN trazodone 50 mg PO BEDTIME PRN 90 days vitamin A palmitate 3,000 mcg PO DAILY 90 days HPI Comments Details: 68-yr-old male presents for follow-up telephone visit. Pt dtr also called. Visit conducted via telephone visit, as patient was unable to utilize tele video technology today. Pt continues to be able to sleep well with CPAP. Pt has not had new supplies in many months, and has been using the same filters for several months. Dtr wonders if this might be contributing to patient recently having more coughing symptoms. Daughter states that she had spoke to somebody in the office, but has not heard anything since. [address], [address] Email: [email or web address] Compliance Report Usage 07/04/2024 - 08/02/2024 Usage days 30/30 days (100%) >= 4 hours 30 days (100%) < 4 hours 0 days (0%) Usage hours 244 hours 51 minutes Average usage (total days) 8 hours 10 minutes Average usage (days used) 8 hours 10 minutes Median usage (days used) 8 hours 9 minutes Total used hours (value since last reset - 08/02/2024) 15,045 hours AirSense 10 AutoSet Serial number [id number] Mode CPAP Set pressure 15 cmH2O EPR Fulltime EPR level 3 Therapy: Leaks - L/min Median: 0.7 95th percentile: 10.8 Maximum: 20.0 Events per hour AI: 1.1 HI: 0.3 AHI: 1.4 PFSH Medical History Numbness and tingling in both hands Bilateral shoulder pain Former smoker History of cardiomyopathy Peptic ulcer disease Shortness of breath Physical exam Obstructive sleep apnea HTN (hypertension) Paroxysmal atrial fibrillation Primary osteoarthritis involving multiple joints Mild asthma Chronic idiopathic constipation Surgical History History of cardioversion History of esophagogastroduodenoscopy (EGD) History of cholecystectomy Family History Mother Diabetes High blood pressure Heart attack Heart problem Father Diabetes Stomach problems Brother Diabetes High blood pressure Stomach problems Paternal Grandmother Lung cancer Sister Cancer Stomach problems Maternal Grandfather Heart problem Maternal Grandmother Heart problem Family/Other Substance use disorder Social History Household Members: Children Housing: Apartment Alcohol intake: never Patient Tobacco Use Status: Former Tobacco user Tobacco use type: Cigarette Cigarettes Per Day: 4 Years Smoked: 10 e-Cigarette/Vaping Use: Never Used Second Hand Smoke Exposure: No service: No Current occupational status: disabled Cognitive needs: Yes Hearing needs: No Vision needs: Yes Physical Exam Const General: cooperative and no acute distress Orientation/consciousness: patient oriented x3 Resp Effort & Inspection: normal respiratory effort and able to speak in complete sentences Neuro General: patient oriented x3 Cognition (Neuro): normal cognition Psych Mental Status: mental status grossly normal Affect: normal affect Attitude: cooperative Telehealth Telehealth Telehealth Platform: Telephone Location of provider rendering services: practice address Location of patient: address on file Patient Identification confirmed using: Name, : Yes Telehealth method: voice only Patient verbally consented to treatment: Yes Patient verbally consented to billing insurance company: Yes Patient informed of any privacy concerns related to visit: Yes Minutes spent on Phone/Video with Pt.: 9 Assessment & Plan Assessment & Plan (1) Obstructive sleep apnea: Code(s): G47.33 - Obstructive sleep apnea (adult) (pediatric) Category: Medical Plan Continue CPAP 15 cmH2O nightly > 4 hours, as pt is tolerating CPAP better and is having good clinical effect from use. Review of chart notes showed that patient likely needs to change respiratory companies as [facility] may no longer take his current insurance. We will initiate order for new CPAP supplies, and submit to a respiratory company within patient's insurance network. Clean CPAP machine and supplies routinely. Change CPAP supplies routinely. Use distilled water in CPAP water reservoir. Pt to contact us or respiratory company with any questions or concerns. Pt to follow-up in 6 months or sooner prn. Coding Level of Care Code Tele Est Pt Level 3 (03184) Diagnoses Obstructive sleep apnea G47.33
== END 2024-08-06 10:58 | disposition home or self-care (01) ==
PROVIDERS: Absent Provider Nurse Practitioner Family; PCP Internal Medicine; Visit Provider Nurse Practitioner Family
DX: G47.33 Obstructive sleep apnea (adult) (pediatric) (principal)
CPT/HCPCS: 98016

== ENCOUNTER → 2024-08-04 11:14 | Outpatient (BNVA) | payer OTHER, MEDICAID, SELFPAY | PROVIDERS: Absent Provider Nurse Practitioner Family; PCP Internal Medicine; Visit Provider Nurse Practitioner Family ==

== ENCOUNTER 2024-09-01 12:21 | Outpatient (AMB) | payer OTHER, MEDICAID, SELFPAY ==
--- NOTE | 2024-09-01 12:21 | A.OFFPC_ITS ---
Intake Visit Reasons: Polyosteoarthritis/ VNA services [phone] Environmental Geologist Required: No Accompanied by: Self / Same As Patient Allergies No Known Allergies Allergy (Verified 09/01/24 12:27) Medication List - Last Reconciled 09/01/24 by Sulma Brock MD acetaminophen ER 650 mg PO Q12H PRN 30 days arm brace (Wrist Support Large-XLarge) As directed blood pressure monitor (Blood Pressure Kit) As directed cholecalciferol (vitamin D3) 50 mcg PO DAILY 90 days [cock up slint wear on each wrist at night ] CPAP (CPAP Machine/Device) As directed docusate sodium 100 mg PO DAILY PRN dronedarone (Multaq) 400 mg PO Q12H famotidine 40 mg PO DAILY fluticasone furoate 50 mcg/actuation (Arnuity Ellipta) 1 inh inhalation Q24H 30 days gabapentin 300 mg PO TID 30 days hospital bed As directed losartan 100 mg PO DAILY metoprolol tartrate 25 mg PO Q12H omeprazole 40 mg PO DAILY [recliner As directed] rivaroxaban (Xarelto) 20 mg PO DAILY rosuvastatin 5 mg PO DAILY@1730 90 days sennosides (senna) 17.2 mg (2 x 8.6 mg) PO DAILY PRN trazodone 50 mg PO BEDTIME PRN 90 days vitamin A palmitate 3,000 mcg PO DAILY 90 days Tobacco use date assessed: 09/01/24 Fall risk assessment: No Falls in past year Last assessed Fall Risk: 09/01/24 Dental Screening Dental Screen Date: 09/01/24 Did you have a dental visit in the last 12 months?: No Did you have a dental problem in the last 6 months where you did not have access to dental care?: No Was dental information given to patient?: Patient has dentist HPI HPI Comments History of Present Illness Details The patient is a 68-year-old male presenting with management of neck pain, knee pain, and low back pain associated with right leg numbness and tingling due to polyosteoarthritis. The patient has a history of essential hypertension, dyslipidemia, and morbid obesity. He also has a significant history of paroxysmal atrial fibrillation, for which he is on chronic anticoagulation. His symptoms of cervical radiculopathy and lumbar degenerative disc disease have been present for some time, with associated poorly managed osteoarthritis requiring nursing services for physical therapy. His blood pressure has remained stable. Current complaints involve persistent neck and knee pain, alongside low back pain radiating to the right leg, accompanied by numbness and tingling, suggestive of sciatica. Treatment with gabapentin was initiated with minor symptomatic relief, and dosing adjustments are required due to the severity of symptoms. Morbid obesity poses a challenge in surgical intervention, and the patient is attempting weight management independently. In desperate need of visiting nurse services due to poly osteoarthritis. [facility] Medical History Numbness and tingling in both hands Bilateral shoulder pain Former smoker History of cardiomyopathy Peptic ulcer disease Shortness of breath Physical exam Obstructive sleep apnea HTN (hypertension) Paroxysmal atrial fibrillation Primary osteoarthritis involving multiple joints Mild asthma Chronic idiopathic constipation Surgical History History of cardioversion History of esophagogastroduodenoscopy (EGD) History of cholecystectomy Family History Mother Diabetes High blood pressure Heart attack Heart problem Father Diabetes Stomach problems Brother Diabetes High blood pressure Stomach problems Paternal Grandmother Lung cancer Sister Cancer Stomach problems Maternal Grandfather Heart problem Maternal Grandmother Heart problem Family/Other Substance use disorder Social History Household Members: Children Housing: Apartment Alcohol intake: never Patient Tobacco Use Status: Former Tobacco user Tobacco use type: Cigarette Cigarettes Per Day: 4 Years Smoked: 10 e-Cigarette/Vaping Use: Never Used Second Hand Smoke Exposure: No service: No Current occupational status: disabled Cognitive needs: Yes Hearing needs: No Vision needs: Yes Questionnaire PHQ-9 Over the last 2 weeks, how often have you been bothered by any of the following problems? 1. Little interest or pleasure in doing things: not at all 2. Feeling down, depressed, or hopeless: not at all 3. Trouble falling or staying asleep, or sleeping too much: not at all 4. Feeling tired or having little energy: not at all 5. Poor appetite or overeating: not at all 6. Feeling bad about yourself - or that you are a failure or have let yourself or your family down: not at all 7. Trouble concentrating on things, such as reading the newspaper or watching television: not at all 8. Moving or speaking so slowly that other people could have noticed. Or the opposite - being so fidgety or restless that you have been moving around a lot more than usual: not at all 9. Thoughts that you would be better off or of hurting yourself in some way: not at all Total score: 0 Depression Screening Interpretation: Negative Depression Screening Done: Yes 10110 - PHQ-9 Billing: Yes Source: Developed by Drs. Trenton Saenz, Antonette Fraser, Malcolm Dias and colleagues, with an educational andi from [employer]. Thrive Questionnaire Date Thrive assessed: 09/01/24 I am a: Patient What is your living situation today?: I have a steady place to live Within the past 12 months, did the food you bought not last and you didn't have the money to get more?: Never true Within the past 12 months, did you worry whether your food would run out before you got money to buy more?: Never true Do you have trouble paying for medicines?: No Do you have trouble getting transportation to medical appointments?: No Do you have trouble paying your heating and electricity bill?: No Do you have trouble taking care of your child, family member or friend?: No Do you have trouble with day-to-day activities such as bathing, preparing meals, shopping, managing finances, etc.?: No Are you currently unemployed and looking for a job?: No Are you interested in more education?: No Please select the resources that you would like help with: None Currently or been in a relationship where the following occur: No concerns reported THRIVE Score: 0 AUDIT C Alcohol Use Questionnaire (AUDIT-C) 1. How often do you have a drink containing alcohol?: Never Total Score: 0 Score Reviewed/Action Taken: No CHALO-7 AMB Questionnaire CHALO-7 Date CHALO - 7 assessed: 09/01/24 Feeling nervous, anxious, or on edge: 0 = Not at all Not being able to stop or control worryin = Not at all Worrying too much about different things: 0 = Not at all Trouble relaxin = Not at all Being so restless that it is hard to sit still: 0 = Not at all Becoming easily annoyed or irritable: 0 = Not at all Feeling afraid as if something awful might happen: 0 = Not at all Total CHALO-7 score (0-4 normal; 5-9 mild; 10-14 moderate; 15-21 severe): 0 Source: Developed by Drs. Trenton Saenz, Antonette Fraser, Malcolm Dias and colleagues, with an educational andi from [employer]. CHALO-7 Assessment Billing CHALO-7 Assessment Tool: CHALO-7 Assessment 88801 Review of Systems Const All systems reviewed & are unremarkable except as noted in HPI and below ENT Reports neck pain Card Denies chest pain at rest, Denies chest pain with activity, Denies edema, Denies irregular heart rhythm, Denies claudication, Denies dyspnea, Denies dyspnea on exertion, Denies orthopnea, Denies paroxysmal nocturnal dyspnea and Denies slow heart rate Resp Denies cough, Denies dyspnea and Denies dyspnea on exertion Musc Reports back pain, Reports arthralgias, Reports neck pain, Reports numbness, Reports radiating pain into limb and Reports tingling Neuro Reports numbness and Reports tingling Physical exam (Primary Care) BMI Assessment/Plan discussion: High BMI High, discussed plan: lifestyle, weight reduction, dietary and physical activity Tobacco/Smoking Status: Tobacco use Status Tobacco use date assessed 09/01/24 09/01/24 12:26 Patient Tobacco Use Status Former Tobacco user 09/01/24 12:25 Tobacco use type Cigarette 09/01/24 12:25 e-Cigarette/Vaping Use Never Used 09/01/24 12:25 Depression Screening Interpretation: Negative Thrive Assessment: Date of Thrive Assessment Date Thrive assessed 10/29/23 09/01/24 12:25 Currently or been in a relationship where the following occur: No concerns reported Extrem General: Yes full ROM Psych Affect: normal affect Telehealth Telehealth Telehealth Platform: Telephone Location of provider rendering services: practice address Location of patient: address on file Patient Identification confirmed using: Name, : Yes Telehealth method: video Patient verbally consented to treatment: Yes Patient verbally consented to billing insurance company: Yes Patient informed of any privacy concerns related to visit: Yes Minutes spent on Phone/Video with Pt.: 15 Coding Level of Care Code Tele Est Pt Level 4 (83890) Complex EM visit Add On G2211 Diagnoses Degeneration of intervertebral disc of lumbar region with discogenic back pain and lower extremity pain M51.362 Disc-related pain type: discogenic back pain and lower extremity pain Essential hypertension I10 Dyslipidemia E78.5 Primary osteoarthritis of both knees M17.0 Osteoarthritis type: primary Right cervical radiculopathy M54.12 Morbid obesity E66.01 Paroxysmal atrial fibrillation I48.0 Infrarenal abdominal aortic aneurysm (AAA) without rupture I71.43 Abdominal aorta location: infrarenal aorta Presence of rupture: without rupture Additional Codes PHQ-9 - 81635 - PHQ-9 Billing: Yes ([id number]) CHALO-7 Assessment Billing - CHALO-7 Assessment Tool: CHALO-7 Assessment 92442 ([id number]) Time Spent (min) 15 Assessment & Plan Assessment & Plan (1) Lumbar degenerative disc disease: Code(s): M51.369 - Other intervertebral disc degeneration, lumbar region without mention of lumbar back pain or lower extremity pain Category: Medical Qualifiers: Disc-related pain type: discogenic back pain and lower extremity pain Qualified Code(s): M51.362 - Other intervertebral disc degeneration, lumbar region with discogenic back pain and lower extremity pain (2) Essential hypertension: Code(s): I10 - Essential (primary) hypertension Category: Medical (3) Dyslipidemia: Code(s): E78.5 - Hyperlipidemia, unspecified Category: Medical (4) Osteoarthritis of knees, bilateral: Code(s): M17.0 - Bilateral primary osteoarthritis of knee Category: Medical Qualifiers: Osteoarthritis type: primary Qualified Code(s): M17.0 - Bilateral primary osteoarthritis of knee (5) Right cervical radiculopathy: Code(s): M54.12 - Radiculopathy, cervical region Category: Medical (6) Morbid obesity: Code(s): E66.01 - Morbid (severe) obesity due to excess calories Category: Medical (7) Paroxysmal atrial fibrillation: Code(s): I48.0 - Paroxysmal atrial fibrillation Category: Medical (8) Abdominal aortic aneurysm: Code(s): I71.40 - Abdominal aortic aneurysm, without rupture, unspecified Category: Medical Qualifiers: Abdominal aorta location: infrarenal aorta Presence of rupture: without rupture Qualified Code(s): I71.43 - Infrarenal abdominal aortic aneurysm, without rupture Plan - Increase gabapentin dosage from 100 mg at bedtime to 300 mg three times a day to better manage neuropathic pain related to cervical radiculopathy and sciatica. - Continue physical therapy and visiting nurse services to aid in managing osteoarthritis and improve mobility. - Emphasize weight management to address morbid obesity, considering the limitations posed by the inability to undergo surgery due to chronic anticoagulation for atrial fibrillation. Patient was informed and verbally consented to the use of an ambient scribe for clinic note documentation during this visit. We discussed with the patient the adjustment of gabapentin dosage for better management of pain and neuropathic symptoms. The risks and benefits of increased gabapentin usage were explored, assuring the patient of its potential efficacy despite previous challenges with symptoms. Surgical options were deemed unfeasible given the patient?s anticoagulation status for atrial fibrillation. Weight management strategies were encouraged, underscoring the importance of addressing obesity as a means to alleviate musculoskeletal strain. We also reviewed the necessity of continued visiting nurse services for ongoing physical therapy requirements and general mobility improvement. Medications: New gabapentin 300 mg PO TID 30 days 90 caps 3RF Discontinued gabapentin Discontinued Reason: Patient Completed Course 100 mg PO BEDTIME 30 days 30 caps 0RF Patient Instructions: - Take gabapentin 300 mg three times a day as prescribed. - Continue engaging with visiting nursing services for physical therapy. - Focus on weight management strategies and follow any dietary or exercise recommendations. - Report any changes in symptoms or adverse effects immediately.
--- OUTSIDE RECORDS SUMMARY | 2024-09-01 12:43 | XMS_ITS | Clinical Summary ---
Author Organization Unknown Care Team Providers Care Axle And Frame Mechanic Name Role Phone SUELLEN CHRISTIANSON MD, GEOVANNY Unavailable Unavailable TATI RN, ADMISSION NURSE, AYLIN Unavail able Unavailable TRUPTI OT, VERONICA Unavailable Unavaildang SARAVIA PT, WARNER Unavailable Unavailable TARDY STAVE MACHINE TENDER, OLEG Unavailable Unavailable [facility], SHUBHAM Unavailable Samantha saenz Payers Payer Name Policy Type Policy Number Effective Date Expira tion Date [employer] MANAGED MEDICARE - [facility] [id number] [place]ID [place] - [place] [id number] Problems Condition Name Condition Details Condition Category Status Onset Date Resolution Date Last Treatment Date Treating Clinician Comments POLYOSTEOART HRITIS, UNSPECIFIED Active 07-14 00:00: 00 PAROXYSMAL ATRIAL FIBRILLATION Active 07-14 00:00: 00 ESSENTIAL (PRIMARY) HYPERTENSION Active 07-14 00:00: 00 MORBID (SEVERE) OBESITY DUE TO EXCESS CALORIES Active 07-14 00:00: 00 BODY MASS INDEX [BMI] 60.0-69.9, ADULT Active 07-14 00:00: 00 PERIPHERAL VASCULAR DISEASE, UNSPECIFIED Active 07-14 00:00: 00 INFRARENAL ABDOMINAL AORTIC ANEURYSM, WITHOUT RUPTURE Active 07-14 00:00: 00 CHRONIC IDIOPATHIC CONSTIPATION Active 07-14 00:00: 00 PERSONAL HISTORY OF NICOTINE DEPENDENCE Active 07-14 00:00: 00 HYPERLIPIDEM IA, UNSPECIFIED Active 07-14 00:00: 00 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 Ordering Clinician Indication Dosage Frequency Signature (SIG) Comments Components metoprolol tartrate 25 mg tablet 08-02 00:00: 00 Yes [id number] 1 tablet 2 TIMES DAILY 1 tablet 2 TIMES DAILY (route: oral) Med Classific ation: Cardiovas cular Therapy Agents Multaq 400 mg tablet 08-02 00:00: 00 Yes [id number] 1 tablet EVERY 12 HOURS 1 tablet EVERY 12 HOURS (route: oral) Med Classific ation: Cardiovas cular Therapy Agents rosuvastati n 5 mg tablet 08-02 00:00: 00 Yes [id number] 1 tablet DAILY 1 tablet DAILY (route: oral) Med Classific ation: Cardiovas cular Therapy Agents acetaminoph en ER 650 mg tablet,exte nded release 07-19 00:00: 00 Yes [id number] 1 tablet NEEDED 1 tablet NEEDED (route: oral) Med Classific ation: Analgesic , Anti-infl ammatory or Antipyret ic losartan 100 mg tablet 08-08 00:00: 00 Yes [id number] 1 tablet DAILY 1 tablet DAILY (route: oral) Med Classific ation: Cardiovas cular Therapy Agents Pepcid 40 mg tablet 08-08 00:00: 00 Yes [id number] 1 tablet DAILY 1 tablet DAILY (route: oral) Med Classific ation: Gastroint estinal Therapy Agents Vitamin D3 50 mcg (2,000 unit) capsule 08-08 00:00: 00 Yes [id number] 1 capsule DAILY 1 capsule DAILY (route: oral) Med Classific ation: Electroly te Balance-N utritiona l Products Xarelto 20 mg tablet 08-08 00:00: 00 Yes [id number] 1 tablet DAILY 1 tablet DAILY (route: oral) Med Classific ation: Hematolog ical Agents gabapentin 100 mg capsule 08-12 00:00: 00 Yes [id number] 1 capsule BEDTIME 1 capsule BEDTIME (route: oral) Med Classific ation: Central Nervous System Agents Immunizations Ordered Immunization Name Filled Immunization Name Date Status Comments Refusal Reason COVID-19, COVID-19 2024-08-08 00:00:00 Vital Signs Vital Name Observation Time Observation Value Commen ts Temperature 2024-08-31 11:29:00.000 97.3 [degF] Temperature 2024-08-25 10:07:00.000 97.6 [degF] Temperature 2024-08-18 11:43:00.000 97.2 [degF] Temperature 2024-08-16 12:23:00.000 98.5 [degF] Temperature 2024-08-12 13:59:00.000 97.2 [degF] Temperature 2024-08-11 11:14:00.000 97.4 [degF] Temperature 2024-08-08 10:50:00.000 97.5 [degF] BMI (%) 2024-08-08 10:50:00.000 44 kg/m2 Height 2024-08-08 10:50:00.000 71 [in_us] Pulse 2024-08-31 11:29:00.000 56 /min Pulse 2024-08-25 10:07:00.000 60 /min Pulse 2024-08-24 13:20:00.000 76 /min Pulse 2024-08-18 11:43:00.000 60 /min Pulse 2024-08-16 12:23:00.000 60 /min Pulse 2024-08-12 13:59:00.000 74 /min Pulse 2024-08-11 11:14:00.000 60 /min Pulse 2024-08-10 11:22:00.000 78 /min Pulse 2024-08-08 10:50:00.000 72 /min O2 Saturation (%) 2024-08-31 11:29:00.000 97 % O2 Saturation (%) 2024-08-25 10:07:00.000 97 % O2 Saturation (%) 2024-08-24 13:20:00.000 99 % O2 Saturation (%) 2024-08-18 11:43:00.000 97 % O2 Saturation (%) 2024-08-16 12:23:00.000 96 % O2 Saturation (%) 2024-08-12 13:59:00.000 97 % O2 Saturation (%) 2024-08-11 11:14:00.000 96 % O2 Saturation (%) 2024-08-10 11:22:00.000 98 % O2 Saturation (%) 2024-08-08 10:51:00.000 95 % Respirations 2024-08-31 11:29:00.000 18 /min Respirations 2024-08-25 10:07:00.000 18 /min Respirations 2024-08-18 11:43:00.000 18 /min Respirations 2024-08-16 12:23:00.000 18 /min Respirations 2024-08-12 13:59:00.000 18 /min Respirations 2024-08-11 11:14:00.000 18 /min Respirations 2024-08-08 10:50:00.000 18 /min Weight (lbs) 2024-08-11 11:37:00.000 319.9 [lb_av] Weight (lbs) 2024-08-08 10:50:00.000 318 [lb_av] Systolic Blood Pressure 2024-08-31 11:29:00.000 112 mm [Hg] Systolic Blood Pressure 2024-08-25 10:07:00.000 124 mm [Hg] Systolic Blood Pressure 2024-08-24 13:20:00.000 122 mm [Hg] Systolic Blood Pressure 2024-08-18 11:43:00.000 114 mm [Hg] Systolic Blood Pressure 2024-08-16 12:23:00.000 122 mm [Hg] Systolic Blood Pressure 2024-08-12 13:59:00.000 120 mm [Hg] Systolic Blood Pressure 2024-08-11 11:14:00.000 122 mm [Hg] Systolic Blood Pressure 2024-08-10 11:22:00.000 122 mm [Hg] Systolic Blood Pressure 2024-08-08 10:50:00.000 140 mm [Hg] Diastolic Blood Pressure 2024-08-31 11:29:00.000 62 mm [Hg] Diastolic Blood Pressure 2024-08-25 10:07:00.000 80 mm [Hg] Diastolic Blood Pressure 2024-08-24 13:20:00.000 74 mm [Hg] Diastolic Blood Pressure 2024-08-18 11:43:00.000 62 mm [Hg] Diastolic Blood Pressure 2024-08-16 12:23:00.000 72 mm [Hg] Diastolic Blood Pressure 2024-08-12 13:59:00.000 72 mm [Hg] Diastolic Blood Pressure 2024-08-11 11:14:00.000 72 mm [Hg] Diastolic Blood Pressure 2024-08-10 11:22:00.000 70 mm [Hg] Diastolic Blood Pressure 2024-08-08 10:50:00.000 80 mm [Hg] Plan of Treatment Planned Activity Planned Date Details Comments Future Scheduled Test SKILLED NU RSE TO EVALUATE PATIENT, IDENTIFY PRIMARY AND CO-MORBID CONDITIONS CODED PER CODING GUIDELINES, AND DEVELOP PATIENT SPECIFIC PLAN OF CARE THAT INCLUDES PATIENT GOAL FOR HOME HEALTH. [code = SKILLED NURSE TO EVALUATE PATIENT, IDENTIFY PRIMARY AND CO-MORBID CONDITIONS CODED PER CODING GUIDELINES, AND DEVELOP PATIENT SPECIFIC PLAN OF CARE THAT INCLUDES PATIENT GOAL FOR HOME HEALTH.] Future Scheduled Test SKILLED NU RSE TO REVIEW PATIENT MEDICATIONS. INSTRUCT PATIENT/CAREGIVER ON MONITORING OF EFFECTIVENESS, ADVERSE DRUG REACTIONS, SIDE EFFECTS OF ALL MEDICATIONS (PRESCRIPTION/-OTC), AND HOW AND WHEN TO REPORT PROBLEMS. [code = SKILLED NURSE TO REVIEW PATIENT MEDICATIONS. INSTRUCT PATIENT/CAREGIVER ON MONITORING OF EFFECTIVENESS, ADVERSE DRUG REACTIONS, SIDE EFFECTS OF ALL MEDICATIONS (PRESCRIPTION/-OTC), AND HOW AND WHEN TO REPORT PROBLEMS.] Future Scheduled Test SKILLED NU RSE FOR O/A, TEACHING, AND MANAGEMENT OF CARDIOMYOPATHY. [code = SKILLED NURSE FOR O/A, TEACHING, AND MANAGEMENT OF CARDIOMYOPATHY.] Future Scheduled Test OCCUPATION AL THERAPIST TO EVALUATE PATIENT FOR SAFETY EVAL [code = OCCUPATIONAL THERAPIST TO EVALUATE PATIENT FOR SAFETY EVAL] Future Scheduled Test MEDICAL SO CIAL WORKER TO EVALUATE PATIENT FOR AVAILABLE SERVICES [code = POLYSTYRENE MOLDING MACHINE TENDER TO EVALUATE PATIENT FOR AVAILABLE SERVICES] Future Scheduled Test SKILLED NU RSE FOR O/A OF RESPIRATORY SYSTEM TO IDENTIFY CHANGES ASSOCIATED WITH EXACERBATION AND TO PROVIDE SKILLED TEACHING ON MANAGEMENT OF LETICIA (ON CPAP), ASTHMA PROCESS. [code = SKILLED NURSE FOR O/A OF RESPIRATORY SYSTEM TO IDENTIFY CHANGES ASSOCIATED WITH EXACERBATION AND TO PROVIDE SKILLED TEACHING ON MANAGEMENT OF LETICIA (ON CPAP), ASTHMA PROCESS.] Future Scheduled Test SKILLED NU RSE FOR O/A AND SKILLED TEACHING IN MANAGEMENT OF PVD, ANEURYSM DISEASE. [code = SKILLED NURSE FOR O/A AND SKILLED TEACHING IN MANAGEMENT OF PVD, ANEURYSM DISEASE.] Future Scheduled Test PHYSICAL T HERAPIST TO EVALUATE PATIENT FOR EXERCISE [code = PHYSICAL THERAPIST TO EVALUATE PATIENT FOR EXERCISE] Future Scheduled Test SKILLED NU RSE TO INSTRUCT PATIENT/CAREGIVER ON SIGNS AND SYMPTOMS, RISK FACTORS, COMPLICATIONS, AND MANAGEMENT OF ATRIAL FIBRILLATION. [code = SKILLED NURSE TO INSTRUCT PATIENT/CAREGIVER ON SIGNS AND SYMPTOMS, RISK FACTORS, COMPLICATIONS, AND MANAGEMENT OF ATRIAL FIBRILLATION.] Future Scheduled Test SKILLED NU RSE TO PROVIDE TEACHING ON SIGNS AND SYMPTOMS AND MANAGEMENT OF HYPERTENSION. [code = SKILLED NURSE TO PROVIDE TEACHING ON SIGNS AND SYMPTOMS AND MANAGEMENT OF HYPERTENSION.] Future Scheduled Test SKILLED NU RSE FOR O/A AND SKILLED TEACHING RELATED TO ALTERED SKIN INTEGRITY [code = SKILLED NURSE FOR O/A AND SKILLED TEACHING RELATED TO ALTERED SKIN INTEGRITY ] Future Scheduled Test SKILLED NU RSE FOR O/A AND SKILLED TEACHING RELATED TO SIGNS AND SYMPTOMS AND MANAGEMENT OF OA. [code = SKILLED NURSE FOR O/A AND SKILLED TEACHING RELATED TO SIGNS AND SYMPTOMS AND MANAGEMENT OF OA.] Future Scheduled Test PATIENT NAVA S A RISK OF HOSPITALIZATION AND ED USE. SKILLED NURSE TO ESTABLISH SUPPORT MEASURES TO MINIMIZE RISK OF HOSPITALIZATION AND ED USE, AND INSTRUCT PATIENT/CAREGIVER ON METHODS TO REDUCE AVOIDABLE HOSPITALIZATION AND ED USE. [code = PATIENT HAS A RISK OF HOSPITALIZATION AND ED USE. SKILLED NURSE TO ESTABLISH SUPPORT MEASURES TO MINIMIZE RISK OF HOSPITALIZATION AND ED USE, AND INSTRUCT PATIENT/CAREGIVER ON METHODS TO REDUCE AVOIDABLE HOSPITALIZATION AND ED USE.] Future Scheduled Test SKILLED NU RSE TO PROVIDE INSTRUCTION TO PATIENT/CAREGIVER RELATED TO DISCHARGE PLANNING. [code = SKILLED NURSE TO PROVIDE INSTRUCTION TO PATIENT/CAREGIVER RELATED TO DISCHARGE PLANNING.] Future Scheduled Test SKILLED NU RSE TO PERFORM ENVIRONMENTAL SAFETY RISK ASSESSMENT AND FALL RISK ASSESSMENT AND PROVIDE INSTRUCTION TO IMPLEMENT ENVIRONMENTAL SAFETY AND FALL PREVENTION STRATEGIES THROUGHOUT THE CERTIFICATION PERIOD. SKILLED NURSE WILL MAINTAIN SITUATIONAL AWARENESS AND WILL NOTIFY CLINICAL LICENSED FUNERAL DIRECTOR AND PHYSICIAN/PROVIDER WITH ANY CHANGE IN CONDITION. [code = SKILLED NURSE TO PERFORM ENVIRONMENTAL SAFETY RISK ASSESSMENT AND FALL RISK ASSESSMENT AND PROVIDE INSTRUCTION TO IMPLEMENT ENVIRONMENTAL SAFETY AND FALL PREVENTION STRATEGIES THROUGHOUT THE CERTIFICATION PERIOD. SKILLED NURSE WILL MAINTAIN SITUATIONAL AWARENESS AND WILL NOTIFY CLINICAL LICENSED FUNERAL DIRECTOR AND PHYSICIAN/PROVIDER WITH ANY CHANGE IN CONDITION.] Future Scheduled Test SKILLED NU RSE FOR OBSERVATION AND ASSESSMENT OF PATIENTS PAIN LEVEL AND EFFECTIVENESS OF PAIN MANAGEMENT REGIMEN. SKILLED NURSE TO INSTRUCT PATIENT/CAREGIVER REGARDING PHARMACOLOGIC AND NON-PHARMACOLOGIC PAIN CONTROL MEASURES. SKILLED NURSE TO REPORT TO PHYSICIAN IF PAIN IS UNCONTROLLED WITH CURRENT PAIN MANAGEMENT REGIMEN. [code = SKILLED NURSE FOR OBSERVATION AND ASSESSMENT OF PATIENTS PAIN LEVEL AND EFFECTIVENESS OF PAIN MANAGEMENT REGIMEN. SKILLED NURSE TO INSTRUCT PATIENT/CAREGIVER REGARDING PHARMACOLOGIC AND NON-PHARMACOLOGIC PAIN CONTROL MEASURES. SKILLED NURSE TO REPORT TO PHYSICIAN IF PAIN IS UNCONTROLLED WITH CURRENT PAIN MANAGEMENT REGIMEN.] Future Scheduled Test SKILLED NU RSE TO ASSESS PATIENT'S SKIN INTEGRITY AND INSTRUCT PATIENT/CAREGIVER ON MEASURES TO PREVENT PRESSURE ULCERS. [code = SKILLED NURSE TO ASSESS PATIENT'S SKIN INTEGRITY AND INSTRUCT PATIENT/CAREGIVER ON MEASURES TO PREVENT PRESSURE ULCERS.] Future Scheduled Test MEDICAL SO CIAL SERVICES FOR EVALUATION TO ASSESS SOCIAL AND EMOTIONAL FACTORS RELATED TO THE PATIENT'S ILLNESS, NEED FOR CARE, RESPONSE TO TREATMENT AND ADJUSTMENT TO CARE; TO BE FOLLOWED BY COLLABORATION WITH THE PHYSICIAN AND NURSE TO DEVELOP A PLAN OF CARE SUMMARY OF STAVE MACHINE TENDER EVAL/ASSESSMENT FINDINGS AND REASON(S) PATIENT SERVICES ASSISTANT IS INDICATED: STAVE MACHINE TENDER EVALUATION: LISA IS A 68 YEAR OLD MALE REFERRED TO [facility] BY HIS PCP DUE TO RECENT INCREASED PAIN AND WEAKNESS IN BACK AND LEGS. PATIENT UNABLE TO AMBULATE. STAVE MACHINE TENDER FACILITATED COMMUNITY RESOURCE ASSESSMENT AND LTC PLANNING ASSESSMENT. ENVIRONMENT: LISA LIVES IN A APARTMENT WITH HIS DAUGHTER AND TWO GRANDCHILDREN. DAUGHTER JACKLYN IS HIS PRIMARY CAREGIVER AND WOOD PILER. DAUGHTER DOES ALL PERSONAL CARE AND HOMEMAKING TASKS. LSIA HAS ADVANCED DIRECTIVES IN PLACE. PRESENTATION: LISA IS ALERT AND ORIENTED WITH SOME FORGETFULNESS. LISA IS MOSTLY ARABIC SPEAKING. DAUGHTER TRANSLATED FOR VISIT. RASHIDA MOOD IS STABLE AND NO SYMPTOMS OF DEPRESSION AND ANXIETY. LISA HAS NO CURRENT ETOH OR SUBSTANCE ABUSE ISSUES. INTERVENTION: LISA AND HIS DAUGHTER ARE HAVING ISSES WITH [facility] [employer] [facility]. THEY NEED TO MOVE INTO A HANDICAPP ACCESSIBLE APARTMENT THAT HAS SPACE FOR THE WHOLE FAMILY. DAUGHTER REPORTS SHES HAVING PROBLEMS GETTING APPROVED FOR HOUSING THAT FITS THE WHOLE FAMILY. STAVE MACHINE TENDER CALLED [employer] [facility] [employer] [employer] AND LEFT A MESSAGE TO FOLLOW UP AND DETERMINE A PLAN. STAVE MACHINE TENDER PLANS TO FOLLOW UP 1 X FOR FURTHER RESOURCE SUPPORT. MEDICAL GRAPE CRUSHER FOR COMMUNITY RESOURCE PLANNING. [code = MEDICAL GRAPE CRUSHER FOR EVALUATION TO ASSESS SOCIAL AND EMOTIONAL FACTORS RELATED TO THE PATIENT'S ILLNESS, NEED FOR CARE, RESPONSE TO TREATMENT AND ADJUSTMENT TO CARE; TO BE FOLLOWED BY COLLABORATION WITH THE PHYSICIAN AND NURSE TO DEVELOP A PLAN OF CARE SUMMARY OF STAVE MACHINE TENDER EVAL/ASSESSMENT FINDINGS AND REASON(S) PATIENT SERVICES ASSISTANT IS INDICATED: STAVE MACHINE TENDER EVALUATION: LISA IS A 68 YEAR OLD MALE REFERRED TO [facility] BY HIS PCP DUE TO RECENT INCREASED PAIN AND WEAKNESS IN BACK AND LEGS. PATIENT UNABLE TO AMBULATE. STAVE MACHINE TENDER FACILITATED COMMUNITY RESOURCE ASSESSMENT AND LTC PLANNING ASSESSMENT. ENVIRONMENT: LISA LIVES IN A APARTMENT WITH HIS DAUGHTER AND TWO GRANDCHILDREN. DAUGHTER JACKLYN IS HIS PRIMARY CAREGIVER AND WOOD PILER. DAUGHTER DOES ALL PERSONAL CARE AND HOMEMAKING TASKS. LISA HAS ADVANCED DIRECTIVES IN PLACE. PRESENTATION: LISA IS ALERT AND ORIENTED WITH SOME FORGETFULNESS. LISA IS MOSTLY ARABIC SPEAKING. DAUGHTER TRANSLATED FOR VISIT. RASHIDA MOOD IS STABLE AND NO SYMPTOMS OF DEPRESSION AND ANXIETY. LISA HAS NO CURRENT ETOH OR SUBSTANCE ABUSE ISSUES. INTERVENTION: LISA AND HIS DAUGHTER ARE HAVING ISSES WITH [facility] [facility] HOUSING. THEY NEED TO MOVE INTO A HANDICAPP ACCESSIBLE APARTMENT THAT HAS SPACE FOR THE WHOLE FAMILY. DAUGHTER REPORTS SHES HAVING PROBLEMS GETTING APPROVED FOR HOUSING THAT FITS THE WHOLE FAMILY. STAVE MACHINE TENDER CALLED [facility] [facility] AND LEFT A MESSAGE TO FOLLOW UP AND DETERMINE A PLAN. STAVE MACHINE TENDER PLANS TO FOLLOW UP 1 X FOR FURTHER RESOURCE SUPPORT. MEDICAL GRAPE CRUSHER FOR COMMUNITY RESOURCE PLANNING.] Future Scheduled Test OCCUPATION AL THERAPIST TO EVALUATE PATIENT SECONDARY TO FUNCTIONAL DEFICITS/SAFETY CONCERNS IDENTIFIED DURING EVALUATION OCCUPATIONAL THERAPY TO ESTABLISH /UPGRADE/DOWNGRADE THERAPEUTIC EXERCISE PROGRAM AND INSTRUCT PATIENT/CAREGIVER ON EXERCISE PRECAUTIONS WITH WRITTEN HOME PROGRAM. MAY INCLUDE PROM, AAROM, AROM, RROM APPROPRIATE TO IMPROVE FUNCTIONAL STRENGTH AND/OR RANGE OF MOTION. OCCUPATIONAL THERAPY TO INSTRUCT PATIENT/CAREGIVER ON SAFE TRANSFER TECHNIQUES USING PROPER BODY MECHANICS AND EQUIPMENT TO ENHANCE PARTICIPATION IN ADLS. OCCUPATIONAL THERAPY TO ASSESS AND RECOMMEND HOME SAFETY ADAPTATIONS AND EDUCATE PATIENT /CAREGIVER ON FALL PREVENTION STRATEGIES TO ENHANCE PARTICIPATION IN ADLS. SUMMARY OF THERAPY EVAL/ASSESSMENT FINDINGS AND REASON(S) SKILLS OF A THERAPIST ARE INDICATED: OT EVALUATION (08/10/24) PATIENT IS A 68-YEAR-OLD MALE REFERRED BY PCP FOR OT SERVICES DUE TO DECLINE IN FUNCTIONAL STATUS AND ADLS. PATIENT WITH NEW ONSET SIGNIFICANT LOWER BACK AND EXTREMITY PAIN IMPACTING PATIENT'S ABILITY TO WALK AND PERFORM ADLS. PAST MEDICAL HISTORY OF AFIB, HTN , OBESITY, OSTEOARTHITIS, SLEEP APNEA, HYPERLIPIDEMIA. PRIOR LEVEL OF FUNCTION: PATIENT LIVES WITH DAUGHTER IN DUPLEX STYLE APARTMENT. BEDROOM BATHROOM ON THE SECOND FLOOR OF HOME. PATIENT AMBULATED WITH CANE AND WAS ABLE TO PERFORM FUNCTIONAL TRANSFERS INDEPENDENTLY HOWEVER HAS WOOD PILER SERVICES FOR ADLS AND IADLS. CURRENT LEVEL OF FUNCTION: PATIENT SEEN AND PRESENTS WITH DAUGHTER FOR EVALUATION. PATIENT SITTING COMFORTABLY IN A CHAIR. HE IS ABLE TO PERFORM A [id number] TRANSFER BUT WITH PAIN IN THE LEFT LOWER EXTREMITY GREATER THAN THE RIGHT. HE IS AMBULATING WITH A CANE WITHIN THE HOME HOWEVER STAYING ON THE SECOND FLOOR STAIRS HAVE PROVEN TOO DIFFICULT FOR HIM TO NAVIGATE AT THIS TIME. DAUGHTER IS ASSISTING WITH ALL ACTIVITIES INCLUDING SHOWER LEVEL BATHING DRESSING. THE ONLY THING SHE IS NOT ASSISTING WITH PATIENT WILL NOT LET HER IS TOILETING THERE USING A GALLON JUG CUTOUT A URINAL AND PATIENT IS TRYING TO PERFORM BOWEL MOVEMENT CARE WITHOUT ASSISTANCE. HE IS DEPENDENT FOR ALL ASPECTS OF IADLS AT THIS TIME. HAS DIFFICULTY GETTING IN AND OUT OF BED AND EDUCATION WAS PROVIDED TODAY TO PERFORM LOG ROLLING TECHNIQUE USING HIS BED RAIL. DUE TO HIS PAIN LEVELS AND WOOZY FEELING AFTER STARTING GABAPENTIN LAST EVENING HE DECLINED TO RETURN DEMO HOWEVER DAUGHTER WAS EDUCATED AND ABLE TO RETURN DEMO APPROPRIATELY. PATIENT DEMOS WITHIN FUNCTIONAL LIMITS RANGE OF MOTION BOTH UPPER EXTREMITIES HOWEVER STRENGTH IMPAIRED WITH STRENGTH TESTING INCREASED PAIN IN HIS BACK AREA. PAIN RATED 7-8/10 PARTICULARLY WITH WEIGHTBEARING. ASSESSMENT/POC: OCCUPATIONAL THERAPY EVALUATION COMPLETED TODAY WITH RECOMMENDATION FOR SKILLED OT SERVICES TO ADDRESS SAFETY WITH ADLS AND FUNCTIONAL TRANSFERS WELL ENDURANCE AND STRENGTH BUILDING. PATIENT AND CAREGIVER IN AGREEMENT WITH 1 TIME A WEEK X4. NOTIFIED OF OT EVAL AND PLAN OF CARE. PATIENT HAS FOLLOW UP THIS WEEK WITH PC. [code = OCCUPATIONAL THERAPIST TO EVALUATE PATIENT SECONDARY TO FUNCTIONAL DEFICITS/SAFETY CONCERNS IDENTIFIED DURING EVALUATION OCCUPATIONAL THERAPY TO ESTABLISH /UPGRADE/DOWNGRADE THERAPEUTIC EXERCISE PROGRAM AND INSTRUCT PATIENT/CAREGIVER ON EXERCISE PRECAUTIONS WITH WRITTEN HOME PROGRAM. MAY INCLUDE PROM, AAROM, AROM, RROM APPROPRIATE TO IMPROVE FUNCTIONAL STRENGTH AND/OR RANGE OF MOTION. OCCUPATIONAL THERAPY TO INSTRUCT PATIENT/CAREGIVER ON SAFE TRANSFER TECHNIQUES USING PROPER BODY MECHANICS AND EQUIPMENT TO ENHANCE PARTICIPATION IN ADLS. OCCUPATIONAL THERAPY TO ASSESS AND RECOMMEND HOME SAFETY ADAPTATIONS AND EDUCATE PATIENT /CAREGIVER ON FALL PREVENTION STRATEGIES TO ENHANCE PARTICIPATION IN ADLS. SUMMARY OF THERAPY EVAL/ASSESSMENT FINDINGS AND REASON(S) SKILLS OF A THERAPIST ARE INDICATED: OT EVALUATION (08/10/24) PATIENT IS A 68-YEAR-OLD MALE REFERRED BY PCP FOR OT SERVICES DUE TO DECLINE IN FUNCTIONAL STATUS AND ADLS. PATIENT WITH NEW ONSET SIGNIFICANT LOWER BACK AND EXTREMITY PAIN IMPACTING PATIENT'S ABILITY TO WALK AND PERFORM ADLS. PAST MEDICAL HISTORY OF AFIB, HTN , OBESITY, OSTEOARTHITIS, SLEEP APNEA, HYPERLIPIDEMIA. PRIOR LEVEL OF FUNCTION: PATIENT LIVES WITH DAUGHTER IN [place]UPLEX STYLE APARTMENT. BEDROOM BATHROOM ON THE SECOND FLOOR OF HOME. PATIENT AMBULATED WITH CANE AND WAS ABLE TO PERFORM FUNCTIONAL TRANSFERS INDEPENDENTLY HOWEVER HAS WOOD PILER SERVICES FOR ADLS AND IADLS. CURRENT LEVEL OF FUNCTION: PATIENT SEEN AND PRESENTS WITH DAUGHTER FOR EVALUATION. PATIENT SITTING COMFORTABLY IN A CHAIR. HE IS ABLE TO PERFORM A [id number] TRANSFER BUT WITH PAIN IN THE LEFT LOWER EXTREMITY GREATER THAN THE RIGHT. HE IS AMBULATING WITH A CANE WITHIN THE HOME HOWEVER STAYING ON THE SECOND FLOOR STAIRS HAVE PROVEN TOO DIFFICULT FOR HIM TO NAVIGATE AT THIS TIME. DAUGHTER IS ASSISTING WITH ALL ACTIVITIES INCLUDING SHOWER LEVEL BATHING DRESSING. THE ONLY THING SHE IS NOT ASSISTING WITH PATIENT WILL NOT LET HER IS TOILETING THERE USING A GALLON JUG CUTOUT A URINAL AND PATIENT IS TRYING TO PERFORM BOWEL MOVEMENT CARE WITHOUT ASSISTANCE. HE IS DEPENDENT FOR ALL ASPECTS OF IADLS AT THIS TIME. HAS DIFFICULTY GETTING IN AND OUT OF BED AND EDUCATION WAS PROVIDED TODAY TO PERFORM LOG ROLLING TECHNIQUE USING HIS BED RAIL. DUE TO HIS PAIN LEVELS AND WOOZY FEELING AFTER STARTING GABAPENTIN LAST EVENING HE DECLINED TO RETURN DEMO HOWEVER DAUGHTER WAS EDUCATED AND ABLE TO RETURN DEMO APPROPRIATELY. PATIENT DEMOS WITHIN FUNCTIONAL LIMITS RANGE OF MOTION BOTH UPPER EXTREMITIES HOWEVER STRENGTH IMPAIRED WITH STRENGTH TESTING INCREASED PAIN IN HIS BACK AREA. PAIN RATED 7-8/10 PARTICULARLY WITH WEIGHTBEARING. ASSESSMENT/POC: OCCUPATIONAL THERAPY EVALUATION COMPLETED TODAY WITH RECOMMENDATION FOR SKILLED OT SERVICES TO ADDRESS SAFETY WITH ADLS AND FUNCTIONAL TRANSFERS WELL ENDURANCE AND STRENGTH BUILDING. PATIENT AND CAREGIVER IN AGREEMENT WITH 1 TIME A WEEK X4. NOTIFIED OF OT EVAL AND PLAN OF CARE. PATIENT HAS FOLLOW UP THIS WEEK WITH PC.] Future Scheduled Test PHYSICAL T HERAPIST TO EVALUATE PATIENT SECONDARY TO FUNCTIONAL DEFICITS/SAFETY CONCERNS. PHYSICAL THERAPIST TO ASSESS BEST PRACTICE INTERVENTIONS TO ASSIST PATIENTS TO IMPROVE OR STABILIZE MEDICAL STATUS AND PREVENT RE-HOSPITALIZATION. MEASURES INCLUDING REVIEW AND IDENTIFICATION OF CONCERNS FOR THE FOLLOWING AREAS: DRUG REGIMEN, DIABETIC FOOT CARE, ENVIRONMENTAL SAFETY ISSUES AND FALLS, PRESSURE ULCERS, PAIN, AND DISEASE MANAGEMENT. PHYSICAL THERAPY TO ESTABLISH /UPGRADE/DOWNGRADE THERAPEUTIC EXERCISE PROGRAM AND INSTRUCT PATIENT/CAREGIVER ON EXERCISE PRECAUTIONS WITH WRITTEN HOME PROGRAM. MAY INCLUDE PROM, AAROM, AROM, RROM APPROPRIATE TO IMPROVE FUNCTIONAL STRENGTH AND RANGE OF MOTION. PHYSICAL THERAPY TO INSTRUCT PATIENT/CAREGIVER ON BED MOBILITY TECHNIQUES TO IMPROVE PATIENT MOBILITY AND POSITIONING TECHNIQUES IN ORDER TO INCREASE PATIENTS COMFORT AND DECREASE RISK OF SKIN BREAKDOWN. PHYSICAL THERAPY TO INSTRUCT PATIENT/CAREGIVER ON SAFE TRANSFER TECHNIQUES USING PROPER BODY MECHANICS AND EQUIPMENT. PHYSICAL THERAPY TO INSTRUCT PATIENT/CAREGIVER ON GAIT TRAINING TECHNIQUES USING APPROPRIATE ASSISTIVE DEVICE, PROPER BODY MECHANICS TO IMPROVE MOBILITY, AND PREVENT INJURY OF PATIENT AND/OR CAREGIVER. PHYSICAL THERAPY TO ASSESS AND RECOMMEND HOME SAFETY ADAPTATIONS AND EDUCATE PATIENT /CAREGIVER ON FALL PREVENTION STRATEGIES. PHYSICAL THERAPY FOR OBSERVATION AND ASSESSMENT OF PAIN, EFFECTIVENESS OF PAIN MANAGEMENT REGIMEN AND SKILLED TEACHING RELATED TO PAIN MANAGEMENT. THERAPIST TO REPORT INCREASED PAIN LEVEL TO PHYSICIAN FOR PROMPT INTERVENTION. PHYSICAL THERAPY TO INSTRUCT PATIENT/CAREGIVER ON BALANCE AND BALANCE STRATEGIES TO IMPROVE SAFE MOBILITY AND REDUCE RISK FOR FALL AND INJURY INCLUDING PARTICIPATION IN [facility] SPECIALTY PROGRAM SUMMARY OF THERAPY EVAL/ASSESSMENT FINDINGS AND REASON(S) SKILLS OF A THERAPIST ARE INDICATED: PHYSICAL THERAPY EVALUATION (08/11/24) PATIENT IS A 68 YEAR OLD PRIMARILY SPEAKING MALE WITH PHYSICAL THERAPY REFERRAL FROM PCP (MD SUELLEN CHRISTIANSON) DUE TO RECENT INCREASED PAIN AND WEAKNESS IN BACK AND LEGS, RESULTING IN DIFFICLTY IN WALKING DUE TO MD DX: IV LUMBAR DISC DEGENERATION. PAST MEDICAL HISTORY: AFIB, HTN, OBESITY, OSTEOARTHITIS OF BILAT KNEES, SLEEP APNEA, HLD, RIGHT WRIST CARPAL TUNNEL, RIGHT CERVICAL RADICULOPATHY. CG INDIALázaro VILLASENOR REPORTS AT LAST PCP APPT IN OCTOBER, PATIENT SEEKING WEIGHT LOSS SURGERY, HOWEVER JACKLYN REPORTS PATIENT DEEMED NOT A SURGICAL CANDIDATE ON BLOOD THINNER (XARELTO). FALL HISTORY: NO RECENT FALLS REPORTED PATIENT LIVES IN [address] [facility] APART[facility] WITH DTR JACKLYN, WHO IS PAID WOOD PILER (27.5 DAY HRS/14 HRS AT NIGHT). PATIENT HAS 2 STAIRS WITH RAIL TO EXIT HOME, 13 SPIRAL STAIRS WITH PARTIAL RAIL TO 2ND FLOOR. PLOF: PATIENT AND CG REPORT PATIENT HAS NOT BEEN ABLE TO NEGOTIATE STAIRS SINCE APR 2024, WAS RECENTLY BEDBOUND AND WALKING LESS. PRIOR TO APRIL, PATIENT WAS ABLE TO TRANSFER AND AMB IN HOME WITH CANE. CLOF: PATIENT REPORTS SEVERE PAIN LEVEL: BACK, R HIP, R LOWER LEG AND FOOT PAIN. DME: BED RAIL, ROLLATOR, CANE, TUB TRANSFER BENCH, HANDHELD SHOWERHEAD, GRAB BARS SAFETY RECOMMENDATIONS: BED SIDE COMMODE WITH THIS THERAPIST PROVIDING, FWW ACQUISITION, FURNITURE RISERS FOR BED LOW HEIGHT. PATIENT REPORTS BURNING AND NUMBNESS BILAT DISTAL LE WITH RIGHT MORE DIMINISHED THAN LEFT. BILAT LE ROM WFL, BILAT LE STRENGTH L: 3+ TO /5, R:3-/5 TO 3/5. TO INCREASE BILAT LE STRENGTH, INSTRUCTED PATIENT IN BILAT LE SEATED THER EXER: HIP FLEX, KNEE EXT. DISPENSED ARABIC HEP SHEET. PATIENT ABLE TO COMPLETE SUPINE-->SIT WITH BED RAIL AND MIN A, ASSIST WITH BLES INTO BED. PATIENT COMPLETED SIT-->STAND OFF ROLLATOR SEAT WITH CGA AND VERBAL CUES TO LOCK BRAKES. PATIENT AND CG EDUC ON BEDSIDE COMMODE, ADJUSTED TO MAX HEIGHT TO FACILIATE SAFE TRANSFERS. WITH COMMODE PLACED OVER TOILET, PATIENT ABLE TO TRANSFER ON-->OFF TOILET WITH COMMODE AND GRAB BAR WITH CGA, VERBAL CUES FOR UE POSTIONING. PATIENT REQUIRES MIN A TO TRANSFER OFF LOW HEIGHT BED WITH FURNITURE RISERS RECOMMENDED. PATIENT AMB 25' X 2 WITH CANE AND CGA, DEMO FORWARD FLEXED POSTURE, BILAT RECIPROCAL REDUCED STEPS WITH FOOT FLAT AT INITIAL CONTACT. TINETTI = , FALL RISK. PATIENT PRESENTS WITH THE FOLLOWING DEFICITS: NEUROPATHY, DECREASED ENDURANCE, BILAT LE WEAKNESS, PAIN, RESULTING IN DIFFICULTY WITH BED MOBILITY, TRANSFERS AND AMB. SKILLED [facility] FREQ 1X5WKS TO MAX SAFETY AND FUNCTIONAL LEVEL IN HOME ENVIRONMENT WITH THER EXER, ESTABLISH HEP, BED MOBILITY, TRANSFER, GAIT TRAINING, ATTEMPT STAIR NEGOTIATION. PATIENT AND CG INFORMED ABOUT PHYSICAL THERAPY POC, INCLUDING FREQ, VERBALIZED ACCEPTANCE. MD NOTIFIED ABOUT PATIENT STATUS AND POC. CONTINUE GOALS FROM CURRENT POC WITH EXPECTED DATE OF COMPLETION SPECIFIED ON ORDER FREQUENCY AND DURATION. [code = PHYSICAL THERAPIST TO EVALUATE PATIENT SECONDARY TO FUNCTIONAL DEFICITS/SAFETY CONCERNS. PHYSICAL THERAPIST TO ASSESS BEST PRACTICE INTERVENTIONS TO ASSIST PATIENTS TO IMPROVE OR STABILIZE MEDICAL STATUS AND PREVENT RE-HOSPITALIZATION. MEASURES INCLUDING REVIEW AND IDENTIFICATION OF CONCERNS FOR THE FOLLOWING AREAS: DRUG REGIMEN, DIABETIC FOOT CARE, ENVIRONMENTAL SAFETY ISSUES AND FALLS, PRESSURE ULCERS, PAIN, AND DISEASE MANAGEMENT. PHYSICAL THERAPY TO ESTABLISH /UPGRADE/DOWNGRADE THERAPEUTIC EXERCISE PROGRAM AND INSTRUCT PATIENT/CAREGIVER ON EXERCISE PRECAUTIONS WITH WRITTEN HOME PROGRAM. MAY INCLUDE PROM, AAROM, AROM, RROM APPROPRIATE TO IMPROVE FUNCTIONAL STRENGTH AND RANGE OF MOTION. PHYSICAL THERAPY TO INSTRUCT PATIENT/CAREGIVER ON BED MOBILITY TECHNIQUES TO IMPROVE PATIENT MOBILITY AND POSITIONING TECHNIQUES IN ORDER TO INCREASE PATIENTS COMFORT AND DECREASE RISK OF SKIN BREAKDOWN. PHYSICAL THERAPY TO INSTRUCT PATIENT/CAREGIVER ON SAFE TRANSFER TECHNIQUES USING PROPER BODY MECHANICS AND EQUIPMENT. PHYSICAL THERAPY TO INSTRUCT PATIENT/CAREGIVER ON GAIT TRAINING TECHNIQUES USING APPROPRIATE ASSISTIVE DEVICE, PROPER BODY MECHANICS TO IMPROVE MOBILITY, AND PREVENT INJURY OF PATIENT AND/OR CAREGIVER. PHYSICAL THERAPY TO ASSESS AND RECOMMEND HOME SAFETY ADAPTATIONS AND EDUCATE PATIENT /CAREGIVER ON FALL PREVENTION STRATEGIES. PHYSICAL THERAPY FOR OBSERVATION AND ASSESSMENT OF PAIN, EFFECTIVENESS OF PAIN MANAGEMENT REGIMEN AND SKILLED TEACHING RELATED TO PAIN MANAGEMENT. THERAPIST TO REPORT INCREASED PAIN LEVEL TO PHYSICIAN FOR PROMPT INTERVENTION. PHYSICAL THERAPY TO INSTRUCT PATIENT/CAREGIVER ON BALANCE AND BALANCE STRATEGIES TO IMPROVE SAFE MOBILITY AND REDUCE RISK FOR FALL AND INJURY INCLUDING PARTICIPATION IN [facility] BAL[facility] SPECIALTY PROGRAM SUMMARY OF THERAPY EVAL/ASSESSMENT FINDINGS AND REASON(S) SKILLS OF A THERAPIST ARE INDICATED: PHYSICAL THERAPY EVALUATION (08/11/24) PATIENT IS A 68 YEAR OLD PRIMARILY SPEAKING MALE WITH PHYSICAL THERAPY REFERRAL FROM PCP (MD SUELLEN CHRISTIANSON) DUE TO RECENT INCREASED PAIN AND WEAKNESS IN BACK AND LEGS, RESULTING IN DIFFICLTY IN WALKING DUE TO MD DX: IV LUMBAR DISC DEGENERATION. PAST MEDICAL HISTORY: AFIB, HTN, OBESITY, OSTEOARTHITIS OF BILAT KNEES, SLEEP APNEA, HLD, RIGHT WRIST CARPAL TUNNEL, RIGHT CERVICAL RADICULOPATHY. CG WILLIAM VILLASENOR REPORTS AT LAST PCP APPT IN OCTOBER, PATIENT SEEKING WEIGHT LOSS SURGERY, HOWEVER JACKLYN REPORTS PATIENT DEEMED NOT A SURGICAL CANDIDATE ON BLOOD THINNER (XARELTO). FALL HISTORY: NO RECENT FALLS REPORTED PATIENT LIVES IN [address] [facility] APARTMENT WITH WILLIAM VILLASENOR, WHO IS PAID WOOD PILER (27.5 DAY HRS/14 HRS AT NIGHT). PATIENT HAS 2 STAIRS WITH RAIL TO EXIT HOME, 13 SPIRAL STAIRS WITH PARTIAL RAIL TO 2ND FLOOR. PLOF: PATIENT AND CG REPORT PATIENT HAS NOT BEEN ABLE TO NEGOTIATE STAIRS SINCE APR 2024, WAS RECENTLY BEDBOUND AND WALKING LESS. PRIOR TO APRIL, PATIENT WAS ABLE TO TRANSFER AND AMB IN HOME WITH CANE. CLOF: PATIENT REPORTS SEVERE PAIN LEVEL: BACK, R HIP, R LOWER LEG AND FOOT PAIN. DME: BED RAIL, ROLLATOR, CANE, TUB TRANSFER BENCH, HANDHELD SHOWERHEAD, GRAB BARS SAFETY RECOMMENDATIONS: BED SIDE COMMODE WITH THIS THERAPIST PROVIDING, FWW ACQUISITION, FURNITURE RISERS FOR BED LOW HEIGHT. PATIENT REPORTS BURNING AND NUMBNESS BILAT DISTAL LE WITH RIGHT MORE DIMINISHED THAN LEFT. BILAT LE ROM WFL, BILAT LE STRENGTH L: 3+ TO /5, R:3-/5 TO 3/5. TO INCREASE BILAT LE STRENGTH, INSTRUCTED PATIENT IN BILAT LE SEATED THER EXER: HIP FLEX, KNEE EXT. DISPENSED ARABIC HEP SHEET. PATIENT ABLE TO COMPLETE SUPINE-->SIT WITH BED RAIL AND MIN A, ASSIST WITH BLES INTO BED. PATIENT COMPLETED SIT-->STAND OFF ROLLATOR SEAT WITH CGA AND VERBAL CUES TO LOCK BRAKES. PATIENT AND CG EDUC ON BEDSIDE COMMODE, ADJUSTED TO MAX HEIGHT TO FACILIATE SAFE TRANSFERS. WITH COMMODE PLACED OVER TOILET, PATIENT ABLE TO TRANSFER ON-->OFF TOILET WITH COMMODE AND GRAB BAR WITH CGA, VERBAL CUES FOR UE POSTIONING. PATIENT REQUIRES MIN A TO TRANSFER OFF LOW HEIGHT BED WITH FURNITURE RISERS RECOMMENDED. PATIENT AMB 25' X 2 WITH CANE AND CGA, DEMO FORWARD FLEXED POSTURE, BILAT RECIPROCAL REDUCED STEPS WITH FOOT FLAT AT INITIAL CONTACT. TINETTI = 13/28, FALL RISK. PATIENT PRESENTS WITH THE FOLLOWING DEFICITS: NEUROPATHY, DECREASED ENDURANCE, BILAT LE WEAKNESS, PAIN, RESULTING IN DIFFICULTY WITH BED MOBILITY, TRANSFERS AND AMB. SKILLED HOMECARE PHYSICAL THERAPY FREQ 1X5WKS TO MAX SAFETY AND FUNCTIONAL LEVEL IN HOME ENVIRONMENT WITH THER EXER, ESTABLISH HEP, BED MOBILITY, TRANSFER, GAIT TRAINING, ATTEMPT STAIR NEGOTIATION. PATIENT AND CG INFORMED ABOUT PHYSICAL THERAPY POC, INCLUDING FREQ, VERBALIZED ACCEPTANCE. MD NOTIFIED ABOUT PATIENT STATUS AND POC. CONTINUE GOALS FROM CURRENT POC WITH EXPECTED DATE OF COMPLETION SPECIFIED ON ORDER FREQUENCY AND DURATION.] Goal Patient Goal - TO FEEL STRON TIGIST Goal Provider Goal - A PLAN OF CARE WILL BE ESTABLISHED THAT MEETS PATIENT'S RESIDENTIAL NEEDS AND INCLUDES PATIENT GOAL FOR HOME HEALTH. Goal Provider Goal - PATIENT/CAREGIVER WILL VERBALIZE UNDERSTANDING OF EDUCATION PROVIDED ON MEDICATIONS BY THE END OF THE CERTIFICATION PERIOD. Goal Provider Goal - PATIENT/CAREGIVER WILL VERBALIZE/DEMONSTRATE MANAGEMENT OF CARDIAC DISEASE PROCESS AND EXACERBATIONS WILL BE IDENTIFIED AND PROMPTLY REPORTED THROUGHOUT THE CERTIFICATION PERIOD. Goal Provider Goal - OCCUPATIONAL THERAPY EVALUATION TO BE COMPLETED WITH RECOMMENDATIONS AND WRITTEN PLAN OF TREATMENT ESTABLISHED FOR THE PHYSICIANS SIGNATURE. Goal Provider Goal - POLYSTYRENE MOLDING MACHINE TENDER TO COMPLETE EVALUATION TO ADDRESS THE PATIENTS SOCIAL AND EMOTIONAL FACTORS AND/OR WRITTEN PLAN OF TREATMENT ESTABLISHED FOR THE PHYSICIAN'S SIGNATURE. Goal Provider Goal - PATIENT/CAREGIVER WILL VERBALIZE/DEMONSTRATE MANAGEMENT OF RESPIRATORY DISEASE PROCESS. CHANGES IN RESPIRATORY STATUS WILL BE IDENTIFIED AND REPORTED TO PHYSICIAN FOR PROMPT INTERVENTION THROUGHOUT THE CERTIFICATION PERIOD. Goal Provider Goal - PATIENT/CAREGIVER WILL VERBALIZE/DEMONSTRATE THE ABILITY TO MANAGE CIRCULATORY DISEASE PROCESS AND EXACERBATIONS WILL BE IDENTIFIED FOR EARLY INTERVENTION THROUGHOUT THE CERTIFICATION PERIOD. Goal Provider Goal - A PHYSICAL THERAPY EVALUATION TO BE COMPLETED WITH RECOMMENDATIONS AND/OR WRITTEN PLAN OF TREATMENT ESTABLISHED FOR PHYSICIANS SIGNATURE. Goal Provider Goal - PATIENT/CAREGIVER WILL VERBALIZE UNDERSTANDING OF SIGNS AND SYMPTOMS, COMPLICATIONS, AND MANAGEMENT OF ATRIAL FIBRILLATION THROUGHOUT THE CERTIFICATION PERIOD. Goal Provider Goal - PATIENT/CAREGIVER WILL VERBALIZE SIGNS AND SYMPTOMS OF HYPERTENSION AND WILL BE ABLE TO DEMONSTRATE ABILITY TO MANAGE EXACERBATION BY END OF THE EPISODE. Goal Provider Goal - PATIENT/CAREGIVER WILL VERBALIZE/DEMONSTRATE UNDERSTANDING OF TEACHING RELATED TO ALTERED SKIN INTEGRITY BY END OF CERTIFICATION PERIOD. Goal Provider Goal - PATIENT/CAREGIVER WILL VERBALIZE UNDERSTANDING OF MUSCULOSKELETAL DISEASE INCLUDING SIGNS AND SYMPTOMS, MANAGEMENT, AND PRESCRIBED TREATMENT REGIMEN BY END OF EPISODE. Goal Provider Goal - PATIENT WILL HAVE SUPPORT MEASURES ESTABLISHED TO PREVENT HOSPITALIZATION AND ED USE AND PATIENT/CAREGIVER WILL VERBALIZE/DEMONSTRATE METHODS TO REDUCE AVOIDABLE HOSPITALIZATION AND ED USE BY END OF EPISODE. Goal Provider Goal - PATIENT/CAREGIVER WILL VERBALIZE UNDERSTANDING OF DISCHARGE PLANNING INSTRUCTIONS BY DATE OF DISCHARGE. Goal Provider Goal - PATIENT/CAREGIVER WILL VERBALIZE/DEMONSTRATE EFFECTIVE ENVIRONMENTAL SAFETY AND FALL PREVENTION STRATEGIES, WILL REMAIN SAFE IN THE COMMUNITY, AND WILL BE FREE OF DANGER TO SELF AND OTHERS THROUGHOUT THE CERTIFICATION PERIOD. Goal Provider Goal - PATIENT/CAREGIVER WILL DEMONSTRATE UNDERSTANDING OF PHARMACOLOGIC AND NONPHARMACOLOGIC PAIN CONTROL MEASURES AND PATIENT WILL HAVE IMPROVEMENT IN PAIN INTERFERING WITH ACTIVITY EVIDENCED BY PAIN CONTROLLED AT LEVEL OF 7 OR LESS BY END OF CERTIFICATION PERIOD. Goal Provider Goal - PATIENT/CAREGIVER WILL VERBALIZE UNDERSTANDING OF PRESSURE ULCER PREVENTION BY END OF THE EPISODE. Goal Provider Goal - A MEDICAL GRAPE CRUSHER CONSULT PRN WILL BE COMPLETED FOR THE ENHANCEMENT OF THE PATIENT'S SOCIAL AND EMOTIONAL FACTORS, NEED FOR CARE, RESPONSE TO TREATMENT AND ADJUSTMENT TO CARE, TO FOSTER INDEPENDENT LIVING AT HOME USING COMMUNITY RESOURCES, INCREASED FAMILY INVOLVEMENT OR BOTH WITHIN 2 WEEKS. PATIENT/CAREGIVER WILL VERBALIZE/DEMONSTRATE EFFECTIVE COMMUNITY RESOURCE PLANNING, EVIDENCED BY ACCEPTANCE OF ASSISTANCE FROM THOSE SERVICES FOR WHICH THEY ARE ELIGIBLE, EXTENDING THE PERIOD OF INDEPENDENCE IN THE HOME. Goal Provider Goal - OCCUPATIONAL THERAPIST TO EVALUATE PATIENT SECONDARY TO FUNCTIONAL DEFICITS/SAFETY CONCERNS IDENTIFIED DURING EVALUATION. PATIENT/CAREGIVER WILL PERFORM THERAPEUTIC EXERCISE/S AND DEMONSTRATE PARTICIPATION IN A HOME PROGRAM. PATIENT/CAREGIVER WILL DEMONSTRATE SAFE TRANSFERS USING APPROPRIATE ASSISTIVE DEVICE, BODY MECHANICS AND EQUIPMENT. CAREGIVER/PATIENT WILL DEMONSTRATE/VERBALIZE UNDERSTANDING OF RECOMMENDATIONS TO INCREASE SAFETY IN THE HOME AND FALL PREVENTION. Goal Provider Goal - PHYSICAL THERAPY EVALUATION TO BE COMPLETED WITH RECOMMENDATIONS AND/OR WRITTEN TREATMENT PLAN OF CARE ESTABLISHED FOR THE PHYSICIANS SIGNATURE PATIENT/CAREGIVER VERBALIZES UNDERSTANDING OF THE INITIAL BEST PRACTICE RECOMMENDATIONS. PHYSICIAN TO BE NOTIFIED APPROPRIATE FOR ANY CHANGES OR COMPLICATIONS THROUGHOUT THE CERTIFICATION PERIOD. PATIENT/CAREGIVER WILL PERFORM THERAPEUTIC EXERCISE/S AND DEMONSTRATE PARTICIPATION IN A HOME PROGRAM. PATIENT/CAREGIVER WILL DEMONSTRATE IMPROVED BED MOBILITY TECHNIQUES. PATIENT/CAREGIVER WILL DEMONSTRATE SAFE TRANSFERS USING APPROPRIATE ASSISTIVE DEVICE, BODY MECHANICS AND EQUIPMENT. PATIENT/CAREGIVER WILL DEMONSTRATE IMPROVED GAIT TECHNIQUES TO MINIMIZE RISK OF INJURY. PATIENT/CAREGIVER WILL DEMONSTRATE/VERBALIZE UNDERSTANDING OF RECOMMENDATIONS TO INCREASE SAFETY IN THE HOME AND FALL PREVENTION. INCREASED PAIN OR INEFFECTIVE PAIN CONTROL MEASURES WILL BE IDENTIFIED AND PROMPTLY REPORTED TO THE PHYSICIAN. PATIENT/CAREGIVER WILL DEMONSTRATE EFFECTIVE PAIN MANAGEMENT. PATIENT/CAREGIVER WILL DEMONSTRATE IMPROVED BALANCE AND REDUCE THE RISK OF FALLS AND INJURY. PHYSICAL THERAPY REASSESSMENT WILL BE COMPLETED WITH ESTABLISHMENT OF CONTINUED POC. Progress Notes Progress Notes <paragraph>[Visit Date: 2024 by SHUBHAM HARPER LPN]:</paragraph><paragraph>SNV 08/31 ABNORMAL VITALS: WITHIN ESTABLISHED PARAMETERS FALLS: NO FALLS, USES CANE MEDICATION CHANGES: NO CHANGES OBSERVATION AND ASSESSMENT PROVIDED: PATIENT IS ALERT AND ORIENTED X3, COOPERATIVE DURING VISIT. CAREGIVER PRESENT. PATIENT IS HAPPY TO BE ABLE TO GO DOWN TO STAIRS, AND NOT BE CONFINED UPSTAIRS. MAINTNANCE IN HOME REPAIRING HEAT. AWAITING TO HEAR BACK FROM OFFICE REGARDING REPAIRING STAIRS. PT AWARE OF PCP APPOINTMENT TOMORROW REINFORCED IMPORTANCE OF ATTENDING APPT. PATIENT IS ABLE TO COMMUNICATE AND COMPLETE SENTENCES, NAD NOTED. VSS, LS CLEAR, GENERALIZED BODY ACHES DUE TO EXERCIZING AND GOING UP AND DOWNSTAIRS YESTERDAY. PATIENT DENIES ANY NEW OR WORSENING SYMPTOMS. NO ISSUES WITH BOWELS OR BLADDER. APPETITE IS ADEQUATE. RECIEVED NEW CPAP SUPPLIES FROM [facility]. NO EDUCATION: LEAN PROTEIN INTAKE, HYDRATION REQUIREMENTS INTERVENTIONS NEEDED AT NEXT VISIT:ASSESSMENT, TEACHING COMMUNICATION WITH MD: NOT NEEDED AT THIS VISIT NEXT MD APPOINTMENT: PCP TOMMORROW PT AND CAREGIVER INSTRUCTED TO CALL MONICA CARING WITH ANY QUESTIONS OR CONCERNS AND/OR CHANGES IN CONDITION, STATE UNDERSTANDING</paragraph> Encounters Start Date/Time End Date/Time Encounter Type Admission Type Attending [facility] Facility Care Department Encounter ID Discharge Date Discharge Status Discharge Condition Discharge Reason Percent Goals Met 2024-08-08 00:00:00 2024-10-06 00:00:00 Outpatient NEW ADMISSION AYLIN DUFFY [facility] ED [id number] 31.91
== END 2024-09-01 14:26 | disposition home or self-care (01) ==
LOC: HO.HMCH 12:21
PROVIDERS: PCP Internal Medicine; Visit Provider Internal Medicine
DX: I10 Essential (primary) hypertension (principal); E66.01 Morbid (severe) obesity due to excess calories; I71.43 Infrarenal abdominal aortic aneurysm, without rupture; I48.0 Paroxysmal atrial fibrillation; M51.362 Other intervertebral disc degeneration, lumbar region with discogenic back pain and lower extremity pain; E78.5 Hyperlipidemia, unspecified; M54.12 Radiculopathy, cervical region; M17.0 Bilateral primary osteoarthritis of knee

== ENCOUNTER → 2024-09-01 12:21 | Outpatient (BNVA) | payer OTHER, MEDICAID, SELFPAY | PROVIDERS: PCP Internal Medicine; Visit Provider Internal Medicine | DX: M51.362 Other intervertebral disc degeneration, lumbar region with discogenic back pain and lower extremity pain (principal); I10 Essential (primary) hypertension; E78.5 Hyperlipidemia, unspecified; M17.0 Bilateral primary osteoarthritis of knee; M54.12 Radiculopathy, cervical region; E66.01 Morbid (severe) obesity due to excess calories; I48.0 Paroxysmal atrial fibrillation; I71.43 Infrarenal abdominal aortic aneurysm, without rupture | CPT/HCPCS: 96127 ==

== ENCOUNTER 2024-09-24 09:52 | Outpatient (AMB) | payer OTHER, MEDICAID, SELFPAY ==
[2024-09-24 10:11] VITALS: BP 124/76; PULSE 63; BMI 47.0
--- NOTE | 2024-09-24 10:11 | A.OFFVIS_ITS ---
Vital Signs 09/24/24 10:11 Height 5 ft 9 in Weight 318 lb 5.56 oz BMI 47.0 BP 124/76 Blood Pressure Location Lt brachial Position Sitting Pulse 63 Intake Visit Reasons: History of cardiomyopathy Food Production Machine Operator Required: Yes Food Production Machine Operator Services: Food Production Machine Operator Offered & Declined Food Production Machine Operator Name: daughter will interpret Accompanied by: Daughter Allergies No Known Allergies Allergy (Verified 09/24/24 11:03) Medication List - Last Reconciled 09/24/24 by JUAN Peters acetaminophen ER 650 mg PO Q12H PRN 30 days arm brace (Wrist Support Large-XLarge) As directed blood pressure monitor (Blood Pressure Kit) As directed cholecalciferol (vitamin D3) 50 mcg PO DAILY 90 days [cock up slint wear on each wrist at night ] CPAP (CPAP Machine/Device) As directed docusate sodium 100 mg PO DAILY PRN dronedarone (Multaq) 400 mg PO Q12H famotidine 40 mg PO DAILY fluticasone furoate 50 mcg/actuation (Arnuity Ellipta) 1 inh inhalation Q24H 30 days hospital bed As directed losartan 100 mg PO DAILY metoprolol tartrate 25 mg PO Q12H omeprazole 40 mg PO DAILY [recliner As directed] rivaroxaban (Xarelto) 20 mg PO DAILY rosuvastatin 5 mg PO DAILY@1730 90 days sennosides (senna) 17.2 mg (2 x 8.6 mg) PO DAILY PRN trazodone 50 mg PO BEDTIME PRN 90 days vitamin A palmitate 3,000 mcg PO DAILY 90 days HPI HPI History of cardiomyopathy: Details: Vaughn is a 68-year-old male with past medical history of hypertension, obstructive sleep apnea, infrarenal abdominal aortic aneurysm, cardiomyopathy with AFib RVR, paroxysmal atrial fibrillation who presents for follow-up. His last visit to our office was 02/04/2022. Did have a cardioversion with Dr. Reyes on 02/12/2023. Today he reports he has been doing well overall. There was a time where he was having difficulty getting out of bed due to his obesity. He is now working on weight loss and following with the bariatric program. He has been trying to be more active. He has no chest discomfort at rest or with activity. He has some shortness of breath with activity. No PND, orthopnea or edema. No heart palpitations, lightheadedness, presyncope, syncope. Taking meds as directed. No bleeding issues reported. [facility] Medical History Numbness and tingling in both hands Bilateral shoulder pain Former smoker History of cardiomyopathy Peptic ulcer disease Shortness of breath Physical exam Obstructive sleep apnea HTN (hypertension) Paroxysmal atrial fibrillation Primary osteoarthritis involving multiple joints Mild asthma Chronic idiopathic constipation Surgical History History of cardioversion History of esophagogastroduodenoscopy (EGD) History of cholecystectomy Family History Mother Diabetes High blood pressure Heart attack Heart problem Father Diabetes Stomach problems Brother Diabetes High blood pressure Stomach problems Paternal Grandmother Lung cancer Sister Cancer Stomach problems Maternal Grandfather Heart problem Maternal Grandmother Heart problem Family/Other Substance use disorder Social History Household Members: Children Housing: Apartment Alcohol intake: never Patient Tobacco Use Status: Former Tobacco user Tobacco use type: Cigarette Cigarettes Per Day: 4 Years Smoked: 10 e-Cigarette/Vaping Use: Never Used Second Hand Smoke Exposure: No service: No Current occupational status: disabled Cognitive needs: Yes Hearing needs: No Vision needs: Yes Review of Systems Const All systems reviewed & are unremarkable except as noted in HPI and below Denies chills, Denies fatigue, Denies fever(s), Denies weight gain and Reports weight loss ENT Denies dizziness Card Denies chest pain, Denies leg edema, Denies lightheadedness, Denies palpitations, Reports dyspnea on exertion, Denies orthopnea and Denies other Resp Denies cough and Reports dyspnea on exertion GI Denies hematochezia and Denies change in stool character Musc Reports abnormal gait (uses cane), Reports muscle weakness, Denies numbness, Denies radiating pain into limb and Denies tingling Neuro Reports abnormal gait (uses cane), Denies dizziness, Denies numbness and Denies tingling Endo Denies fatigue and Denies palpitations Physical Exam Vital Signs: Last Vital Signs Pulse 63 09/24/24 10:11 BP 124/76 09/24/24 10:11 BMI result Body Mass Index 47.0 Const Other: morbid obesity General: cooperative, comfortable and no acute distress Orientation/consciousness: patient oriented x3 Neck Neck: Yes normal visual inspection Resp Effort & Inspection: normal respiratory effort Auscultation: clear to auscultation bilaterally, no rales, no rhonchi and no wheezes Cardio Rate: regular rate Rhythm: regular rhythm Heart sounds: S1 normal heart sound present, S2 normal heart sound present, no murmurs and no rubs Neuro General: patient oriented x3 Extrem General: Yes normal to inspection, No no pedal edema and No calf tenderness Psych Appearance: grossly normal Mental Status: mental status grossly normal Speech and movement: Normal speech and movement present Office Procedures EKG Details: Today, read by me, sinus bradycardia with sinus arrythmia, 2 PVCs on tracing, rate 63, Qtc 464ms [id number], Complete Assessment & Plan Assessment & Plan (1) Paroxysmal atrial fibrillation: Code(s): I48.0 - Paroxysmal atrial fibrillation Category: Medical Plan: History of paroxysmal atrial fibrillation with at least 2 cardioversions in the past. Last echocardiogram 04/11/2023 showed EF 55-60%, normal valves, left atrium likely dilated, right atrium not well visualized. EKG done today showing sinus bradycardia with sinus arrhythmia, 2 PVCs, QTC 464 milliseconds. He is on Multaq 400 mg b.i.d. as well as metoprolol 25 mg b.i.d.. He is not noticing any heart palpitations he is on Xarelto for anticoagulation. No bleeding issues reported. Labs done 04/29/2024 showed hemoglobin 14.5, creatinine 1.49. No med changes made. Office EKG every 3 months with Multaq use, reminded of this. Cardiology follow-up 6 months, sooner if needed. (2) Chronic anticoagulation: Code(s): Z79.01 - snf (current) use of anticoagulants Category: Medical Plan: As above (3) HTN (hypertension): Code(s): I10 - Essential (primary) hypertension Category: Medical Qualifiers: Hypertension type: essential hypertension Qualified Code(s): I10 - Essential (primary) hypertension Plan: Blood pressure good at this time. He is on losartan, metoprolol for blood pressure control. No med changes made. (4) Obstructive sleep apnea: Code(s): G47.33 - Obstructive sleep apnea (adult) (pediatric) Category: Medical Plan: Compliant with CPAP. (5) Morbid obesity: Code(s): E66.01 - Morbid (severe) obesity due to excess calories Category: Medical Plan: Following with bariatric program. Plan Time spent on chart review, documentation, interview and assessment Medications: Changed From rivaroxaban (Xarelto) 20 mg PO DAILY 30 tabs 0RF To rivaroxaban (Xarelto) 20 mg PO DAILY 90 tabs 3RF 90 days From dronedarone (Multaq) 400 mg PO Q12H 60 tabs 0RF To dronedarone (Multaq) 400 mg PO Q12H 180 tabs 1RF 90 days From metoprolol tartrate 25 mg PO Q12H 60 tabs 5RF To metoprolol tartrate 25 mg PO Q12H 180 tabs 3RF 90 days Coding Level of Care Code Est Pt Level 4 (84775) Complex EM visit Add On G2211 Diagnoses Paroxysmal atrial fibrillation I48.0 Chronic anticoagulation Z79.01 Essential hypertension I10 Hypertension type: essential hypertension Obstructive sleep apnea G47.33 Morbid obesity E66.01 CPT Codes EKG - CPT: 08467-[id number], Complete ([id number]) Time Spent (min) 32
== END 2024-09-24 10:44 | disposition home or self-care (01) ==
LOC: HO.HCS 09:52
PROVIDERS: PCP Internal Medicine; Visit Provider Nurse Practitioner Family
DX: I48.0 Paroxysmal atrial fibrillation (principal); Z79.01 Long term (current) use of anticoagulants; I10 Essential (primary) hypertension; G47.33 Obstructive sleep apnea (adult) (pediatric); E66.01 Morbid (severe) obesity due to excess calories
CPT/HCPCS: 93010; 99214; G2211

== ENCOUNTER → 2024-09-24 09:52 | Outpatient (BNVA) | payer OTHER, MEDICAID, SELFPAY | PROVIDERS: PCP Internal Medicine; Visit Provider Nurse Practitioner Family | DX: I10 Essential (primary) hypertension (principal); I71.43 Infrarenal abdominal aortic aneurysm, without rupture; I42.9 Cardiomyopathy, unspecified; I48.0 Paroxysmal atrial fibrillation; G47.33 Obstructive sleep apnea (adult) (pediatric); E66.01 Morbid (severe) obesity due to excess calories; Z79.01 Long term (current) use of anticoagulants; Z68.42 Body mass index [BMI] 45.0-49.9, adult | CPT/HCPCS: 93005 ==

== ENCOUNTER 2024-10-06 09:18 | Outpatient (AMB) | payer OTHER, MEDICAID, SELFPAY ==
--- NOTE | 2024-10-06 09:21 | A.OFFPC_ITS ---
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 Accompanied by: Self / Same As Patient Allergies No Known Allergies Allergy (Verified 10/06/24 09:50) Medication List - Last Reconciled 10/06/24 by Sulma Brock MD acetaminophen ER 650 mg PO Q12H PRN 30 days arm brace (Wrist Support Large-XLarge) As directed blood pressure monitor (Blood Pressure Kit) As directed cholecalciferol (vitamin D3) 50 mcg PO DAILY 90 days [cock up slint wear on each wrist at night ] CPAP (CPAP Machine/Device) As directed docusate sodium 100 mg PO DAILY PRN dronedarone (Multaq) 400 mg PO Q12H 90 days famotidine 40 mg PO DAILY fluticasone furoate 50 mcg/actuation (Arnuity Ellipta) 1 inh inhalation Q24H 30 days hospital bed As directed losartan 100 mg PO DAILY metoprolol tartrate 25 mg PO Q12H 90 days omeprazole 40 mg PO DAILY [recliner As directed] rivaroxaban (Xarelto) 20 mg PO DAILY 90 days rosuvastatin 5 mg PO DAILY@1730 90 days sennosides (senna) 17.2 mg (2 x 8.6 mg) PO DAILY PRN trazodone 50 mg PO BEDTIME PRN 90 days vitamin A palmitate 3,000 mcg PO DAILY 90 days Tobacco use date assessed: 09/01/24 Fall risk assessment: No Falls in past year Last assessed Fall Risk: 10/06/24 Dental Screening Dental Screen Date: 09/01/24 HPI HPI Comments History of Present Illness Details This is a 68-year-old male with hypertension, morbid obesity, obstructive sleep apnea on CPAP, dyslipidemia and paroxysmal atrial fibrillation on chronic anticoagulation that has tele health visit by video complaining of low back pain radiating to the legs and associated with bilateral leg numbness and tingling. No fever, bowel or bladder incontinence. He did receive physical therapy at home and had gabapentin 300 at bedtime which make him very loopy and sleepy and he had to discontinue it. He still in pain and I will start him on pregabalin which he is aware is a controlled substance. Due to this matter he has required more hours for [employer] STE[employer] E[employer]. He does needs assistance in basic activities of daily living such as bathing, transferring from bed to chair, dressing/undressing and toileting. [facility], [facility] Medical History (Updated 10/06/24 @ 13:19 by Sulma Brock MD) Numbness and tingling in both hands Bilateral shoulder pain Former smoker History of cardiomyopathy Peptic ulcer disease Shortness of breath Physical exam Obstructive sleep apnea HTN (hypertension) Paroxysmal atrial fibrillation Primary osteoarthritis involving multiple joints Mild asthma Chronic idiopathic constipation Surgical History History of cardioversion History of esophagogastroduodenoscopy (EGD) History of cholecystectomy Family History Mother Diabetes High blood pressure Heart attack Heart problem Father Diabetes Stomach problems Brother Diabetes High blood pressure Stomach problems Paternal Grandmother Lung cancer Sister Cancer Stomach problems Maternal Grandfather Heart problem Maternal Grandmother Heart problem Family/Other Substance use disorder Social History Household Members: Children Housing: Apartment Alcohol intake: never Patient Tobacco Use Status: Former Tobacco user Tobacco use type: Cigarette Cigarettes Per Day: 4 Years Smoked: 10 e-Cigarette/Vaping Use: Never Used Second Hand Smoke Exposure: No service: No Current occupational status: disabled Cognitive needs: Yes Hearing needs: No Vision needs: Yes Questionnaire Thrive Questionnaire Date Thrive assessed: 09/01/24 CHALO-7 AMB Questionnaire CHALO-7 Date CHALO - 7 assessed: 09/01/24 Source: Developed by Drs. Trenton Saenz, Antonette Fraser, Malcolm Dias and colleagues, with an educational andi from [employer]. Review of Systems Const All systems reviewed & are unremarkable except as noted in HPI and below Card Denies chest pain at rest, Denies chest pain with activity, Denies edema, Denies irregular heart rhythm, Denies claudication, Denies dyspnea, Denies dyspnea on exertion, Denies orthopnea, Denies paroxysmal nocturnal dyspnea and Denies slow heart rate Resp Denies cough, Denies dyspnea and Denies dyspnea on exertion GI Denies abdominal pain, Denies change in bowel habits, Denies excessive flatus, Denies nausea and Denies vomiting Denies urinary hesitancy, Denies urinary incontinence and Denies urinary urgency Neuro Denies confusion and Denies lack of coordination Psych Denies confusion Physical exam (Primary Care) Tobacco/Smoking Status: Tobacco use Status Tobacco use date assessed 09/01/24 10/06/24 09:23 Patient Tobacco Use Status Former Tobacco user 10/06/24 09:23 Tobacco use type Cigarette 10/06/24 09:23 e-Cigarette/Vaping Use Never Used 10/06/24 09:23 Thrive Assessment: Date of Thrive Assessment Date Thrive assessed 09/01/24 10/06/24 09:23 Const General: No confusion Orientation/consciousness: No confusion Eyes General: appearance normal, both eyes and all related structures Eyelids: Yes eyelids normal Conjunctivae: conjunctivae normal Skin General skin exam: no rashes or lesions noted Neuro General: No confusion Telehealth Telehealth Telehealth Platform: Telephone Location of provider rendering services: practice address Location of patient: address on file Patient Identification confirmed using: Name, : Yes Telehealth method: video Patient verbally consented to treatment: Yes Patient verbally consented to billing insurance company: Yes Patient informed of any privacy concerns related to visit: Yes Minutes spent on Phone/Video with Pt.: 15 Coding Level of Care Code Tele Est Pt Level 4 (34062) Complex EM visit Add On G2211 Diagnoses Essential hypertension I10 Dyslipidemia E78.5 Paroxysmal atrial fibrillation I48.0 Obstructive sleep apnea G47.33 Morbid obesity E66.01 Sciatica M54.30 Time Spent (min) 15 Assessment & Plan Assessment & Plan (1) Essential hypertension: Code(s): I10 - Essential (primary) hypertension Category: Medical (2) Dyslipidemia: Code(s): E78.5 - Hyperlipidemia, unspecified Category: Medical (3) Paroxysmal atrial fibrillation: Code(s): I48.0 - Paroxysmal atrial fibrillation Category: Medical (4) Obstructive sleep apnea: Code(s): G47.33 - Obstructive sleep apnea (adult) (pediatric) Category: Medical (5) Morbid obesity: Code(s): E66.01 - Morbid (severe) obesity due to excess calories Category: Medical (6) Sciatica: Code(s): M54.30 - Sciatica, unspecified side Category: Medical Plan Continue current meds. Discontinue gabapentin. Start pregabalin. Letter for more [employer] hours done and faxed to [facility]. Orders: Referrals Cologuard Test Z12.11 - Encounter for screening for malignant neoplasm of colon, Z12.12 - Encounter for screening for malignant neoplasm of rectum Medications: New pregabalin 50 mg PO BID 60 caps 0RF 30 days
== END 2024-10-06 10:51 | disposition home or self-care (01) ==
LOC: HO.HMCH 09:18
PROVIDERS: PCP Internal Medicine; Visit Provider Internal Medicine
DX: I10 Essential (primary) hypertension (principal); I48.0 Paroxysmal atrial fibrillation; E66.01 Morbid (severe) obesity due to excess calories; E78.5 Hyperlipidemia, unspecified; G47.33 Obstructive sleep apnea (adult) (pediatric); M54.30 Sciatica, unspecified side

== ENCOUNTER 2024-10-08 08:05 | Outpatient (AMB) | payer OTHER, MEDICAID, SELFPAY ==
--- NOTE | 2024-10-08 11:04 | A.OFFVIS_ITS ---
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* Employee'S Representative Required: Yes Employee'S Representative Services: Employee'S Representative Present Information Interpreted: clinical only Allergies No Known Allergies Allergy (Verified 10/08/24 11:05) Medication List - Last Reconciled 10/08/24 by Behzad Jovel MD acetaminophen ER 650 mg PO Q12H PRN 30 days arm brace (Wrist Support Large-XLarge) As directed blood pressure monitor (Blood Pressure Kit) As directed cholecalciferol (vitamin D3) 50 mcg PO DAILY 90 days [cock up slint wear on each wrist at night ] CPAP (CPAP Machine/Device) As directed docusate sodium 100 mg PO DAILY PRN dronedarone (Multaq) 400 mg PO Q12H 90 days famotidine 40 mg PO DAILY fluticasone furoate 50 mcg/actuation (Arnuity Ellipta) 1 inh inhalation Q24H 30 days hospital bed As directed losartan 100 mg PO DAILY metoprolol tartrate 25 mg PO Q12H 90 days omeprazole 40 mg PO DAILY pregabalin 50 mg PO BID 30 days [recliner As directed] rivaroxaban (Xarelto) 20 mg PO DAILY 90 days rosuvastatin 5 mg PO DAILY@1730 90 days sennosides (senna) 17.2 mg (2 x 8.6 mg) PO DAILY PRN trazodone 50 mg PO BEDTIME PRN 90 days vitamin A palmitate 3,000 mcg PO DAILY 90 days HPI HPI 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 Dinner is at 4 pm. Breakfast: coffee decaf, toast, cheese AM snack: skip Lunch: skip PM snack: granola bar Dinner: meat and rice and salad After dinner: PB and Jelly Other snacks: cookies and ice cream [facility] Medical History (Updated 10/08/24 @ 11:12 by Behzad Jovel MD) Insomnia Numbness and tingling in both hands Bilateral shoulder pain Former smoker History of cardiomyopathy Peptic ulcer disease Shortness of breath Physical exam Obstructive sleep apnea HTN (hypertension) Paroxysmal atrial fibrillation Primary osteoarthritis involving multiple joints Mild asthma Chronic idiopathic constipation Surgical History History of cardioversion History of esophagogastroduodenoscopy (EGD) History of cholecystectomy Family History Mother Diabetes High blood pressure Heart attack Heart problem Father Diabetes Stomach problems Brother Diabetes High blood pressure Stomach problems Paternal Grandmother Lung cancer Sister Cancer Stomach problems Maternal Grandfather Heart problem Maternal Grandmother Heart problem Family/Other Substance use disorder Social History Household Members: Children Housing: Apartment Alcohol intake: never Patient Tobacco Use Status: Former Tobacco user Tobacco use type: Cigarette Cigarettes Per Day: 4 Years Smoked: 10 e-Cigarette/Vaping Use: Never Used Second Hand Smoke Exposure: No service: No Current occupational status: disabled Cognitive needs: Yes Hearing needs: No Vision needs: Yes Telehealth Telehealth Telehealth Platform: Telephone Location of provider rendering services: practice address Location of patient: address on file Patient Identification confirmed using: Name, : Yes Telehealth method: voice only Patient verbally consented to treatment: Yes Patient verbally consented to billing insurance company: Yes Patient informed of any privacy concerns related to visit: Yes Minutes spent on Phone/Video with Pt.: 45 Assessment & Plan Assessment & Plan (1) Morbid obesity: Code(s): E66.01 - Morbid (severe) obesity due to excess calories Category: Medical Plan: 1. We discussed in detail the available therapeutic options: 1) our lifestyle intervention program that has an average weight loss of 10% in 3 months.? 2) Weight loss medications. 3) We also discussed about the lap sleeve gastrectomy. I emphasized the importance of close follow-up, adherence to instructions and good communication. The surgery does not replace the need to change your lifestlyle which is the cause of the obesity problem. The surgery provides the motivation to try again to change your lifestyle, it reduces the appetite and make the transition to a better lifestyle easier and doubles the amount of weight you would lose compared to doing the lifestyle change without the surgery. You will need to be on a liquid diet with protein shakes for 2 weeks before surgery to maximize weight loss and boost your nutritional status to recover better from surgery and also for the first two weeks after surgery to let the stomach heal before we introduce other foods. After the first 2 weeks we will introduce protein bars and soft foods like scrambled eggs, cottage cheese and yogurt and after the 6th week will introduce meat, fish and cooked vegetables in small amounts. Over time you should be able to eat everything in small amounts. Side effects like nausea, vomiting, heartburn or abdominal pain are not common in the practice unless you are not following in the practice. This operation requires lifetime commitment to following in our practice and communication with me. You will much less weight and experience side effects if you don?t communicate or not following in the practice. Complications are rare and in our practice is about 1/10 of the national average. The patient prefers to try the anti-obesity medications. 2.? Please use your body composition scale and send me weight measurements as soon as possible and then once a week. 3. The best choice would be to purchase a stationary bike at home that can track calories. Let me know if you do so I can give you an exercise plan. Goal is to exercise for 150 minutes per week. 4. Goal is to lose at least 1.5-2lbs per week 5. Goal to lose at least 10% of your weight, which is about 32lbs. Minimum weight goal: 284lbs 6. You have high blood pressure. Please take one per day. Buy a blood pressure monitor and start measuring your blood pressure daily in the morning and let me know the readings if the blood pressure is below 120/70 or above 150/90. 7. I ordered a medication to help you with the weight loss which is called Zepbound. My office will try to authorize it. Please let me know when you receive it so I can give you a meal and exercise plan. Common side effects include nausea, vomiting, constipation, diarrhea, abdominal pain. Please let me know if you develop any of these symptoms. 7. Please track the calories you consume daily and aim not to exceed the 1800 calories per day. Avoid high calorie drinks, fried, or high in fat foods as well as large amount of carbohydrares (sweets, potatoes, rice, or pasta). Medications: New tirzepatide (weight loss) (Zepbound) for 4 weeks 2.5 mg (0.5 mL) subcut QWEEK 2 mL 0RF E66.01 - Morbid (severe) obesity due to excess calories, I10 - Essential (primary) hypertension, I48.0 - Paroxysmal atrial fibrillation
[2024-10-08 11:27] VITALS: BMI 46.7
== END 2024-10-08 11:37 | disposition home or self-care (01) ==
LOC: HO.HBS 08:05
PROVIDERS: PCP Internal Medicine; Visit Provider Surgery
DX: E66.813 Obesity, class 3 (principal); Z68.42 Body mass index [BMI] 45.0-49.9, adult
CPT/HCPCS: 98014

== ENCOUNTER 2024-11-25 10:00 | Outpatient (AMB) | payer OTHER, MEDICAID, SELFPAY ==
--- NOTE | 2024-11-25 10:10 | A.OFFPC_ITS ---
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: No Accompanied by: Self / Same As Patient Allergies No Known Allergies Allergy (Verified 11/25/24 10:31) Medication List - Last Reconciled 11/25/24 by Sulma Brock MD acetaminophen ER 650 mg PO Q12H PRN 30 days arm brace (Wrist Support Large-XLarge) As directed blood pressure monitor (Blood Pressure Kit) As directed cholecalciferol (vitamin D3) 50 mcg PO DAILY 90 days [cock up slint wear on each wrist at night ] CPAP (CPAP Machine/Device) As directed docusate sodium 100 mg PO DAILY PRN dronedarone (Multaq) 400 mg PO Q12H 90 days famotidine 40 mg PO DAILY fluticasone furoate 50 mcg/actuation (Arnuity Ellipta) 1 inh inhalation Q24H 30 days hospital bed As directed losartan 100 mg PO DAILY metoprolol tartrate 25 mg PO Q12H 90 days omeprazole 40 mg PO DAILY pregabalin 50 mg PO BID 30 days [recliner As directed] rivaroxaban (Xarelto) 20 mg PO DAILY 90 days rosuvastatin 5 mg PO DAILY@1730 90 days sennosides (senna) 17.2 mg (2 x 8.6 mg) PO DAILY PRN tirzepatide (weight loss) (Zepbound) 5 mg (0.5 mL) subcut QWEEK trazodone 50 mg PO BEDTIME PRN 90 days vitamin A palmitate 3,000 mcg PO DAILY 90 days Tobacco use date assessed: 09/01/24 Fall risk assessment: No Falls in past year Last assessed Fall Risk: 11/25/24 Dental Screening Dental Screen Date: 11/25/24 Did you have a dental visit in the last 12 months?: No Did you have a dental problem in the last 6 months where you did not have access to dental care?: No Was dental information given to patient?: Patient has dentist HPI HPI Comments History of Present Illness Details The patient is a 69-year-old male presenting for an annual physical examination and vaccination review. The patient's primary concern during this visit was ensuring his vaccinations were up-to-date. He acknowledges incomplete vaccination for herpes zoster due to an episode of neuropathy last year. His tetanus vaccination is overdue, with the last documented vaccination in 2001. The patient also described chronic constipation, managed with Docusate and additional medication known as Guadalupe. He employs a CPAP machine for obstructive sleep apnea. His medical history includes hypertension, atrial fibrillation managed with Losartan, Metoprolol, and Multaq, and dyslipidemia for which he takes Rosuvastatin. He has gastroesophageal reflux disease managed with Omeprazole and Famotidine. Notifications of an abdominal aortic aneurysm were recorded last year, with a follow-up planned in 2026. The patient had neuropathy onset coinciding with his last missed shingles vaccination, affecting mobility. The patient addresses his depression with Trazodone. He has a positive family history of diabetes from both parents, and he noted lifestyle adjustments, including dietary modifications and physical activity, that have contributed to weight loss and improved functionality. He denies current alcohol use and reports a history of smoking. - Administer Shingrix vaccine series; ne eds scheduling - Administer Td/Tdap booster (last admin istered in 2001) - Follow-up ultrasound for abdominal aor tic aneurysm due in 2026 - Encourage continued weight management and exercise regimen - Dietary adjustments for weight loss an d improved functionality noted - Smoking cessation noted, reinforce [facility] Medical History (Updated 11/25/24 @ 12:22 by Sulma Brock MD) Physical exam Insomnia Numbness and tingling in both hands Bilateral shoulder pain Former smoker History of cardiomyopathy Peptic ulcer disease Shortness of breath Obstructive sleep apnea HTN (hypertension) Paroxysmal atrial fibrillation Primary osteoarthritis involving multiple joints Mild asthma Chronic idiopathic constipation Surgical History History of cardioversion History of esophagogastroduodenoscopy (EGD) History of cholecystectomy Family History Mother Diabetes High blood pressure Heart attack Heart problem Father Diabetes Stomach problems Brother Diabetes High blood pressure Stomach problems Paternal Grandmother Lung cancer Sister Cancer Stomach problems Maternal Grandfather Heart problem Maternal Grandmother Heart problem Family/Other Substance use disorder Social History Household Members: Children Housing: Apartment Alcohol intake: never Patient Tobacco Use Status: Former Tobacco user Tobacco use type: Cigarette Cigarettes Per Day: 4 Years Smoked: 10 e-Cigarette/Vaping Use: Never Used Second Hand Smoke Exposure: No service: No Current occupational status: disabled Cognitive needs: Yes Hearing needs: No Vision needs: Yes Questionnaire PHQ-9 Over the last 2 weeks, how often have you been bothered by any of the following problems? 1. Little interest or pleasure in doing things: more than half the days 2. Feeling down, depressed, or hopeless: not at all 3. Trouble falling or staying asleep, or sleeping too much: not at all 4. Feeling tired or having little energy: not at all 5. Poor appetite or overeating: not at all 6. Feeling bad about yourself - or that you are a failure or have let yourself or your family down: not at all 7. Trouble concentrating on things, such as reading the newspaper or watching television: not at all 8. Moving or speaking so slowly that other people could have noticed. Or the opposite - being so fidgety or restless that you have been moving around a lot more than usual: several days 9. Thoughts that you would be better off or of hurting yourself in some way: not at all Total score: 3 Depression Screening Interpretation: Positive Depression Screening Follow-up: Existing condition and Follow-up Visit Requested Depression Screening Done: Yes 85230 - PHQ-9 Billing: Yes Source: Developed by Drs. Trenton Saenz, Antonette Fraser, Malcolm Dias and colleagues, with an educational andi from [employer]. Thrive Questionnaire Date Thrive assessed: 09/01/24 I am a: Patient What is your living situation today?: I have a steady place to live Within the past 12 months, did the food you bought not last and you didn't have the money to get more?: Never true Within the past 12 months, did you worry whether your food would run out before you got money to buy more?: Never true Do you have trouble paying for medicines?: No Do you have trouble getting transportation to medical appointments?: No Do you have trouble paying your heating and electricity bill?: No Do you have trouble taking care of your child, family member or friend?: I choose not to answer this question Do you have trouble with day-to-day activities such as bathing, preparing meals, shopping, managing finances, etc.?: Yes Are you currently unemployed and looking for a job?: No Are you interested in more education?: No Please select the resources that you would like help with: None Currently or been in a relationship where the following occur: I choose not to answer THRIVE Score: 0 AUDIT C Alcohol Use Questionnaire (AUDIT-C) 1. How often do you have a drink containing alcohol?: Never Total Score: 0 Score Reviewed/Action Taken: No CHALO-7 AMB Questionnaire CHALO-7 Date CHALO - 7 assessed: 09/01/24 Feeling nervous, anxious, or on edge: 1 = Several days Not being able to stop or control worryin = Not at all Worrying too much about different things: 0 = Not at all Trouble relaxin = Not at all Being so restless that it is hard to sit still: 2 = More than half the days Becoming easily annoyed or irritable: 0 = Not at all Feeling afraid as if something awful might happen: 0 = Not at all Total CHALO-7 score (0-4 normal; 5-9 mild; 10-14 moderate; 15-21 severe): 3 Source: Developed by Drs. Trenton Saenz, Antonette Fraser, Malcolm Dias and colleagues, with an educational andi from [employer]. CHALO-7 Assessment Billing CHALO-7 Assessment Tool: CHALO-7 Assessment 11179 Review of Systems Const All systems reviewed & are unremarkable except as noted in HPI and below Card Denies chest pain at rest, Denies chest pain with activity, Denies edema, Denies irregular heart rhythm, Denies claudication, Denies dyspnea, Denies dyspnea on exertion, Denies orthopnea, Denies paroxysmal nocturnal dyspnea and Denies slow heart rate Resp Denies cough, Denies dyspnea and Denies dyspnea on exertion Denies urinary hesitancy, Denies urinary incontinence and Denies urinary urgency Musc Denies atrophy, Denies deformity and Denies limited range of motion Physical exam (Primary Care) Vital Signs: Last Vital Signs BP 118/70 11/25/24 10:14 BMI result Body Mass Index 44.9 BMI Assessment/Plan discussion: High BMI High, discussed plan: lifestyle, weight reduction, dietary and physical activity Tobacco/Smoking Status: Tobacco use Status Tobacco use date assessed 09/01/24 11/25/24 10:12 Patient Tobacco Use Status Former Tobacco user 11/25/24 10:12 Tobacco use type Cigarette 11/25/24 10:12 e-Cigarette/Vaping Use Never Used 11/25/24 10:12 PHQ-9: PHQ-9 Score PHQ-9: Total score 3 11/25/24 10:50 Depression Screening Interpretation: Positive Depression Screening Follow-up: Existing condition and Follow-up Visit Requested Thrive Assessment: Date of Thrive Assessment Date Thrive assessed 09/01/24 11/25/24 10:12 Currently or been in a relationship where the following occur: I choose not to answer Const Limitations: ambulation with cane HENMT Head: Yes normal to inspection, Yes normocephalic and Yes atraumatic Ears: external ears normal Eyes General: appearance normal, both eyes and all related structures Eyelids: Yes eyelids normal Conjunctivae: conjunctivae normal Neck Neck: Yes normal visual inspection and Yes supple Resp Effort & Inspection: normal respiratory effort Auscultation: clear to auscultation bilaterally Cardio Jugular venous distension: no JVD Rate: regular rate Rhythm: regular rhythm Heart sounds: S1 normal heart sound present and S2 normal heart sound present GI Inspection: Yes normal to inspection Palpation (GI): Soft to palpation and nontender Auscultation: normal bowel sounds Skin General skin exam: no rashes or lesions noted Neuro General: no focal motor deficits Extrem General: Yes full ROM Psych Appearance: grossly normal Immunizations Boostrix Tdap 2.5 Lf unit-8 mcg-5 Lf/0.5 mL intramuscular syringe Performing Provider: Sulma Brock MD [place] [facility] [place] [facility] Administered by: VANESSA Bui on 11/25/24 10:50 Dose Route Admin Location Dispensed Lot Number Expiration Date [facility] Windows Phone Developer 0.5 mL IM Left Deltoid 0.5 mL [id number] 03/08/27 34099-255-67 [employer] VIS Given Date VIS Provided VIS Publication Date 11/25/24 Single Vaccine 24 Eligibility Eligibility Date Funding Source Not [facility] Eligible 11/25/24 Private Coding Level of Care Code Complex EM visit Add On G2211 Diagnoses Physical exam Z00.00 Morbid obesity E66.01 Paroxysmal atrial fibrillation I48.0 Infrarenal abdominal aortic aneurysm (AAA) without rupture I71.43 Abdominal aorta location: infrarenal aorta Presence of rupture: without rupture Additional Codes CHALO-7 Assessment Billing - CHALO-7 Assessment Tool: CHALO-7 Assessment 68598 ([id number]) PHQ-9 - 07268 - PHQ-9 Billing: Yes ([id number]) Time Spent (min) 31 Assessment & Plan Assessment & Plan (1) Physical exam: Code(s): Z00.00 - Encounter for general adult medical examination without abnormal findings Category: Medical (2) Morbid obesity: Code(s): E66.01 - Morbid (severe) obesity due to excess calories Category: Medical (3) Paroxysmal atrial fibrillation: Code(s): I48.0 - Paroxysmal atrial fibrillation Category: Medical (4) Abdominal aortic aneurysm: Code(s): I71.40 - Abdominal aortic aneurysm, without rupture, unspecified Category: Medical Qualifiers: Abdominal aorta location: infrarenal aorta Presence of rupture: without rupture Qualified Code(s): I71.43 - Infrarenal abdominal aortic aneurysm, without rupture Plan He should maintain his current exercise routine and adapt his diet further for continued weight loss.: Patient was informed and verbally consented to the use of an ambient scribe for clinic note documentation during this visit. I explained the importance of completing the shingles vaccination series to reduce the risk of herpes zoster, especially given the patient's age. The patient was informed about updating his Td/Tdap vaccination given the 20-year gap since his last administration. I reviewed his current medications, affirming their effectiveness in managing his chronic conditions. We discussed the benefits of maintaining his CPAP therapy and further encouraged his current lif estyle habits, noting their positive impact on weight control and mobility improvement. I recommended routine monitoring for the abdominal aortic aneurysm with the next ultrasound in 2026 as per established guidelines. Orders: Orders Complete Blood Count Auto Diff 4 Months D64.9 - Anemia, unspecified IRON PROFILE 4 Months D64.9 - Anemia, unspecified Vitamin D 25-OH Total 4 Months E55.9 - Vitamin D deficiency, unspecified Comprehensive [place]. Panel Fast 4 Months I10 - Essential (primary) hypertension Lipid Panel 4 Months E78.5 - Hyperlipidemia, unspecified TDaP Immunization Today Z23 - Encounter for immunization Medications: New varicella-zoster gE vac,2 of 2 (Shingrix gE Antigen Component) 0.5 mL IM ONCE 1 ea 0RF 1 day Refilled famotidine 40 mg PO DAILY 30 tabs 6RF vitamin A palmitate 3,000 mcg PO DAILY 90 caps 0RF 90 days acetaminophen ER 650 mg PO Q12H PRN 60 tabs 1RF pain 30 days pregabalin 50 mg PO BID 60 caps 0RF 30 days Patient Instructions: - Get the Shingrix vaccine series started at the pharmacy. - Schedule and receive Td/Tdap booster for tetanus protection. - Continue taking current medications as prescribed. - Keep following a healthy diet and engage in regular exercise. - Use the CPAP machine consistently at night. - Return for routine follow-up as per scheduling, especially for monitoring of known conditions.
[2024-11-25 10:14] VITALS: BP 118/70; BMI 44.9
== END 2024-11-25 10:55 | disposition home or self-care (01) ==
LOC: HO.HMCH 10:01
PROVIDERS: PCP Internal Medicine; Visit Provider Internal Medicine
DX: Z00.00 Encounter for general adult medical examination without abnormal findings (principal); I48.0 Paroxysmal atrial fibrillation; E66.01 Morbid (severe) obesity due to excess calories; Z68.41 Body mass index [BMI] 40.0-44.9, adult; I71.43 Infrarenal abdominal aortic aneurysm, without rupture; Z23 Encounter for immunization

== ENCOUNTER → 2024-11-25 10:00 | Outpatient (BNVA) | payer OTHER, MEDICAID, SELFPAY | PROVIDERS: PCP Internal Medicine; Visit Provider Internal Medicine | DX: Z00.00 Encounter for general adult medical examination without abnormal findings (principal); E66.01 Morbid (severe) obesity due to excess calories; I48.0 Paroxysmal atrial fibrillation; I71.43 Infrarenal abdominal aortic aneurysm, without rupture; D64.9 Anemia, unspecified; E55.9 Vitamin D deficiency, unspecified; I10 Essential (primary) hypertension; E78.5 Hyperlipidemia, unspecified; Z23 Encounter for immunization; Z68.41 Body mass index [BMI] 40.0-44.9, adult | CPT/HCPCS: 90471; 90715; 96127 ==

== ENCOUNTER 2025-03-22 09:11 | Outpatient (AMB) | payer OTHER, MEDICAID, SELFPAY ==
[2025-03-22 10:16] VITALS: BP 94/62; PULSE 68; BMI 42.1
--- NOTE | 2025-03-22 10:16 | A.OFFVIS_ITS ---
Vital Signs 03/22/25 10:16 Height 5 ft 9 in Weight 285 lb 4.45 oz BMI 42.1 BP 94/62 Blood Pressure Location Lt brachial Position Sitting Pulse 68 Pulse Source Monitor Intake Visit Reasons: 6m follow up Scow Captain Required: Yes Scow Captain Name: ambrosio hernandez [id number] Allergies No Known Allergies Allergy (Verified 03/22/25 10:20) Medication List - Last Reconciled 03/22/25 by JUAN Peters acetaminophen ER 650 mg PO Q12H PRN 30 days arm brace (Wrist Support Large-XLarge) As directed blood pressure monitor (Blood Pressure Kit) As directed cholecalciferol (vitamin D3) 50 mcg PO DAILY 90 days [cock up slint wear on each wrist at night ] CPAP (CPAP Machine/Device) As directed docusate sodium 100 mg PO DAILY PRN dronedarone (Multaq) 400 mg PO Q12H 90 days famotidine 40 mg PO DAILY fluticasone furoate 50 mcg/actuation (Arnuity Ellipta) 1 inh inhalation Q24H 30 days hospital bed As directed losartan 100 mg PO DAILY metoprolol tartrate 25 mg PO Q12H 90 days omeprazole 40 mg PO DAILY pregabalin 50 mg PO BID 30 days [recliner As directed] rivaroxaban (Xarelto) 20 mg PO DAILY 90 days rosuvastatin 5 mg PO DAILY@1730 90 days sennosides (senna) 17.2 mg (2 x 8.6 mg) PO DAILY PRN tirzepatide (weight loss) (Zepbound) 12.5 mg (0.5 mL) subcut QWEEK trazodone 50 mg PO BEDTIME PRN 90 days varicella-zoster gE vac,2 of 2 (Shingrix gE Antigen Component) 0.5 mL IM ONCE 1 day vitamin A palmitate 3,000 mcg PO DAILY 90 days HPI HPI 6m follow up: Details: Vaughn is a 69-year-old male with past medical history of hypertension, obstru ctive sleep apnea, infrarenal abdominal aortic aneurysm, cardiomyopathy with AFib RVR, paroxysmal atrial fibrillation s/p cardioversion 02/12/23 who presents for follow up. Today he reports he has been doing well overall. He has been working on weight loss and follows with the bariatric program. He is trying to increase his physical activity. He ambulates with a cane and does stretching exercises at home. He has no chest discomfort at rest or with activity. He has some shortness of breath with activity. No PND, orthopnea or edema. No heart palpitations, lightheadedness, presyncope, syncope. Taking meds as directed. No bleeding issues reported. COUNTS INCLUDE 234 BEDS AT THE [facility] Medical History BMI 39.0-39.9,adult Obesity Physical exam Insomnia Numbness and tingling in both hands Bilateral shoulder pain Former smoker History of cardiomyopathy Peptic ulcer disease Shortness of breath Obstructive sleep apnea HTN (hypertension) Paroxysmal atrial fibrillation Primary osteoarthritis involving multiple joints Mild asthma Chronic idiopathic constipation Surgical History History of cardioversion History of esophagogastroduodenoscopy (EGD) History of cholecystectomy Family History Mother Diabetes High blood pressure Heart attack Heart problem Father Diabetes Stomach problems Brother Diabetes High blood pressure Stomach problems Paternal Grandmother Lung cancer Sister Cancer Stomach problems Maternal Grandfather Heart problem Maternal Grandmother Heart problem Family/Other Substance use disorder Social History Household Members: Children Housing: Apartment Alcohol intake: never Patient Tobacco Use Status: Former Tobacco user Tobacco use type: Cigarette Cigarettes Per Day: 4 Years Smoked: 10 e-Cigarette/Vaping Use: Never Used Second Hand Smoke Exposure: No service: No Current occupational status: disabled Cognitive needs: Yes Hearing needs: No Vision needs: Yes Review of Systems Const All systems reviewed & are unremarkable except as noted in HPI and below ENT Denies dizziness Card Denies chest pain, Denies chest pain at rest, Denies chest pain with activity, Denies rapid heart rate, Denies pedal edema, Denies edema, Denies leg edema, Denies lightheadedness, Denies palpitations, Denies dyspnea, Denies dyspnea on exertion and Denies orthopnea Resp Denies cough, Denies dyspnea and Denies dyspnea on exertion GI Denies hematochezia and Denies change in stool character Musc Details: uses can Denies abnormal gait, Denies limited range of motion, Denies muscle cramps, Denies muscle weakness, Denies numbness, Denies radiating pain into limb, Denies stiffness and Denies tingling Neuro Denies abnormal gait, Denies dizziness, Denies numbness and Denies tingling Endo Denies palpitations Physical Exam Vital Signs: BMI result Body Mass Index 42.1 Const General: cooperative, healthy appearing, comfortable and no acute distress Orientation/consciousness: patient oriented x3 Neck Neck: Yes normal visual inspection and Yes no JVD Resp Effort & Inspection: normal respiratory effort Auscultation: clear to auscultation bilaterally, no crackles, no rales, no rhonchi and no wheezes Cardio Rate: regular rate Rhythm: regular rhythm Heart sounds: S1 normal heart sound present, S2 normal heart sound present, no gallops, no murmurs and no rubs Neuro General: patient oriented x3 Extrem General: Yes normal to inspection, No no pedal edema and No calf tenderness Psych Appearance: grossly normal Mental Status: mental status grossly normal Speech and movement: Normal speech and movement present Assessment & Plan Assessment & Plan (1) Paroxysmal atrial fibrillation: Code(s): I48.0 - Paroxysmal atrial fibrillation Category: Medical Plan: History of paroxysmal atrial fibrillation with at least 2 cardioversions in the past, treated with a rhythm control. Last echocardiogram 04/11/2023 showed EF 55-60%, normal valves, left atrium likely dilated, right atrium not well vis ualized. EKG done today showing sinus rhythm with 2 PVCs, rate 68, QTC 455 millisecond. He is on Multaq 400 mg b.i.d. as well as metoprolol 25 mg b.i.d.. He is on Xarelto for anticoagulation. He denies any recent heart palpitations or bleeding issues. Labs done 04/29/2024 showed hemoglobin 14.5, creatinine 1.49. He is due for updated updated labs which he plans to get prior to upcoming PCP visit. No med changes made. Office EKG every 3 months with Multaq use. Cardiology follow-up with EKG 6 months, sooner if needed. 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 Initial check 94/62, recheck done by me 102/. Reviewed good hydration. Continue losartan and metoprolol. He has lost weight recently. If blood pressure is starting to run low with systolic less than 100 his losartan dose can be reduced. Has PCP visit later this month. No med changes made at this time. (4) Obstructive sleep apnea: Code(s): G47.33 - Obstructive sleep apnea (adult) (pediatric) Category: Medical Plan: Compliant with CPAP. (5) Morbid obesity: Code(s): E66.01 - Morbid (severe) obesity due to excess calories Category: Medical Plan: Following with bariatric program. (6) Abdominal aortic aneurysm: Code(s): I71.40 - Abdominal aortic aneurysm, without rupture, unspecified Category: Medical Qualifiers: Abdominal aorta location: infrarenal aorta Presence of rupture: without rupture Qualified Code(s): I71.43 - Infrarenal abdominal aortic aneurysm, without rupture Plan: Followed by Dr Jett. last abdominal arterial ultrasound 10/14/23 Infrarenal abdominal aortic aneurysm measuring 3 x 2.3 cm, unchanged. Recommend followup every 3 years Plan I discussed with the patient the importance of maintaining his current medication regimen and using the CPAP machine consistently for sleep apnea management. We reviewed his blood pressure readings and advised him to ensure adequate hydration to manage his low blood pressure. The patient was reminded to follow up with his primary care physician and complete blood work prior to his next appointment. Medications: Refilled dronedarone (Multaq) 400 mg PO Q12H 180 tabs 1RF 90 days Patient Instructions: - Continue using the CPAP machine every night. - Maintain your current medication regimen. - Ensure adequate hydration to manage low blood pressure. - Follow up with your primary care physician and complete blood work before the next appointment. Patient was informed and verbally consented to the use of an ambient scribe for clinic note documentation during this visit. Visit time spent on chart review, interview, assessment, orders, documentation. Coding Level of Care Code Est Pt Level 4 (48493) Complex EM visit Add On G2211 Diagnoses Paroxysmal atrial fibrillation I48.0 Chronic anticoagulation Z79.01 Essential hypertension I10 Hypertension type: essential hypertension Obstructive sleep apnea G47.33 Morbid obesity E66.01 Infrarenal abdominal aortic aneurysm (AAA) without rupture I71.43 Abdominal aorta location: infrarenal aorta Presence of rupture: without rupture Time Spent (min) 28
== END 2025-03-22 10:46 | disposition home or self-care (01) ==
LOC: HO.HCS 09:12
PROVIDERS: PCP Internal Medicine; Visit Provider Nurse Practitioner Family
DX: I48.0 Paroxysmal atrial fibrillation (principal); Z79.01 Long term (current) use of anticoagulants; I10 Essential (primary) hypertension; G47.33 Obstructive sleep apnea (adult) (pediatric); E66.01 Morbid (severe) obesity due to excess calories; I71.43 Infrarenal abdominal aortic aneurysm, without rupture
CPT/HCPCS: 93010; 99214; G2211

== ENCOUNTER → 2025-03-22 09:11 | Outpatient (BNVA) | payer OTHER, MEDICAID, SELFPAY | PROVIDERS: PCP Internal Medicine; Visit Provider Nurse Practitioner Family | DX: I48.0 Paroxysmal atrial fibrillation (principal); Z79.01 Long term (current) use of anticoagulants; G47.33 Obstructive sleep apnea (adult) (pediatric); I10 Essential (primary) hypertension; I71.43 Infrarenal abdominal aortic aneurysm, without rupture; E66.01 Morbid (severe) obesity due to excess calories; Z68.41 Body mass index [BMI] 40.0-44.9, adult | CPT/HCPCS: 93005 ==

== ENCOUNTER 2025-03-28 07:25 | Outpatient (REF) | payer MEDICARE, SELFPAY ==
[2025-03-28 07:47] LABS: MANUAL DIFF FLAG NO
[2025-03-28 08:30] LABS: Hematocrit 41.4 % (42.0-52.0); Hemoglobin 13.5 g/dl (14.0-18.0); Imm Gran Abs Auto 0.03 X10*3/uL (0.00-0.03); Imm Gran Pct Auto 0.4 % (0.0-0.4); Lymphocytes Absolute Auto 2.3 X10*3/uL (1.2-4.9); Mean Corpuscular HGB Conc 32.6 g/dl (31.0-36.0); Mean Corpuscular Hemoglobin 29.3 pg (27.0-33.0); Mean Corpuscular Volume 89.8 fL (80.0-98.0); NRBC Abs Auto 0.000 X10*3/uL (0.0-0.012); NRBC Pct Auto 0.0 /100WBC (0.0-0.2); Platelet Count 163 X10*3/uL (160-400); Red Blood Count 4.61 X10*6/uL (4.60-5.80); White Blood Count 7.9 X10*3/uL (4.8-10.8)
[2025-03-28 08:59] LABS: Alanine Aminotransferase 10 U/L (0-40); Albumin Level 4.5 g/dL (3.5-5.0); Alkaline Phosphatase 64 U/L (39-117); Anion Gap 12 (12-20); Aspartate Amino Transferase 21 U/L (5-37); Blood Urea Nitrogen 17 mg/dL (9-16); Calcium 9.5 mg/dL (8.4-10.2); Carbon Dioxide 23 mmol/L (22-29); Chloride 107 mmol/L (96-108); Cholesterol 104 mg/dL (<200); Estimated Glomerular Filt Rate 52; HDL Cholesterol 46 mg/dL (>40); Iron 79 mcg/dL (45-160); Percent Iron Saturation 30 % (15-50); Potassium 4.3 mmol/L (3.3-5.1); Sodium 138 mmol/L (135-145); Total Iron Binding Capacity 266 mcg/dL (228-428); Total Protein 7.8 g/dL (6.5-8.0); Triglycerides 71 mg/dL (<150); Unsaturated Iron Binding 187 ug/dL
[2025-03-28 09:16] LABS: Thyroid Stimulating Hormone 2.14 uIU/mL (0.32-4.0)
[2025-03-28 09:32] LABS: Folate 11.5 ng/mL (> or = 4.0); Vitamin B12 300 pg/mL (200-900)
== END 2025-03-28 07:26 | disposition home or self-care (01) ==
LOC: HO.LAB 07:25
PROVIDERS: PCP Internal Medicine; Visit Provider Internal Medicine
DX: I10 Essential (primary) hypertension (principal); I48.0 Paroxysmal atrial fibrillation; E55.9 Vitamin D deficiency, unspecified; E78.5 Hyperlipidemia, unspecified; E53.8 Deficiency of other specified B group vitamins; D64.9 Anemia, unspecified
CPT/HCPCS: 36415; 80053; 80061; 82306; 82607; 82746; 83540; 84443; 85025

== ENCOUNTER 2025-04-07 10:06 | Outpatient (AMB) | payer OTHER, MEDICAID, SELFPAY ==
[2025-04-07 10:22] VITALS: BP 110/80; PULSE 68; TEMP 36.1; O2SAT 97; BMI 42.6
--- NOTE | 2025-04-07 10:22 | A.OFFPC_ITS ---
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 Accompanied by: Self / Same As Patient Allergies No Known Allergies Allergy (Verified 04/07/25 10:46) Medication List - Last Reconciled 04/07/25 by Sulma Brock MD acetaminophen ER 650 mg PO Q12H PRN 30 days arm brace (Wrist Support Large-XLarge) As directed blood pressure monitor (Blood Pressure Kit) As directed cholecalciferol (vitamin D3) 50 mcg PO DAILY 90 days [cock up slint wear on each wrist at night ] CPAP (CPAP Machine/Device) As directed docusate sodium 100 mg PO DAILY PRN dronedarone (Multaq) 400 mg PO Q12H 90 days famotidine 40 mg PO DAILY fluticasone furoate 50 mcg/actuation (Arnuity Ellipta) 1 inh inhalation Q24H 30 days hospital bed As directed losartan 100 mg PO DAILY metoprolol tartrate 25 mg PO Q12H 90 days omeprazole 40 mg PO DAILY pregabalin 50 mg PO BID 30 days [recliner As directed] rivaroxaban (Xarelto) 20 mg PO DAILY 90 days rosuvastatin 5 mg PO DAILY@1730 90 days sennosides (senna) 17.2 mg (2 x 8.6 mg) PO DAILY PRN tirzepatide (weight loss) (Zepbound) 12.5 mg (0.5 mL) subcut QWEEK trazodone 50 mg PO BEDTIME PRN 90 days varicella-zoster gE vac,2 of 2 (Shingrix gE Antigen Component) 0.5 mL IM ONCE 1 day vitamin A palmitate 3,000 mcg PO DAILY 90 days Tobacco use date assessed: 04/07/25 Fall risk assessment: No Falls in past year Last assessed Fall Risk: 04/07/25 Dental Screening Dental Screen Date: 11/25/24 Did you have a dental visit in the last 12 months?: Yes Did you have a dental problem in the last 6 months where you did not have access to dental care?: No Was dental information given to patient?: Patient has dentist HPI HPI Comments History of Present Illness Details The patient is a 69-year-old male presenting with chronic condition management and weight management. He has a history of obesity, with recent weight fluctuations noted from 304 pounds in November to 288 pounds currently. The current medication regimen is not effective for weight loss, and alternative options such as phentermine were discussed, noting potential serious side effects. The patient has chronic kidney disease, with a history of fluctuating renal function. His glomerular filtration rate (GFR) was previously 47, which improved to 52, indicating some stability in his condition. He is aware that his kidney function is not at full capacity but is stable with current management. The patient has a history of atrial fibrillation, managed with Multaq. He is also on Losartan and Metoprolol for blood pressure management, and Rosuvastatin for hyperlipidemia. The patient experiences gastroesophageal reflux disease, managed with Omeprazole and Famotidine. He also uses Docusate for constipation management. Preventative care measures include a positive Cologuard test, which requires further evaluation. [facility] Medical History BMI 39.0-39.9,adult Obesity Physical exam Insomnia Numbness and tingling in both hands Bilateral shoulder pain Former smoker History of cardiomyopathy Peptic ulcer disease Shortness of breath Obstructive sleep apnea HTN (hypertension) Paroxysmal atrial fibrillation Primary osteoarthritis involving multiple joints Mild asthma Chronic idiopathic constipation Surgical History History of cardioversion History of esophagogastroduodenoscopy (EGD) History of cholecystectomy Family History Mother Diabetes High blood pressure Heart attack Heart problem Father Diabetes Stomach problems Brother Diabetes High blood pressure Stomach problems Paternal Grandmother Lung cancer Sister Cancer Stomach problems Maternal Grandfather Heart problem Maternal Grandmother Heart problem Family/Other Substance use disorder Social History Household Members: Children Housing: Apartment Alcohol intake: never Patient Tobacco Use Status: Former Tobacco user Tobacco use type: Cigarette Cigarettes Per Day: 4 Years Smoked: 10 e-Cigarette/Vaping Use: Never Used Second Hand Smoke Exposure: No service: No Current occupational status: disabled Cognitive needs: Yes Hearing needs: No Vision needs: Yes Questionnaire PHQ-9 Over the last 2 weeks, how often have you been bothered by any of the following problems? 1. Little interest or pleasure in doing things: more than half the days 2. Feeling down, depressed, or hopeless: not at all 3. Trouble falling or staying asleep, or sleeping too much: not at all 4. Feeling tired or having little energy: not at all 5. Poor appetite or overeating: not at all 6. Feeling bad about yourself - or that you are a failure or have let yourself or your family down: not at all 7. Trouble concentrating on things, such as reading the newspaper or watching television: not at all 8. Moving or speaking so slowly that other people could have noticed. Or the opposite - being so fidgety or restless that you have been moving around a lot more than usual: several days 9. Thoughts that you would be better off or of hurting yourself in some way: not at all Total score: 3 Depression Screening Interpretation: Positive Depression Screening Follow-up: Existing condition and Follow-up Visit Requested Depression Screening Done: Yes 54311 - PHQ-9 Billing: Yes Source: Developed by Drs. Trenton Saenz, Antonette rFaser, Malcolm Dias and colleagues, with an educational andi from [employer]. Thrive Questionnaire Date Thrive assessed: 11/25/24 I am a: Patient What is your living situation today?: I have a steady place to live Within the past 12 months, did the food you bought not last and you didn't have the money to get more?: Never true Within the past 12 months, did you worry whether your food would run out before you got money to buy more?: Never true Do you have trouble paying for medicines?: No Do you have trouble getting transportation to medical appointments?: No Do you have trouble paying your heating and electricity bill?: No Do you have trouble taking care of your child, family member or friend?: I choose not to answer this question Do you have trouble with day-to-day activities such as bathing, preparing meals, shopping, managing finances, etc.?: Yes Are you currently unemployed and looking for a job?: No Are you interested in more education?: No Please select the resources that you would like help with: None Currently or been in a relationship where the following occur: I choose not to answer THRIVE Score: 0 AUDIT C Alcohol Use Questionnaire (AUDIT-C) 1. How often do you have a drink containing alcohol?: Never 3. How often do you have six or more drinks on one occasion?: Never Total Score: 0 Score Reviewed/Action Taken: No CHALO-7 AMB Questionnaire CHALO-7 Date CHALO - 7 assessed: 09/01/24 Feeling nervous, anxious, or on edge: 1 = Several days Not being able to stop or control worryin = Not at all Worrying too much about different things: 0 = Not at all Trouble relaxin = Not at all Being so restless that it is hard to sit still: 2 = More than half the days Becoming easily annoyed or irritable: 0 = Not at all Feeling afraid as if something awful might happen: 0 = Not at all Total CHALO-7 score (0-4 normal; 5-9 mild; 10-14 moderate; 15-21 severe): 3 Source: Developed by Drs. Trenton Saenz, Antonette Fraser, Malcolm Dias and colleagues, with an educational andi from [employer]. CHALO-7 Assessment Billing CHALO-7 Assessment Tool: CHALO-7 Assessment 54335 Review of Systems Const All systems reviewed & are unremarkable except as noted in HPI and below Card Denies chest pain at rest, Denies chest pain with activity, Denies edema, Denies irregular heart rhythm, Denies claudication, Denies dyspnea, Denies dyspnea on exertion, Denies orthopnea, Denies paroxysmal nocturnal dyspnea and Denies slow heart rate Resp Denies cough, Denies dyspnea and Denies dyspnea on exertion Physical exam (Primary Care) Vital Signs: Last Vital Signs Temp 97.0 F 04/07/25 10:22 Pulse 68 04/07/25 10:22 BP 110/80 04/07/25 10:22 Pulse Ox 97 04/07/25 10:22 Oxygen Delivery Method Room Air 04/07/25 10:22 BMI result Body Mass Index 42.6 BMI Assessment/Plan discussion: High BMI High, discussed plan: lifestyle, weight reduction, dietary and physical activity Tobacco/Smoking Status: Tobacco use Status Tobacco use date assessed 04/07/25 04/07/25 10:27 Patient Tobacco Use Status Former Tobacco user 04/07/25 10:27 Tobacco use type Cigarette 04/07/25 10:27 e-Cigarette/Vaping Use Never Used 04/07/25 10:27 PHQ-9: PHQ-9 Score PHQ-9: Total score 3 04/07/25 10:52 Depression Screening Interpretation: Positive Depression Screening Follow-up: Existing condition and Follow-up Visit Requested Thrive Assessment: Date of Thrive Assessment Date Thrive assessed 11/25/24 04/07/25 10:27 Currently or been in a relationship where the following occur: I choose not to answer Const Limitations: ambulation with cane Neck Neck: Yes normal visual inspection and Yes supple Resp Effort & Inspection: normal respiratory effort Auscultation: clear to auscultation bilaterally Extrem General: Yes full ROM Coding Level of Care Code Est Pt Level 4 (54827) Complex EM visit Add On G2211 Diagnoses Essential hypertension I10 Paroxysmal atrial fibrillation I48.0 Morbid obesity E66.01 Dyslipidemia E78.5 Additional Codes CHALO-7 Assessment Billing - CHALO-7 Assessment Tool: CHALO-7 Assessment 21717 ([id number]) PHQ-9 - 36746 - PHQ-9 Billing: Yes ([id number]) Time Spent (min) 24 Assessment & Plan Assessment & Plan (1) Essential hypertension: Code(s): I10 - Essential (primary) hypertension Category: Medical (2) Paroxysmal atrial fibrillation: Code(s): I48.0 - Paroxysmal atrial fibrillation Category: Medical (3) Morbid obesity: Code(s): E66.01 - Morbid (severe) obesity due to excess calories Category: Medical (4) Dyslipidemia: Code(s): E78.5 - Hyperlipidemia, unspecified Category: Medical Plan Plan Patient was informed and verbally consented to the use of an ambient scribe for clinic note documentation during this visit. 1. Obesity The patient is advised to continue weight management efforts, focusing on portion control and dietary modifications. Phentermine was discussed as a potential option, but due to its side effects, it is not recommended. 2. Chronic Kidney Disease The patient's kidney function is stable, with a GFR improvement noted. Continued monitoring of renal function is advised. 3. Atrial Fibrillation The patient is currently managed with Multaq, and no changes to this regimen were discussed. 4. Hyperlipidemia The patient is on Rosuvastatin for cholesterol management, and no changes were discussed. 5. Gastroesophageal Reflux Disease The patient is managed with Omeprazole and Famotidine, with no changes to the regimen discussed. 6. Constipation The patient uses Docusate for management, and no current issues were reported. 7. Positive Cologuard Test Further evaluation is recommended following the positive Cologuard test.
== END 2025-04-07 11:01 | disposition home or self-care (01) ==
LOC: HO.HMCH 10:07
PROVIDERS: PCP Internal Medicine; Visit Provider Internal Medicine
DX: I10 Essential (primary) hypertension (principal); I48.0 Paroxysmal atrial fibrillation; E66.01 Morbid (severe) obesity due to excess calories; Z68.41 Body mass index [BMI] 40.0-44.9, adult; E78.5 Hyperlipidemia, unspecified

== ENCOUNTER → 2025-04-07 10:06 | Outpatient (BNVA) | payer OTHER, MEDICAID, SELFPAY | PROVIDERS: PCP Internal Medicine; Visit Provider Internal Medicine | DX: I12.9 Hypertensive chronic kidney disease with stage 1 through stage 4 chronic kidney disease, or unspecified chronic kidney disease (principal); N18.9 Chronic kidney disease, unspecified; I48.0 Paroxysmal atrial fibrillation; E66.01 Morbid (severe) obesity due to excess calories; Z68.41 Body mass index [BMI] 40.0-44.9, adult; E78.5 Hyperlipidemia, unspecified; K21.9 Gastro-esophageal reflux disease without esophagitis; K59.00 Constipation, unspecified; R19.5 Other fecal abnormalities; Z79.899 Other long term (current) drug therapy; Z13.31 Encounter for screening for depression | CPT/HCPCS: 96127 ==

== ENCOUNTER → 2025-06-24 11:15 | Outpatient (REF) | payer MEDICARE, MEDICAID, SELFPAY | LOC: HO.CARD 11:15 | PROVIDERS: PCP Internal Medicine; Visit Provider Nurse Practitioner Family | DX: I48.0 Paroxysmal atrial fibrillation (principal); I49.3 Ventricular premature depolarization | CPT/HCPCS: 93242 ==

== ENCOUNTER → 2025-06-24 11:19 | Outpatient (BNV) | payer MEDICARE, MEDICAID, SELFPAY | PROVIDERS: PCP Internal Medicine; Visit Provider Internal Medicine Cardiovascular Disease | DX: I49.3 Ventricular premature depolarization (principal); R00.1 Bradycardia, unspecified | CPT/HCPCS: 93244 ==